=== PATIENT | female | born 1945 | race Caucasian/White ===

== ENCOUNTER 2017-11-22 20:18 | Emergency (ER) | payer BC, MEDICARE, SELFPAY ==
[2017-11-22 20:43] VITALS: BP 132/74; PULSE 76; RESP 20; TEMP 36.8; O2SAT 98; BMI 30.5
--- NOTE | 2017-11-22 21:11 | XR_ITS ---
XR knee RT 3V HISTORY: Pain following injury ITS.REASON: FELL AT HOME ORDERING PHYSICIAN: Ana Cristina Xavier PATIENT AGE: 72 years COMPARISON: 06/24/2014 FINDINGS: No fracture or dislocation. No lytic or blastic change. Normal mineralization. Mild tricompartmental osteoarthritic changes are present No other significant findings IMPRESSION: Mild osteoarthritis, no acute finding
--- NOTE | 2017-11-22 21:11 | XR_ITS ---
XR knee LT 3V HISTORY: Pain following injury ITS.REASON: FELL AT HOME ORDERING PHYSICIAN: Ana Cristina Xavier PATIENT AGE: 72 years COMPARISON: 03/25/2017 FINDINGS: No fracture or dislocation. No lytic or blastic change. Normal mineralization. Mild tricompartmental osteoarthritic change. Possible small suprapatellar effusion No other significant findings IMPRESSION: No acute fracture. Mild osteoarthritis with small knee joint effusion
--- NOTE | 2017-11-22 21:27 | HMH.EDUTC ---
[facility] [place] Disposition Clinical Impression: Bilateral knee pain Qualifiers: Chronicity: unspecified Qualified Code(s): M25.561 - Pain in right knee; M25.562 - Pain in left knee Disposition: Home, Self-Care Condition on Discharge: Good Instructions: How To Perform RICE (Rest, Ice, Compress, Elevate), DI for Knee Pain Additional Instructions: Follow up with family doctor Rest legs, keep elevated and if you began to notice worsening of swelling, discoloration of legs, feet cold to touch go straight to ER Over the counter Motrin or Tylenol as needed for pain Follow up with Orthopedics if needed The radiologist will read your xray, if they seen any different findings from what was told to you in the [facility] we will call you Return if needed Referrals: Ray Rose MD [Primary Care Provider] - 3 days (24-48 hours if no improvement or worsening of symptoms) Forms: Work/School Release Time of Disposition: 21:48 Medical Decision Making - Medical Records Medical records reviewed: Yes: I reviewed the patient's medical records. - Celso Inquiry Pt receiving controlled substance: No Celso was queried for this patient: No Vital Signs: 11/22/17 20:43 Temperature 98.2 F Temperature Source Temporal Artery Scan Pulse Rate [Right] 76 Respiratory Rate 20 Blood Pressure [Right Arm] 132/74 Blood Pressure Mean [Right Arm] 93 Blood Pressure Source [Right Arm] Automatic Cuff Blood Pressure Position [Right Arm] Sitting 02 Sat by Pulse Oximetry 98 Oxygen Delivery Method Room Air Orders (Tests/Meds): ORDERS Category Date Time Status Knee XR left 3 views [XR knee LT 3V] Stat Exams 11/22/17 21:11 Taken XR knee RT 3V Stat Exams 11/22/17 21:11 Taken - Radiology Data #1 Image(s): Other (Bilateral knee xrays) Image Reviewed: Yes I reviewed the patient's radiology image Preliminary Findings: No Fracture Seen (Will have radiologist do official reading and call patient if any different finding) [facility] [place] HPI - General Stated complaint: AO [id number] Fell on knees/Pain at location Time Seen by Provider: 11/22/17 20:45 Mode of Arrival: Ambulatory Source of Information: Patient Limitations: No Limitations Description of Symptoms (Recalled from Triage Doc. by RN): FELL YESTERDAY, PAIN TO BOTH KNEES HEENT Symptoms (Recalled from RN notes): No Resp Symptoms (Recalled from RN notes): No Skin Symptoms (Recalled from RN notes): No MS Symptoms (Recalled from RN notes): Yes Functional Status (Recalled from RN notes): N - History of Present Illness Provider Complaint: Patient state that she has had a history of problems with her knees State that yesterday she fell and landed on both her knees and now she is having pain and bruising and wanted to come in and get a MRI done - Related Data Allergies Allergy/AdvReac Type Severity Reaction Status Date / Time No Known Allergies Allergy Verified 11/22/17 20:49 - Worker's Comp Is this a Worker's Comp case?: No H History I have reviewed the patient's past medical history: Yes - Social History Alcohol Intake: never - Psychiatric History Expresses thoughts of harming self/others: None Suicide Plan Description: No Plan ROS Obtained: Yes All systems reviewed & no additional complaints - Allergic/Immunologic Comments: Bilateral knee pain and swelling after falling yesterday and landing on her knees Physical Exam - General General appearance: alert, in no apparent distress - Respiratory Respiratory exam: Present: normal lung sounds bilaterally. Absent: respiratory distress - Cardiovascular Cardiovascular exam: Present: regular rate, normal rhythm. Absent: JVD - Abdominal Exam Abdominal exam: Present: soft, normal bowel sounds. Absent: distention, tenderness, guarding - Expanded Lower Extremity Exam bilateral Knee exam: Present: tenderness, swelling, other - Neurological Exam Neurological exam: Present: alert, oriented X3 - Other Other exam informati
--- NOTE | 2017-11-22 21:30 | ED_ITS ---
[facility] [place] Clinical Impression: Bilateral knee pain Qualifiers: Chronicity: unspecified Qualified Code(s): M25.561 - Pain in right knee; M25.562 - Pain in left knee Disposition: Home, Self-Care Condition on Discharge: Good Instructions: How To Perform RICE (Rest, Ice, Compress, Elevate), DI for Knee Pain Additional Instructions: Follow up with family doctor Rest legs, keep elevated and if you began to notice worsening of swelling, discoloration of legs, feet cold to touch go straight to ER Over the counter Motrin or Tylenol as needed for pain Follow up with Orthopedics if needed The radiologist will read your xray, if they seen any different findings from what was told to you in the [facility] we will call you Return if needed Referrals: Ray Rose MD [Primary Care Provider] - 3 days (24-48 hours if no improvement or worsening of symptoms) Forms: Work/School Release Time of Disposition: 21:48 Medical Decision Making - Medical Records Medical records reviewed: Yes: I reviewed the patient's medical records. - Celso Inquiry Pt receiving controlled substance: No Celso was queried for this patient: No Vital Signs: 11/22/17 20:43 Temperature 98.2 F Temperature Source Temporal Artery Scan Pulse Rate [Right] 76 Respiratory Rate 20 Blood Pressure [Right Arm] 132/74 Blood Pressure Mean [Right Arm] 93 Blood Pressure Source [Right Arm] Automatic Cuff Blood Pressure Position [Right Arm] Sitting 02 Sat by Pulse Oximetry 98 Oxygen Delivery Method Room Air Orders (Tests/Meds): ORDERS Category Date Time Status Knee XR left 3 views [XR knee LT 3V] Stat Exams 11/22/17 21:11 Taken XR knee RT 3V Stat Exams 11/22/17 21:11 Taken - Radiology Data #1 Image(s): Other (Bilateral knee xrays) Image Reviewed: Yes I reviewed the patient's radiology image Preliminary Findings: No Fracture Seen (Will have radiologist do official reading and call patient if any different finding) [facility] [place] HPI - General Stated complaint: AO [id number] Fell on knees/Pain at location Time Seen by Provider: 11/22/17 20:45 Mode of Arrival: Ambulatory Source of Information: Patient Limitations: No Limitations Description of Symptoms (Recalled from Triage Doc. by RN): FELL YESTERDAY, PAIN TO BOTH KNEES HEENT Symptoms (Recalled from RN notes): No Resp Symptoms (Recalled from RN notes): No Skin Symptoms (Recalled from RN notes): No MS Symptoms (Recalled from RN notes): Yes Functional Status (Recalled from RN notes): N - History of Present Illness Provider Complaint: Patient state that she has had a history of problems with her knees State that yesterday she fell and landed on both her knees and now she is having pain and bruising and wanted to come in and get a MRI done - Related Data Allergies Allergy/AdvReac Type Severity Reaction Status Date / Time No Known Allergies Allergy Verified 11/22/17 20:49 - Worker's Comp Is this a Worker's Comp case?: No H History I have reviewed the patient's past medical history: Yes - Social History Alcohol Intake: never - Psychiatric History Expresses thoughts of harming self/others: None Suicide Plan Description: No Plan ROS Obtained: Yes All systems reviewed & no additional complaints - Allergic/Immunologic Comments: Bilateral knee pain and swelling after falling yesterday and landing
[2017-11-22 21:41] VITALS: BP 132/74; PULSE 76; RESP 20; TEMP 36.8
== END 2017-11-22 21:51 | disposition home or self-care (01) ==
PROVIDERS: Emergency Provider Nurse Practitioner; Family Provider Family Medicine; PCP Family Medicine
DX: M25.562 Pain in left knee (principal); M25.561 Pain in right knee; W01.0XXA Fall on same level from slipping, tripping and stumbling without subsequent striking against object, initial encounter; Y92.019 Unspecified place in single-family (private) house as the place of occurrence of the external cause
CPT/HCPCS: 73562; 99201

== ENCOUNTER → 2019-07-01 15:04 | Outpatient (CLI) | payer MEDICARE, SELFPAY ==
--- NOTE | 2019-07-01 15:20 | MM_ITS ---
PROCEDURE: MM DIG SCREENING MAMM BI W/CAD Patient Age:74Y CLINICAL INDICATION: SCREENING routine screening mammogram with no hormones. No new complaints. Noncontributory family history COMPARISON: DMDXUAVR DIG MAMM-DX UNIL ADD VIEWS-RT from 11/27/2010 DMSB DIGITAL MAMM-SCREEN BILATERAL from 11/29/2011 DMSB DIGITAL MAMM-SCREEN BILATERAL from 11/28/2012 DIGMAMMS MAMMOGRAM SCREEN-NAIL SETTER N/C from 12/10/2013 DMSB DIG MAMM-SCREEN SHERMAN from 12/20/2014 DMSB DIG MAMM-SCREEN SHERMAN from 05/03/2016 DMSB DIG MAMM-SCREEN SHERMAN W/CAD from 05/28/2017 TECHNIQUE: Standard CC and MLO images were obtained. R2 CAD reviewed. Additional left MLO view included nipple profile FINDINGS: Low-density breast with generalized fatty replacement. No dominant or suspicious mass. No significant new findings, no suspicious calcifications. Bilateral follow-up 1 year recommended Right breast. No new areas of significant concern Scattered areas minimal density on MLO and cc view or have been present since 2013 and 2012. A no significant new findings Left breast., unremarkable IMPRESSION: Stable bilateral mammogram.. Follow-up 1 year recommended BI-RAD Category: 1 Negative FOLLOW-UP: 1YR 1 Year Follow-up (A letter has been sent to the patient regarding results of the study.) Dictated by: Gideon Baca MD 07/02/2019 13:36 Electronically signed by Gideon Baca MD in [place] 07/02/2019 13:36
== END ==
PROVIDERS: PCP Family Medicine; Visit Provider Obstetrics & Gynecology
DX: Z12.31 Encounter for screening mammogram for malignant neoplasm of breast (principal)
CPT/HCPCS: 77067

== ENCOUNTER → 2019-10-16 09:32 | Outpatient (CLI) | payer OTHER, SELFPAY ==
--- NOTE | 2019-10-16 09:49 | XR_ITS ---
PROCEDURE: XR RIBS RT MIN 3V W CXR1V CLINICAL INDICATION: RIB FX Right mid to lower rib pain following injury COMPARISON: CXR CHEST(2 VIEWS-NOT PORTABLE) from 10/02/2013 FINDINGS: A frontal view of the chest shows no acute finding. There is a subtle lucency through the anterior aspect of the right 4th rib suggesting a nondisplaced fracture. No other significant anomalies. Postsurgical changes right shoulder. IMPRESSION: Possible nondisplaced fracture right 4th rib Dictated by: Carlos Navarro MD 10/16/2019 12:53 Electronically signed by Carlos Navarro MD in [place] 10/16/2019 12:53
== END ==
PROVIDERS: PCP Family Medicine; Visit Provider Anesthesiology Pain Medicine
DX: S22.39XA Fracture of one rib, unspecified side, initial encounter for closed fracture (principal)
CPT/HCPCS: 71101

== ENCOUNTER → 2020-04-15 12:30 | Outpatient (CLI) | payer MEDICARE, SELFPAY ==
--- NOTE | 2020-04-15 12:44 | XR_ITS ---
PROCEDURE: XR HIP LT 2-3V W/PELVIS CLINICAL INDICATION: LT HIP OA Left hip pain COMPARISON: No exams were available for comparison FINDINGS: There are moderate osteoarthritic changes of the left hip with loss of joint space osteosclerosis and osteophyte formation. No fracture or dislocation. No lytic or blastic change. There are incidental mild osteoarthritic changes of the right hip. 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
== END ==
PROVIDERS: PCP Family Medicine; Visit Provider Anesthesiology Pain Medicine
DX: M76.11 Psoas tendinitis, right hip (principal)
CPT/HCPCS: 73502

== ENCOUNTER → 2020-06-09 12:53 | Outpatient (CLI) | payer MEDICARE, SELFPAY ==
--- NOTE | 2020-06-09 12:59 | MM_ITS ---
PROCEDURE: MM DIG SCREENING MAMM BI W/CAD Referring Doctor: Leo Dennis Patient Age:75Y CLINICAL INDICATION: SCREENING 75-year-old. 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 R2 CAD reviewed. Bilateral digital breast tomosynthesis included. Additional nipple profile left MLO view included FINDINGS: Low-density breast generalized fatty replacement. No significant new areas of concern, either breast. No no new suspicious mass. No suspicious calcifications. Right breast: No significant new areas of concern Minimal area nodularity superior breast have been seen on studies dating back to 2011 on MLO view and most consistent stable on CC view; no significant new features right breast but would encourage follow-up 1 year Left breast. . Small 6 mm oil cyst at the inferior left breast which is slightly more apparent today's study but a has benign appearance with fat density centrally and minimal thin rim calcification. Benign appearance on today's images and tomosynthesis, but would suggest ongoing follow-up 1 year for continued evaluation No significant new areas of concern Bilateral follow-up 1 year recommended should be encouraged/emphasized.. IMPRESSION: No significant new areas of concern Bilateral follow-up 1 year recommended should be encouraged/emphasized Left breast: Small 6 mm oil cyst inferior left breast has become apparent but has benign features and follow-up 1 year adequate Right breast. Stable appearing minor nodularity superior right breast. BI-RAD Category: 2 Benign Finding(s) FOLLOW-UP: 1YR 1 Year Follow-up (A letter has been sent to the patient regarding results of the study.) Is Dictated by: Gideon Baca MD 06/12/2020 21:54 Gideon Baca MD in [place] 06/12/2020 21:54
== END ==
PROVIDERS: PCP Family Medicine; Visit Provider Family Medicine
DX: Z12.31 Encounter for screening mammogram for malignant neoplasm of breast (principal)
CPT/HCPCS: 77063; 77067

== ENCOUNTER 2020-07-16 20:38 | Emergency (ER) | payer MEDICARE, SELFPAY ==
[2020-07-16] VITALS (7 sets, daily range): BP systolic 139–161; BP diastolic 65–94; PULSE 64–85; RESP 14–18; TEMP 36.8; O2SAT 94–99; BMI 29.7
[2020-07-16 21:23] LABS: Basophils % 0.4 % (0.1-2.0); Eosinophils # 0.1 K/mm3 (0.0-0.4); Eosinophils % 0.7 % (0.1-12.0); Hematocrit 46.6 % (37.0-47.0); Hemoglobin 15.5 g/dL (12.2-16.2); Lymphocytes # 1.5 K/mm3 (0.7-4.5); Lymphocytes % 21.3 % (10-50); Mean Corpuscular HGB Conc 33.2 g/dL (31.8-35.4); Mean Corpuscular Hemoglobin 29.7 pg (27.0-31.2); Mean Corpuscular Volume 89.7 fl (81-99); Mean Platelet Volume 8.1 fl (7.4-10.4); Monocytes # 0.3 K/mm3 (0.1-1.0); Monocytes % 4.5 % (1.7-9.3); Neutrophils # 5.2 K/mm3 (1.8-7.8); Neutrophils % 73.1 % (37.0-80.0); Platelet Count 391 K/mm3 (142-424); Red Cell Distribution Width 14.4 % (11.5-17.5); White Blood Count 7.1 K/mm3 (4.8-10.8)
[2020-07-16 21:27] LABS: Alanine Aminotransferase 19 U/L (12-78); Albumin Level 4.6 g/dl (3.5-5.0); Albumin/Globulin Ratio 1.5 (1.1-1.8); Alkaline Phosphatase 78 U/L (38-126); Anion Gap 14.9 mEq/L (5-15); Aspartate Amino Transferase 27 U/L (14-36); Bilirubin,Total 0.6 mg/dl (0.2-1.3); Blood Urea Nitrogen 15 mg/dl (7-17); Calcium 10.3 mg/dl (8.4-10.2); Carbon Dioxide 26 mmol/L (22.0-30.0); Chloride 100 mmol/L (98-107); Creatinine Clearance Estimated 62 mL/min (50-200); Estimated Glomerular Filt Rate 70 ml/min (>60); GFR (African American) 85 ML/MIN (>60); Globulin 3.1 g/dL (1.3-3.2); Glucose 125 mg/dl (74-100); Potassium 3.9 mmoL/L (3.5-5.1); Sodium 137 mmol/L (136-145); Total Protein,Serum 7.7 g/dl (6.3-8.2)
--- NOTE | 2020-07-16 22:43 | HMH.EDNVD ---
ED Disposition Clinical Impression: Gastroenteritis Disposition: Home, Self-Care Condition on Discharge: Good Instructions: DI for Diarrhea and Traveler's Diarrhea -- Adult, DI for Diarrhea and Traveler's Diarrhea -- Child, DI for Nausea -- Adult, DI for Nausea -- Child Prescriptions: Ondansetron [Zofran 4mg ODT] 4 mg PO TID PRN 4 Days #15 tab.rapdis PRN Reason: Nausea Transmission Status: Received by [facility] #[id number] Referrals: Leo Dennis MD [Primary Care Provider] - - Critical Care Critical Care Time: No Attestation: On 07/16/20, the high probability of a clinically significant, sudden or life threatening deterioration of the following system(s) required my full and direct attention, intervention and personal management. The time I documented below is in addition to time spent performing reported procedures but includes the following listed in this critical care notation. Medical Decision Making - Medical Records Medical records reviewed: Yes: I reviewed the patient's medical records. - Celso Inquiry Pt receiving controlled substance: No Vital Signs: 07/16/20 20:39 07/16/20 21:39 07/16/20 22:00 Temperature 98.2 F Temperature Source Oral Pulse Rate [Left Radial] 85 70 68 Respiratory Rate 18 16 17 Blood Pressure [Left Arm] 155/94 H 139/74 140/84 Blood Pressure Mean [Left Arm] 114 95 102 Blood Pressure Source [Left Arm] Automatic Cuff Automatic Cuff Automatic Cuff Blood Pressure Position [Left Arm] Sitting Supine Supine 02 Sat by Pulse Oximetry 98 98 99 Oxygen Delivery Method Room Air Room Air Room Air 07/16/20 22:30 07/16/20 23:00 07/16/20 23:30 Temperature Temperature Source Pulse Rate [Left Radial] 66 70 67 Respiratory Rate 17 17 17 Blood Pressure [Left Arm] 154/76 H 153/75 H 154/71 H Blood Pressure Mean [Left Arm] 102 101 98 Blood Pressure Source [Left Arm] Automatic Cuff Automatic Cuff Automatic Cuff Blood Pressure Position [Left Arm] Supine Supine Supine 02 Sat by Pulse Oximetry 98 97 96 Oxygen Delivery Method Room Air Room Air Room Air - Lab Data Lab results reviewed: Yes: I reviewed the patient's lab results. Lab Results 07/16/20 21:10: WBC 7.1, RBC 5.20, Hgb 15.5, Hct 46.6, MCV 89.7, MCH 29.7, MCHC 33.2, RDW 14.4, Plt Count 391, MPV 8.1, Neut % (Auto) 73.1, Lymph % (Auto) 21.3, Cassia % (Auto) 4.5, Eos % (Auto) 0.7, Baso % (Auto) 0.4, Neut # (Auto) 5.2, Lymph # (Auto) 1.5, Cassia # (Auto) 0.3, Eos # (Auto) 0.1, Baso # (Auto) 0.0 07/16/20 21:10: Sodium 137, Potassium 3.9, Chloride 100, Carbon Dioxide 26, Anion Gap 14.9, BUN 15, Creatinine 0.80, Estimated Creat Clear 62, Estimated GFR 70, Est GFR ( Amer) 85, Glucose 125 H, Calcium 10.3 H, Total Bilirubin 0.6, AST 27, ALT 19, Alkaline Phosphatase 78, Total Protein 7.7, Albumin 4.6, Globulin 3.1, Albumin/Globulin Ratio 1.5 Result diagrams: 07/16/20 21:10 07/16/20 21:10 Orders (Tests/Meds): ED MEDICATIONS Generic Name Dose Route Start Last Admin Trade Name Freq PRN Reason Stop Dose Admin Sodium Chloride 1,000 mls @ 999 mls/hr 07/16/20 21:00 07/16/20 21:18 Sod Chlor 0.9% 1000ml Bag IV 07/16/20 22:00 999 mls/hr .Q1H1M JEREMIAS Administration Sodium Chloride 1,000 mls @ 999 mls/hr 07/16/20 22:45 07/16/20 22:44 Sod Chlor 0.9% 1000ml Bag IV 07/16/20 23:45 999 mls/hr .Q1H1M JEREMIAS Administration Discontinued Medications Generic Name Dose Route Start Last Admin Trade Name Freq PRN Reason Stop Dose Admin Dihydroergotamine Mesylate 1 mg 07/16/20 22:42 07/16/20 22:44 Dihydroergotamine 1mg/Ml Amp IVP 07/16/20 22:43 1 mg ONCE ONE Administration Diphenhydramine HCl 25 mg 07/16/20 21:58 07/16/20 22:01 Diphenhydramine 50mg/Ml Vial IV 07/16/20 21:59 25 mg ONCE ONE Administration Ketorolac Tromethamine 30 mg 07/16/20 21:07 07/16/20 21:18 Ketorolac 30mg/Ml Vial IV 07/16/20 21:08 30 mg ONCE ONE Administration Methylprednisolone Sodium Succinate 125 mg 11
== END 2020-07-17 00:14 | disposition home or self-care (01) ==
PROVIDERS: Emergency Provider Family Medicine; PCP Family Medicine
DX: K52.9 Noninfective gastroenteritis and colitis, unspecified (principal); E78.5 Hyperlipidemia, unspecified; R01.1 Cardiac murmur, unspecified; Z79.899 Other long term (current) drug therapy; Z90.49 Acquired absence of other specified parts of digestive tract; Z90.710 Acquired absence of both cervix and uterus
CPT/HCPCS: 80053; 85025; 96365; 96366; 96375; 99283; J1110; J2405

== ENCOUNTER → 2021-06-13 15:52 | Outpatient (CLI) | payer MEDICARE, SELFPAY ==
[2021-06-13 16:29] LABS: Basophils # 0.1 K/mm3 (0-0.2); Basophils % 0.8 % (0.1-2.0); Eosinophils # 0.1 K/mm3 (0.0-0.4); Eosinophils % 1.8 % (0.1-12.0); Hemoglobin 12.5 g/dL (12.2-16.2); Lymphocytes # 1.8 K/mm3 (0.7-4.5); Lymphocytes % 25.1 % (10-50); Mean Corpuscular HGB Conc 32.9 g/dL (31.8-35.4); Mean Corpuscular Volume 88.1 fl (81-99); Mean Platelet Volume 8.3 fl (7.4-10.4); Monocytes # 0.4 K/mm3 (0.1-1.0); Monocytes % 5.4 % (1.7-9.3); Neutrophils # 4.8 K/mm3 (1.8-7.8); Platelet Count 347 K/mm3 (142-424); Red Blood Count 4.31 M/mm3 (4.20-5.40); Red Cell Distribution Width 14.6 % (11.5-17.5); White Blood Count 7.1 K/mm3 (4.8-10.8)
[2021-06-13 16:51] LABS: Strep Scrn Group A (Rapid) Positive (Negative)
== END ==
PROVIDERS: PCP Family Medicine; Visit Provider Nurse Practitioner
DX: Z20.822 Contact with and (suspected) exposure to COVID-19 (principal); J02.0 Streptococcal pharyngitis
CPT/HCPCS: 36415; 85025; 87275; 87276; 87430; C9803; U0003; U0005

== ENCOUNTER → 2021-07-24 13:06 | Outpatient (CLI) | payer MEDICARE, SELFPAY ==
--- NOTE | 2021-07-24 13:10 | MM_ITS ---
PROCEDURE INFORMATION: Exam: MG Bilateral Screening 3D Mammography Exam date and time: 07/24/2021 1:10 PM Age: 76 years old Clinical indication: Encounter for screening mammogram for malignant neoplasm of breast TECHNIQUE: Imaging protocol: Bilateral screening tomosynthesis and 2D mammography including computer-aided detection (CAD) when performed. COMPARISON: 1. MG MM DIG SCREENING MAMM BI W/CAD 06/09/2020 1:02 PM 2. MG MM DIG SCREENING MAMM BI W/CAD 07/01/2019 3:35 PM 3. MG DMSB DIG MAMM-SCREEN SHERMAN W/CAD 05/28/2017 5:28 PM FINDINGS: MAMMOGRAPHY: Breast composition: There are scattered areas of fibroglandular density. Mass: No suspicious masses. Architectural distortion: Questionable focus of architectural distortion noted in the retroareolar left breast, only well seen on MLO projection. Finding may represent overlapping breast parenchyma. Calcifications: No suspicious calcifications. Asymmetric density: None. Skin thickening: None. Axillary adenopathy: None. IMPRESSION: 1. Recommend left breast spot compression CC/MLO view and ultrasound for further evaluation of a questionable area of architectural distortion in the retroareolar left breast. 2. No definite mammographic evidence of malignancy in the right breast. ASSESSMENT: BI-RADS Category 0: Incomplete- Need Additional Imaging Evaluation and/or Prior Mammograms for Comparison
== END ==
PROVIDERS: PCP Family Medicine; Visit Provider Family Medicine
DX: Z12.31 Encounter for screening mammogram for malignant neoplasm of breast (principal)
CPT/HCPCS: 77063; 77067

== ENCOUNTER → 2021-08-17 13:58 | Outpatient (CLI) | payer MEDICARE, SELFPAY ==
--- NOTE | 2021-08-17 14:02 | MM_ITS ---
PROCEDURE INFORMATION: Exam: US Left Breast, Complete MG Left Diagnostic Breast Tomosynthesis Exam date and time: 08/17/2021 2:02 PM Age: 76 years old Clinical indication: Patient recalled for further evaluation of questionable distortion in the left retroareolar region seen on mammogram dated 07/24/2021 TECHNIQUE: Imaging protocol: Complete ultrasound of all four quadrants of the Left breast and the retroareolar regions, including ultrasound of the axilla when performed. Left Diagnostic tomosynthesis and 2D mammography including computer-aided detection (CAD) when performed. Unilateral or bilateral exam. COMPARISON: 1. MG MM DIG SCREENING MAMM BI W/CAD 07/24/2021 1:20 PM 2. MG MM DIG SCREENING MAMM BI W/CAD 06/09/2020 1:02 PM FINDINGS: MAMMOGRAPHY: Digital diagnostic spot compression views of the left breast and 90 degree lateral view of the left breast demonstrate normal overlapping fibroglandular structures without persistent mass or distortion identified. ULTRASOUND: Sonographic images of the left breast including the retroareolar region, all 4 quadrants and the axilla do not demonstrate any solid masses. Incidental 0.5 cm cyst in the 6 o'clock infra-areolar region. No architectural distortion or acoustical shadowing. No skin thickening or axillary adenopathy. IMPRESSION: No mammographic or sonographic evidence of malignancy. Annual bilateral mammographic screening is recommended unless otherwise clinically indicated. ASSESSMENT: BI-RADS Category 2: Benign
== END ==
PROVIDERS: PCP Family Medicine; Visit Provider Family Medicine
DX: R92.8 Other abnormal and inconclusive findings on diagnostic imaging of breast (principal)
CPT/HCPCS: 76641; 77061; 77065; G0279

== ENCOUNTER → 2021-11-02 11:53 | Outpatient (CLI) | payer MEDICARE, SELFPAY ==
--- NOTE | 2021-11-02 12:02 | XR_ITS ---
FINAL REPORT CLINICAL HISTORY: COVID TESTING, cough COMPARISON: October 16, 2019 FINDINGS: SINGLE VIEW CHEST The heart size is normal in size. The mediastinum is within normal limits. No acute pulmonary abnormality is identified. There is no evidence of pneumothorax. The bony thorax is intact. There are postoperative changes of the right humeral head. IMPRESSION: No acute cardiopulmonary process. Reviewed, Interpreted and Dictated by Jarrell Bardales III, MD Transcribed by JAMAICA Puga Authenticated by Jarrell Bardales III, MD on 11/02/2021 01:07:[address] [facility]
[2021-11-02 12:53] LABS: Basophils # 0.1 K/mm3 (0-0.2); Basophils % 2.1 % (0.1-2.0); Eosinophils # 0.1 K/mm3 (0.0-0.4); Eosinophils % 2.1 % (0.1-12.0); Hematocrit 43.3 % (37.0-47.0); Hemoglobin 13.7 g/dL (12.2-16.2); Lymphocytes # 1.8 K/mm3 (0.7-4.5); Lymphocytes % 28.3 % (10-50); Mean Corpuscular HGB Conc 31.6 g/dL (31.8-35.4); Mean Corpuscular Hemoglobin 28.6 pg (27.0-31.2); Mean Corpuscular Volume 90.5 fl (81-99); Mean Platelet Volume 8.4 fl (7.4-10.4); Monocytes # 0.4 K/mm3 (0.1-1.0); Monocytes % 6.6 % (1.7-9.3); Platelet Count 428 K/mm3 (142-424); Red Blood Count 4.78 M/mm3 (4.20-5.40); Red Cell Distribution Width 14.8 % (11.5-17.5); White Blood Count 6.5 K/mm3 (4.8-10.8)
== END ==
PROVIDERS: PCP Family Medicine; Visit Provider Physician Assistant
DX: Z20.822 Contact with and (suspected) exposure to COVID-19 (principal)
CPT/HCPCS: 36415; 71045; 85025; C9803; U0003; U0005

== ENCOUNTER → 2021-11-22 12:43 | Outpatient (CLI) | payer MEDICARE, SELFPAY ==
[2021-11-22 12:53] LABS: Adenovirus F 40/41, stool Not Detected (NotDetected); Astrovirus Not Detected (NotDetected); Campylobacter Not Detected (NotDetected); Clostridium Difficile A/B, PCR Not Detected (NotDetected); Cryptosporidium Not Detected (NotDetected); Cyclospora Cayetanesis Not Detected (NotDetected); Entamoeba histolytica Not Detected (NotDetected); Enteroaggregative E coli Not Detected (NotDetected); Enteropathogenic E coli Not Detected (NotDetected); Enterotoxigenic E coli Not Detected (NotDetected); Giardia lamblia Not Detected (NotDetected); Plesimonas Shigalloides, PCR Not Detected (NotDetected); Rotavirus A Not Detected (NotDetected); Salmonella, PCR Not Detected (NotDetected); Sapovirus Not Detected (NotDetected); Shiga-like toxin E coli Not Detected (NotDetected); Shigella Enterovasive E coli Not Detected (NotDetected); Vibrio Cholerae Not Detected (NotDetected); Vibrio, PCR Not Detected (NotDetected); Yersinia Entercolitica, PCR Not Detected (NotDetected)
[2021-11-22 13:21] LABS: Basophils # 0.1 K/mm3 (0-0.2); Basophils % 1.5 % (0.1-2.0); Eosinophils # 0.2 K/mm3 (0.0-0.4); Eosinophils % 4.2 % (0.1-12.0); Hematocrit 39.7 % (37.0-47.0); Hemoglobin 12.8 g/dL (12.2-16.2); Lymphocytes # 1.3 K/mm3 (0.7-4.5); Lymphocytes % 36.6 % (10-50); Mean Corpuscular HGB Conc 32.1 g/dL (31.8-35.4); Mean Corpuscular Volume 90.2 fl (81-99); Mean Platelet Volume 8.3 fl (7.4-10.4); Monocytes # 0.2 K/mm3 (0.1-1.0); Monocytes % 6.3 % (1.7-9.3); Neutrophils # 1.9 K/mm3 (1.8-7.8); Neutrophils % 51.4 % (37.0-80.0); Platelet Count 340 K/mm3 (142-424); Red Blood Count 4.41 M/mm3 (4.20-5.40); Red Cell Distribution Width 14.9 % (11.5-17.5); White Blood Count 3.6 K/mm3 (4.8-10.8)
[2021-11-22 20:49] LABS: Norovirus Detected (NotDetected)
== END ==
PROVIDERS: Visit Provider Family Medicine
DX: R10.84 Generalized abdominal pain (principal); R50.9 Fever, unspecified; R19.7 Diarrhea, unspecified; A08.11 Acute gastroenteropathy due to Norwalk agent
CPT/HCPCS: 36415; 85025; 87506

== ENCOUNTER → 2022-06-07 18:00 | Outpatient (CLI) | payer MEDICARE, SELFPAY ==
--- NOTE | 2022-06-07 18:12 | XR_ITS ---
PROCEDURE INFORMATION: Exam: XR Bilateral Sacroiliac Joints Exam date and time: 06/07/2022 6:14 PM Age: 77 years old Clinical indication: Pain; Other: Si joints; Additional info: Right and left si joint pain. TECHNIQUE: Imaging protocol: XR Bilateral XR of the sacroiliac joints. Views: 3 or more views. COMPARISON: CR XR HIP LT 2-3V W/PELVIS 04/15/2020 12:56 PM FINDINGS: Bones/joints: Status post total left hip arthroplasty. The hardware appears intact. No acute fracture or dislocation. Soft tissues: Normal. IMPRESSION: No acute fracture or dislocation.
== END ==
PROVIDERS: PCP Family Medicine; Visit Provider Anesthesiology Pain Medicine
DX: M53.3 Sacrococcygeal disorders, not elsewhere classified (principal)
CPT/HCPCS: 72202

== ENCOUNTER → 2022-08-22 13:38 | Outpatient (CLI) | payer MEDICARE, SELFPAY ==
--- NOTE | 2022-08-22 | ECG_ITS ---
APPROVED REPORT Exam: Resting ECG HR:61 bpm ECG Measurements Heart Rate 61 AXES DC 217 P 48 QRSd 93 QRS -2 QT 394 T 4 QTc 397 Conclusion SINUS RHYTHM WITH FIRST DEGREE AV BLOCK LOW QRS VOLTAGE IN PRECORDIAL LEADS [QRS DEFLECTION < 1.0 mV IN CHEST LEADS] Isolated Q in III - previously noted ABNORMAL ECG UNCONFIRMED REPORT Electronically signed by : Ray Bernard MD 08/23/2022 20:20:34
[2022-08-22 15:45] LABS: Blood Urea Nitrogen 27 mg/dl (7-17); Estimated Glomerular Filt Rate 54 ml/min (>60); GFR (African American) 65 ML/MIN (>60)
== END ==
PROVIDERS: PCP Nurse Practitioner Family; Visit Provider Nurse Practitioner Family
DX: R55 Syncope and collapse (principal)
CPT/HCPCS: 36415; 82565; 84520; 93005; 93270

== ENCOUNTER → 2022-08-29 12:45 | Outpatient (CLI) | payer MEDICARE, SELFPAY ==
--- NOTE | 2022-08-29 12:46 | CA_ITS ---
FINAL REPORT TECHNIQUE: Color Doppler, duplex Doppler and gore scale sonography of the bilateral neck arterial vasculature was performed. Velocities were measured in the carotid arteries. Stenosis evaluation based on the validated velocity criteria. CLINICAL HISTORY: DIZZINESS,NEAR SYNCOPE,COLLIER FINDINGS: The peak systolic velocity of the right common carotid artery is 82 cm/s. The peak systolic velocity of the right internal carotid artery is 83 cm/s and end diastolic velocity 25 cm/s. The ICA/CCA ratio is 1.0. A mild amount of plaque is present. The right external carotid artery is patent. The right vertebral artery is patent with antegrade flow. The peak systolic velocity of the left common carotid artery is 74 cm/s. The peak systolic velocity of the left internal carotid artery is 94 cm/s and end diastolic velocity 35 cm/s. The ICA/CCA ratio is 1.3. A mild amount of plaque is present. The left external carotid artery is patent.The left vertebral artery is patent with antegrade flow. IMPRESSION: Less than 50% bilateral carotid stenoses. Bilateral patent vertebral arteries with antegrade flow. If indicated, CTA or MRA could further evaluate. Reviewed, Interpreted and Dictated by Jarrell Bardales III, MD Transcribed by Tory Bernal Authenticated and [facility]
--- NOTE | 2022-08-29 13:16 | CT_ITS ---
FINAL REPORT CLINICAL HISTORY: NEAR SYNCOPE FINDINGS: Axial images of the head were obtained without and with contrast. Coronal reformatted images were also obtained. This study was performed with techniques to keep radiation doses as low as reasonably achievable (ALARA). Individualized dose reduction techniques using automated exposure control or adjustment of mA and/or kV according to the patient's size were employed. There is no evidence of intracranial hemorrhage or mass. There is no evidence of acute infarct. There is no evidence of shift of the midline structures. No skull abnormality is seen on the bone window images. No abnormal contrast enhancement is seen. There are abnormal calcifications in the anterior face bilaterally that appear chronic. IMPRESSION: No acute intracranial abnormality identified. Reviewed, Interpreted and Dictated by Jarrell Bardales III, MD Transcribed by Ruslan Melara Authenticated and . [facility]
== END ==
PROVIDERS: PCP Nurse Practitioner Family; Visit Provider Nurse Practitioner Family
DX: R55 Syncope and collapse (principal)
CPT/HCPCS: 70470; 93880; Q9967

== ENCOUNTER → 2022-09-27 16:02 | Outpatient (CLI) | payer MEDICARE, SELFPAY ==
--- NOTE | 2022-09-27 16:06 | MM_ITS ---
PROCEDURE INFORMATION: Exam: MG Bilateral Screening 3D Mammography Exam date and time: 09/27/2022 4:04 PM Age: 77 years old Clinical indication: Screening examination. Her grandmother had breast cancer. TECHNIQUE: Imaging protocol: Bilateral Screening tomosynthesis and 2D mammography including computer-aided detection (CAD) when performed. COMPARISON: 1. MG MM DIG MAMM DX UNILAT LT CAD 08/17/2021 2:00 PM 2. MG MM DIG SCREENING MAMM BI W/CAD 07/24/2021 1:20 PM 3. MG MM DIG SCREENING MAMM BI W/CAD 06/09/2020 1:02 PM 4. MG MM DIG SCREENING MAMM BI W/CAD 07/01/2019 3:35 PM FINDINGS: MAMMOGRAPHY: Breast composition: There are scattered areas of fibroglandular density. Mass: No suspicious mass. Architectural distortion: None. Calcifications: No suspicious calcifications. Asymmetric density: None. Skin thickening: None. Axillary adenopathy: None. IMPRESSION: No mammographic evidence of malignancy. Annual screening is recommended unless otherwise clinically indicated. ASSESSMENT: BI-RADS Category 1: Negative
== END ==
PROVIDERS: PCP Nurse Practitioner Family; Visit Provider Family Medicine
DX: Z12.31 Encounter for screening mammogram for malignant neoplasm of breast (principal)
CPT/HCPCS: 77063; 77067

== ENCOUNTER → 2023-02-01 12:05 | Outpatient (CLI) | payer MEDICARE, SELFPAY ==
--- NOTE | 2023-02-01 12:14 | XR_ITS ---
FINAL REPORT TECHNIQUE: 5 views CLINICAL HISTORY: LOW BACK PAIN COMPARISON: None FINDINGS: There is no fracture present. There is no malalignment. There is moderate degenerative narrowing of the L5-S1 disc space. There is mild facet sclerosis in the lower lumbar spine. A left hip prosthesis is present and the gallbladder is surgically absent. IMPRESSION: Moderate degenerative narrowing of the L5-S1 disc space Mild facet sclerosis of the lower lumbar spine. Reviewed, Interpreted and Dictated by Mendoza Workman MD Transcribed by Bhumi Solo Authenticated and . [facility]
== END ==
PROVIDERS: PCP Family Medicine; Visit Provider Physician Assistant
DX: M54.50 Low back pain, unspecified (principal)
CPT/HCPCS: 72110

== ENCOUNTER → 2023-03-08 09:08 | Outpatient (CLI) | payer MEDICARE, SELFPAY ==
--- NOTE | 2023-03-08 09:19 | XR_ITS ---
FINAL REPORT TECHNIQUE: Bone mineral density was calculated of the lumbar spine and hip. CLINICAL HISTORY: . post menopausal screening FINDINGS: Using L1-4, the bone mineral density of the spine is 0.962 g/cm2, corresponding to T-score of -0.8 but this may be falsely elevated secondary to hypertrophic changes. Using the right hip, the bone mineral density of the femoral neck is 0.713 g/cm2, corresponding to a T-score of -1.2. Using the 1/3 radius, the bone mineral density of the radius is 0.573 g/cm2, corresponding to a T-score of -2.0. NOTE: T-score: Standard deviation compared with peak bone mass of young adult mean. *Following the recommendations of the International Society of Bone densitometry, classification of hip BMD is based on the lower of two T-scores; total hip or femoral neck. IMPRESSION: Diminished bone mineral density consistent with low bone density. FRAX data reports 16% major osteoporotic fracture and 2.6% hip fracture. Reviewed, Interpreted and Dictated by Jarrell Bardales III, MD Transcribed by Domi Gurrola Authenticated and [facility]
== END ==
PROVIDERS: PCP Family Medicine; Visit Provider Family Medicine
DX: Z78.0 Asymptomatic menopausal state (principal)
CPT/HCPCS: 77080

== ENCOUNTER → 2023-06-01 14:32 | Outpatient (CLI) | payer MEDICARE, SELFPAY | PROVIDERS: PCP Nurse Practitioner Family; Visit Provider Internal Medicine Gastroenterology | DX: A04.5 Campylobacter enteritis (principal) | CPT/HCPCS: 87045 ==

== ENCOUNTER → 2023-07-02 13:19 | Outpatient (CLI) | payer MEDICARE, SELFPAY ==
[2023-07-02 13:28] LABS: Adenovirus F 40/41, stool Not Detected (NotDetected); Astrovirus Not Detected (NotDetected); Campylobacter Not Detected (NotDetected); Clostridium Difficile A/B, PCR Not Detected (NotDetected); Cryptosporidium Not Detected (NotDetected); Cyclospora Cayetanesis Not Detected (NotDetected); Entamoeba histolytica Not Detected (NotDetected); Enteroaggregative E coli Not Detected (NotDetected); Enterotoxigenic E coli Not Detected (NotDetected); Giardia lamblia Not Detected (NotDetected); Norovirus Not Detected (NotDetected); Plesimonas Shigalloides, PCR Not Detected (NotDetected); Rotavirus A Not Detected (NotDetected); Salmonella, PCR Not Detected (NotDetected); Sapovirus Not Detected (NotDetected); Shiga-like toxin E coli Not Detected (NotDetected); Shigella Enterovasive E coli Not Detected (NotDetected); Vibrio Cholerae Not Detected (NotDetected); Vibrio, PCR Not Detected (NotDetected); Yersinia Entercolitica, PCR Not Detected (NotDetected)
[2023-07-04 09:02] LABS: Enteropathogenic E coli Detected (NotDetected)
== END ==
PROVIDERS: PCP Family Medicine; Visit Provider Nurse Practitioner Family
DX: R19.7 Diarrhea, unspecified (principal); A04.0 Enteropathogenic Escherichia coli infection
CPT/HCPCS: 87506

== ENCOUNTER 2023-10-16 12:53 | Outpatient (CLI) | payer MEDICARE, SELFPAY ==
--- NOTE | 2023-10-16 13:02 | MM_ITS ---
PROCEDURE INFORMATION: Exam: MG Bilateral Screening 3D Mammography Exam date and time: 10/16/2023 12:51 PM Age: 78 years old Clinical indication: Screening mammogram TECHNIQUE: Imaging protocol: Bilateral Screening tomosynthesis and 2D mammography including computer-aided detection (CAD) when performed. COMPARISON: 1. MG MM DIG SCREENING MAMM BI W/CAD 09/27/2022 4:04 PM 2. MG MM DIG MAMM DX UNILAT LT CAD 08/17/2021 2:00 PM 3. MG MM DIG SCREENING MAMM BI W/CAD 07/24/2021 1:20 PM 4. MG MM DIG SCREENING MAMM BI W/CAD 06/09/2020 1:02 PM FINDINGS: MAMMOGRAPHY: Breast composition: The breasts are almost entirely fatty. Mass: None. Architectural distortion: No new or suspicious architectural distortion. Calcifications: No new or suspicious calcifications are present Asymmetric density: No new or suspicious asymmetric density is present Skin thickening: None. Axillary adenopathy: None. IMPRESSION: No mammographic evidence of malignancy. Recommend annual screening mammography unless otherwise clinically indicated. ASSESSMENT: BI-RADS category 1: Negative
== END 2023-10-16 23:59 ==
LOC: RAD 12:54
PROVIDERS: PCP Family Medicine; Visit Provider Family Medicine
DX: Z12.31 Encounter for screening mammogram for malignant neoplasm of breast (principal)
CPT/HCPCS: 77063; 77067

== ENCOUNTER 2024-06-23 18:33 | Emergency (ER) | payer MEDICARE, SELFPAY ==
[2024-06-23] VITALS (7 sets, daily range): BP systolic 156–184; BP diastolic 85–98; PULSE 63–77; RESP 16–18; TEMP 36.8–36.9; O2SAT 95–98; BMI 30.9
--- NOTE | 2024-06-23 19:28 | HMH.EDGENADL ---
Discharge Plan Disposition Patient Disposition: Home, Self-Care Condition: Good Prescriptions Prescriptions: No Action celecoxib 200 MG capsule 200 mg PO DAILY cyclobenzaprine 10 MG tablet 10 mg PO TIDP PRN (Reason: Anxiety) buspirone 5 MG tablet 5 mg PO BID meloxicam 15 MG tablet 15 mg PO DAILY valacyclovir 500 MG tablet 500 mg PO BID Patient Comments: TK 1 T PO BID misoprostol 200 MCG tablet 200 mcg PO HS morphine 15 MG tablet extended release 15 mg PO Q12H PRN (Reason: pain) ezetimibe 10 MG tablet 10 mg PO DAILY ondansetron 4 MG tablet,disintegrating 4 mg PO TID PRN (Reason: Nausea) 4 Days Qty: 15 0RF Referrals Follow up/Referrals: Leo Dennis MD [Primary Care Provider] - See instructions Activity Restrictions/Add. Instructions Additional Instructions/Restrictions: We did not find any acute fractures today however they did not rule out any soft tissue injuries. Please follow-up with your orthopedic surgeon as scheduled for further management for no improvement or worsening signs or symptoms. Return to ER for any worsening signs or symptoms as needed. Clinical Impressions Clinical Impression: Hematoma of right knee region Fall Qualifiers: Encounter type: initial encounter Qualified Code(s): W19.XXXA - Unspecified fall, initial encounter Print Language Print Language: Kyrgyz Discharge ED Provider: Vidal Hernandez General Adult HPI <JAMAICA Batista - Last Filed: 06/23/24 22:42> General Chief complaint: Fall Stated complaint: AO 06-23 fell and hurt right knee and shoulder Time Seen by Provider: 06/23/24 19:27 History of Present Illness HPI narrative: Patient presents for evaluation after a fall. Patient slipped on a rug at her home landing on her right side. She reports right upper humerus pain, right knee pain. She was unable to bear weight on her knee after her injury but she was able to move her arm however it is began to become more stiff since her fall. She did not strike her head did not lose consciousness but is complaining of right-sided neck muscular pain and no midline cervical tenderness. She is not on a blood thinner. She denies any fever shortness of breath numbness or tingling. Related Data Home Medications ?Medication ?Instructions ?Recorded ?Confirmed buspirone 5 mg tablet 5 mg PO BID Anxiety 07/16/20 07/16/20 celecoxib 200 mg capsule 200 mg PO DAILY Pain 07/16/20 07/16/20 cyclobenzaprine 10 mg tablet 10 mg PO TIDP PRN Anxiety 07/16/20 07/16/20 ezetimibe 10 mg tablet 10 mg PO DAILY Cholesterol 07/16/20 07/16/20 meloxicam 15 mg tablet 15 mg PO DAILY bowel 07/16/20 07/16/20 misoprostol 200 mcg tablet 200 mcg PO HS Supplement 07/16/20 07/16/20 morphine 15 mg tablet,extended 15 mg PO Q12H PRN pain 07/16/20 07/16/20 release valacyclovir 500 mg tablet 500 mg PO BID . 07/16/20 07/16/20 Previous Rx's ?Medication ?Instructions ?Recorded ondansetron 4 mg disintegrating 4 mg PO TID PRN Nausea 4 days ##15 07/16/20 tablet Allergies Allergy/AdvReac Type Severity Reaction Status Date / Time aspirin AdvReac Unknown Verified 06/23/24 19:42 allergy reaction Sgwqara-CIN-NkD Reductase AdvReac Unknown Verified 06/23/24 19:42 Inhibitor allergy reaction PFSH <JAMAICA Batista - Last Filed: 06/23/24 22:42> [facility] Disclaimer: The information contained in this section may have been updated after the patient was seen, as this information can be updated by other users. Social History Smoking Status: Never smoker alcohol intake: never current occupational status: retired Travel in the last 8 weeks: Inside the [place] Other Medical History Have you received the Flu Vaccine for this season: Yes Have you received the Pneumonia Vaccine: Yes <JAMAICA Batista - Last Filed: 06/23/24 22:42> ROS Obtained: Yes Systems reviewed as appropriate & no additional complaints except as documented Physical Exam <JAMAICA Batista - Last Filed: 06/23/24 22:42> General General appearance: alert and in no apparent distress Respiratory Respiratory exam: Present normal lung sounds bilaterally Cardiovascular Cardiovascular exam: Present regular rate Neurological Exam Neurological exam: Present alert, oriented X3 and CN II-XII intact Medical Decision Making <JAMAICA Batista - Last Filed: 06/23/24 22:42> Medical Records Screening: Per USPSTF and CDC recommendations, given the prevalence of disease in our region, it is our hospital?s policy to screen for HIV and viral Hepatitis for all patients aged 18 and over and those with ongoing risk factors. [place] Inquiry Pt receiving controlled substance: No Vital Signs: 06/23/24 18:34 06/23/24 20:00 06/23/24 20:30 Temperature 98.5 F Temperature Source Oral Pulse Rate 71 63 Pulse Rate [Right] 77 Respiratory Rate 18 Blood Pressure 160/97 H 175/97 H Blood Pressure [Right Arm] 184/85 H Blood Pressure Mean 108 111 Blood Pressure Mean [Right Arm] 118 02 Sat by Pulse Oximetry 95 98 97 Oxygen Delivery Method Room Air 06/23/24 21:30 06/23/24 22:01 06/23/24 22:30 Temperature Temperature Source Pulse Rate 69 71 67 Pulse Rate [Right] Respiratory Rate Blood Pressure 180/94 H 181/98 H 156/92 H Blood Pressure [Right Arm] Blood Pressure Mean Blood Pressure Mean [Right Arm] 02 Sat by Pulse Oximetry 96 98 98 Oxygen Delivery Method 06/23/24 22:50 Temperature 98.2 F Temperature Source Oral Pulse Rate 72 Pulse Rate [Right] Respiratory Rate 16 Blood Pressure 156/92 H Blood Pressure [Right Arm] Blood Pressure Mean Blood Pressure Mean [Right Arm] 02 Sat by Pulse Oximetry Oxygen Delivery Method Room Air Orders (Tests/Meds): ED MEDICATIONS Discontinued Medications Generic Name Dose Route Start Last Admin Trade Name Freq PRN Reason Stop Dose Admin Acetaminophen 1,000 mg 06/23/24 19:41 06/23/24 19:47 Acetaminophen 500mg Tab PO 06/23/24 19:42 1,000 mg ONCE ONE Administration Oxycodone HCl 5 mg 06/23/24 19:41 06/23/24 19:47 Oxycodone 5mg Immediate Release Tablet PO 06/23/24 19:42 5 mg ONCE ONE Administration ORDERS Category Date Time Status CT cervical spine wo con Stat Cat Scan 06/23/24 19:[address] head/brain wo con Stat Cat Scan 06/23/24 19:39 Completed Humerus XR right [XR humerus RT] Stat Exams 06/23/24 19:39 Completed Knee XR right 3 views [XR knee RT 3V] Stat Exams 06/23/24 19:39 Completed Shoulder XR right miminum 2 views [XR shoulder RT min Exams 06/23/24 19:39 Completed 2V] Stat Medical Decision Narrative: In summary patient is a 79-year-old female who presents to the emergency department for evaluation of fall. Patient is patient is initially hypertensive at 184/85 but normal heart rate normal respiratory rate O2 sat of 95% upon arrival, afebrile. Physical exam is remarkable for swelling to the right side of her head without laceration and it does not involve her eye. No palpable bony deformity. Patient is tender to palpation at the proximal humerus without palpable bony deformity. Patient is neurovascular intact distally. Patient has full range of motion but it is tender especially with abduction and elevation. Patient has painful palpation about the entire knee with ecchymosis noted to the lateral aspect not involving the patella. Neurovascular intact distally.. Differential diagnosis includes contusion versus head injury versus C-spine injury versus humerus fracture versus fracture of the knee versus soft tissue injury of the knee etc. Initial workup will be conducted with CT scan of the head and C-spine, plain film x-rays of the humerus and knee. Initial interventions include Tylenol Toradol. Initial workup reviewed by me and my informal trepidation of her plain film and CT scan imaging shows no acute processes.. Upon repeat evaluation reports some improvement after initial intervention. Given this patient is appropriate for discharge with follow-up with orthopedic surgeon. <Vidal Hernandez MD - Last Filed: 06/24/24 15:43> Vital Signs: 06/23/24 18:34 06/23/24 20:00 06/23/24 20:30 Temperature 98.5 F Temperature Source Oral Pulse Rate 71 63 Pulse Rate [Right] 77 Respiratory Rate 18 Blood Pressure 160/97 H 175/97 H Blood Pressure [Right Arm] 184/85 H Blood Pressure Mean 108 111 Blood Pressure Mean [Right Arm] 118 02 Sat by Pulse Oximetry 95 98 97 Oxygen Delivery Method Room Air 06/23/24 21:30 06/23/24 22:01 06/23/24 22:30 Temperature Temperature Source Pulse Rate 69 71 67 Pulse Rate [Right] Respiratory Rate Blood Pressure 180/94 H 181/98 H 156/92 H Blood Pressure [Right Arm] Blood Pressure Mean Blood Pressure Mean [Right Arm] 02 Sat by Pulse Oximetry 96 98 98 Oxygen Delivery Method 06/23/24 22:50 Temperature 98.2 F Temperature Source Oral Pulse Rate 72 Pulse Rate [Right] Respiratory Rate 16 Blood Pressure 156/92 H Blood Pressure [Right Arm] Blood Pressure Mean Blood Pressure Mean [Right Arm] 02 Sat by Pulse Oximetry Oxygen Delivery Method Room Air Orders (Tests/Meds): ED MEDICATIONS Discontinued Medications Generic Name Dose Route Start Last Admin Trade Name Shanti PRN Reason Stop Dose Admin Acetaminophen 1,000 mg 06/23/24 19:41 06/23/24 19:47 Acetaminophen 500mg Tab PO 06/23/24 19:42 1,000 mg ONCE ONE Administration Oxycodone HCl 5 mg 06/23/24 19:41 06/23/24 19:47 Oxycodone 5mg Immediate Release Tablet PO 06/23/24 19:42 5 mg ONCE ONE Administration ORDERS Category Date Time Status CT cervical spine wo con Stat Cat Scan 06/23/24 19:[address] head/brain wo con Stat Cat Scan 06/23/24 19:39 Completed Humerus XR right [XR humerus RT] Stat Exams 06/23/24 19:39 Completed Knee XR right 3 views [XR knee RT 3V] Stat Exams 06/23/24 19:39 Completed Shoulder XR right miminum 2 views [XR shoulder RT min Exams 06/23/24 19:39 Completed 2V] Stat Medical Decision Narrative: In summary patient is a 79-year-old female who presents to the emergency department for evaluation of fall. Patient is patient is initially hypertensive at 184/85 but normal heart rate normal respiratory rate O2 sat of 95% upon arrival, afebrile. Physical exam is remarkable for swelling to the right side of her head without laceration and it does not involve her eye. No palpable bony deformity. Patient is tender to palpation at the proximal humerus without palpable bony deformity. Patient is neurovascular intact distally. Patient has full range of motion but it is tender especially with abduction and elevation. Patient has painful palpation about the entire knee with ecchymosis noted to the lateral aspect not involving the patella. Neurovascular intact distally.. Differential diagnosis includes contusion versus head injury versus C-spine injury versus humerus fracture versus fracture of the knee versus soft tissue injury of the knee etc. Initial workup will be conducted with CT scan of the head and C-spine, plain film x-rays of the humerus and knee. Initial interventions include Tylenol Toradol. Initial workup reviewed by me and my informal trepidation of her plain film and CT scan imaging shows no acute processes.. Upon repeat evaluation reports some improvement after initial intervention. Given this patient is appropriate for discharge with follow-up with orthopedic surgeon. I independently interviewed and examined patient. Independent interpretation of films demonstrate no acute bony fractures. CT scans of the head and cervical spine without acute intracranial abnormality or cervical spine injury. See radiology read for further evaluation. I was consulted by the RYAN, and we discussed the complexity of the problems being addressed. I approved the treatment and management plan for this patient's care in the Emergency Department, thus performing a substantive portion of the medical decision making. Vidal Hernandez MD Critical Care <JAMAICA Batista - Last Filed: 06/23/24 22:42> Critical Care Time Critical Care Time: No
--- NOTE | 2024-06-23 19:39 | XR_ITS ---
PROCEDURE INFORMATION: Exam: XR Right Shoulder Exam date and time: 06/23/2024 9:00 PM Age: 79 years old Clinical indication: Injury or trauma; Fall; Other: Pain; Additional info: Fall shoulder pain TECHNIQUE: Imaging protocol: Radiologic exam of the right shoulder. Views: 2 or more views. Total images: 3 COMPARISON: CR XR SHOULDER RT MIN 2V 06/23/2024 9:00 PM FINDINGS: Bones/joints: Osteopenia. No acute fracture, joint dislocation, or AC joint separation. Surgical anchors in the humeral head. Near complete loss of subacromial distance implying chronic rotator cuff tear. Mild degenerative arthropathy. No concerning bone lesions. Soft tissues: Unremarkable soft tissues. IMPRESSION: 1. No acute osseous abnormality. 2. Chronic findings.
--- NOTE | 2024-06-23 19:39 | CT_ITS ---
PROCEDURE INFORMATION: Exam: CT Head Without Contrast Exam date and time: 06/23/2024 9:03 PM Age: 79 years old Clinical indication: Injury or trauma; Fall; Other: Pain; Additional info: Fall facial trauma TECHNIQUE: Imaging protocol: Computed tomography of the head without contrast. Radiation optimization: All CT scans at this facility use at least one of these dose optimization techniques: automated exposure control; mA and/or kV adjustment per patient size (includes targeted exams where dose is matched to clinical indication); or iterative reconstruction. COMPARISON: CT HEAD/BRAIN WO/W CON 08/29/2022 1:44 PM FINDINGS: Brain: Normal. No hemorrhage. Unremarkable white matter. No mass effect. Cerebral ventricles: No ventriculomegaly. Paranasal sinuses: Visualized sinuses are unremarkable. No fluid levels. Mastoid air cells: Visualized mastoid air cells are well aerated. Orbital cavities: Incidentally noted bilateral lens replacement. Bones: Unremarkable. No acute fracture. Soft tissues: Unremarkable. IMPRESSION: No visible acute intracranial.
--- NOTE | 2024-06-23 19:39 | CT_ITS ---
PROCEDURE INFORMATION: Exam: CT Cervical Spine Without Contrast Exam date and time: 06/23/2024 9:05 PM Age: 79 years old Clinical indication: Injury or trauma; Fall; Other: Pain; Additional info: Fall, neck pain TECHNIQUE: Imaging protocol: Computed tomography of the cervical spine without contrast. Radiation optimization: All CT scans at this facility use at least one of these dose optimization techniques: automated exposure control; mA and/or kV adjustment per patient size (includes targeted exams where dose is matched to clinical indication); or iterative reconstruction. COMPARISON: CT HEAD/BRAIN WO CON 06/23/2024 9:03 PM FINDINGS: Bones: Decreased disc space height at the C5-C7 levels. Moderate degenerative change of the dens articulation. Grade 1 anterolisthesis C3 on C4 caused by facet hypertrophy. Lungs: Lung apices are normal. Soft tissues: Unremarkable. IMPRESSION: No visible acute fracture/malalignment.
--- NOTE | 2024-06-23 19:39 | XR_ITS ---
PROCEDURE INFORMATION: Exam: XR Right Knee Exam date and time: 06/23/2024 9:00 PM Age: 79 years old Clinical indication: Injury or trauma; Fall; Other: Pain TECHNIQUE: Imaging protocol: Radiologic exam of the right knee. Views: 3 views. Total images: 3 COMPARISON: CR [id number] XR knee RT 3V 11/22/2017 9:15 PM FINDINGS: Bones/joints: No acute fracture, joint dislocation, or joint effusion. Osteopenia. 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 No concerning bone lesions. Soft tissues: Unremarkable soft tissues. IMPRESSION: 1. No acute osseous abnormality. 2. 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
--- NOTE | 2024-06-23 19:39 | XR_ITS ---
PROCEDURE INFORMATION: Exam: XR Right Humerus Exam date and time: 06/23/2024 9:00 PM Age: 79 years old Clinical indication: Injury or trauma; Fall; Other: Pain; Additional info: Fall right upper arm pain TECHNIQUE: Imaging protocol: Radiologic exam of the right humerus. Views: 2 or more views. Total images: 2 COMPARISON: CR XR HUMERUS RT 06/23/2024 9:00 PM FINDINGS: Bones/joints: Osteopenia. Shoulder findings described separately. No acute fracture or joint dislocation. No concerning bone lesions. Benign cortical thickening/tug lesion at the deltoid insertion on the humeral shaft. Soft tissues: Unremarkable soft tissues. IMPRESSION: Negative right humerus.
[2024-06-23] MEDS: ACETAMINOPHEN 500MG TAB 1000 MG PO (19:47)
[2024-06-23] MEDS: OXYCODONE 5MG IMMEDIATE RELEASE TABLET 5 MG PO (19:47)
== END 2024-06-23 22:58 | disposition home or self-care (01) ==
PROVIDERS: Emergency Provider Emergency Medicine; PCP Family Medicine
DX: S80.01XA Contusion of right knee, initial encounter (principal); M79.621 Pain in right upper arm; M25.561 Pain in right knee; M54.2 Cervicalgia; W01.0XXA Fall on same level from slipping, tripping and stumbling without subsequent striking against object, initial encounter; Y93.89 Activity, other specified; Y92.009 Unspecified place in unspecified non-institutional (private) residence as the place of occurrence of the external cause
CPT/HCPCS: 70450; 72125; 73030; 73060; 73562; 99284

== ENCOUNTER 2024-07-16 14:31 | Outpatient (CLI) | payer MEDICARE, SELFPAY ==
--- NOTE | 2024-07-16 14:38 | XR_ITS ---
FINAL REPORT CLINICAL HISTORY: dog bite x 3 days ago COMPARISON: None FINDINGS: LEFT HAND: 3 views of the left hand were obtained. There is no acute fracture or dislocation. There are severe degenerative changes of the first carpometacarpal joint. Mild degenerative changes are noted elsewhere. Soft tissues are unremarkable. No radiopaque foreign body is identified. IMPRESSION: No radiopaque foreign body identified. Degenerative changes without acute process. Reviewed, Interpreted and Dictated by Jarrell Bardales III, MD Transcribed by Tegan Soriano Authenticated and [facility]
== END 2024-07-16 23:59 | disposition home or self-care (01) ==
LOC: RAD 14:33
PROVIDERS: PCP Family Medicine; Visit Provider Family Medicine
DX: M79.642 Pain in left hand (principal); W54.0XXA Bitten by dog, initial encounter
CPT/HCPCS: 73130

== ENCOUNTER 2024-09-28 11:24 | Outpatient (CLI) | payer MEDICARE, SELFPAY ==
[2024-09-28 13:04] LABS: Chloride 101 mmol/L (98-107); Potassium 3.9 mmoL/L (3.5-5.1); Sodium 140 mmol/L (136-145)
[2024-09-28 13:07] LABS: Anion Gap 13.9 mEq/L (5-15); Blood Urea Nitrogen 18 mg/dl (7-17); Calcium 9.6 mg/dl (8.4-10.2); Carbon Dioxide 29 mmol/L (22.0-30.0); Estimated Glomerular Filt Rate 70 ml/min (>60); GFR (African American) 84 ML/MIN (>60); Glucose 94 mg/dl (74-100); Magnesium 1.7 mg/dl (1.6-2.3)
== END 2024-09-28 23:59 | disposition home or self-care (01) ==
LOC: LAB 11:26
PROVIDERS: PCP Family Medicine; Visit Provider Family Medicine
DX: G62.9 Polyneuropathy, unspecified (principal); I10 Essential (primary) hypertension
CPT/HCPCS: 36415; 80048; 83735; 84100

== ENCOUNTER 2024-10-23 20:36 | Emergency (ER) | payer MEDICARE, SELFPAY ==
[2024-10-23 20:43] VITALS: BP 170/106; PULSE 87; RESP 18; TEMP 36.6; O2SAT 100; BMI 30.2
[2024-10-23 20:54] VITALS: PULSE 89; O2SAT 97
--- NOTE | 2024-10-23 21:11 | CT_ITS ---
PROCEDURE INFORMATION: Exam: CT Head Without Contrast Exam date and time: 10/23/2024 9:38 PM Age: 79 years old Clinical indication: Other: Severe COLLIER and neck pain x 3 days TECHNIQUE: Imaging protocol: Computed tomography of the head without contrast. Radiation optimization: All CT scans at this facility use at least one of these dose optimization techniques: automated exposure control; mA and/or kV adjustment per patient size (includes targeted exams where dose is matched to clinical indication); or iterative reconstruction. COMPARISON: CT HEAD/BRAIN WO CON 06/23/2024 9:03 PM FINDINGS: Brain: Moderate brain volume loss and moderate chronic ischemic changes. No mass, hemorrhage or acute infarct. Cerebral ventricles: No ventriculomegaly. Paranasal sinuses: Visualized sinuses are unremarkable. No fluid levels. Mastoid air cells: Visualized mastoid air cells are well aerated. Bones: Unremarkable. No acute fracture. Soft tissues: Unremarkable. IMPRESSION: No acute intracranial findings.
--- NOTE | 2024-10-23 21:11 | CT_ITS ---
PROCEDURE INFORMATION: Exam: CTA Neck With Contrast Exam date and time: 10/23/2024 9:40 PM Age: 79 years old Clinical indication: Other: Severe COLLIER and neck pain x 3 days TECHNIQUE: Imaging protocol: Computed tomographic angiography of the neck with contrast. Exam focused on the cervical segments of the vasculature. 3D rendering (Not supervised by radiologist): MIP and/or 3D reconstructed images were created by the technologist. Radiation optimization: All CT scans at this facility use at least one of these dose optimization techniques: automated exposure control; mA and/or kV adjustment per patient size (includes targeted exams where dose is matched to clinical indication); or iterative reconstruction. Contrast material: ISO 370; Contrast volume: 80 ml; Contrast route: INTRAVENOUS (IV); COMPARISON: CT CERVICAL SPINE WO CON 06/23/2024 9:05 PM FINDINGS: Right common carotid artery: Mild atherosclerotic changes of the right carotid bulb. Right internal carotid artery: Partial retropharyngeal course of the right ICA. Right external carotid artery: No occlusion or stenosis of the origin. Left common carotid artery: No stenosis. No dissection or occlusion. Left internal carotid artery: No stenosis of the extracranial segment. No dissection or occlusion. Left external carotid artery: No occlusion or stenosis of the origin. Right vertebral artery: Subtle lobulations of the right vertebral artery proximal V2 segment. Left vertebral artery: Lobulated appearance of the proximal left vertebral artery, V1 segment, however without significant stenosis. Slightly lobulated appearance of portions of the V2 segment of the left vertebral artery. Aorta: Mild atherosclerosis of the aortic arch. Lymph nodes: Calcified mediastinal nodes. Soft tissues: Normal. No significant soft tissue swelling. Bones/joints: Degenerative changes of the spine. IMPRESSION: No acute findings. Atherosclerotic disease without significant stenosis. Vascular morphologic changes suggesting vasculitis/FMD. REFERENCES: NASCET CRITERIA. The degree of stenosis in the cervical segment of the internal carotid artery is based on NASCET criteria. Normal is no stenosis. Mild is less than 50% stenosis. Moderate is 50-69% stenosis. Severe is 70% to 99% stenosis. Total occlusion is no detectable patent lumen.
--- NOTE | 2024-10-23 21:11 | CT_ITS ---
PROCEDURE INFORMATION: Exam: CTA Head With Contrast, Arteriography Exam date and time: 10/23/2024 9:40 PM Age: 79 years old Clinical indication: Headache; Additional info: Severe COLLIER and neck pain x 3 days TECHNIQUE: Imaging protocol: Computed tomographic angiography of the head with contrast. Exam focused on the arteries. 3D rendering (Not supervised by radiologist): MIP and/or 3D reconstructed images were created by the technologist. Radiation optimization: All CT scans at this facility use at least one of these dose optimization techniques: automated exposure control; mA and/or kV adjustment per patient size (includes targeted exams where dose is matched to clinical indication); or iterative reconstruction. Contrast material: ISOVUE; Contrast volume: 80 ml; Contrast route: INTRAVENOUS (IV); COMPARISON: CT HEAD/BRAIN WO CON 10/23/2024 9:38 PM FINDINGS: ANTERIOR CIRCULATION: Right internal carotid artery: Mild atherosclerotic changes of the right cavernous carotid artery. Right middle cerebral artery: No occlusion or significant stenosis. No aneurysm. Right anterior cerebral artery: No occlusion or significant stenosis. No aneurysm. Left internal carotid artery: Mild atherosclerotic changes of the left cavernous carotid artery. Left middle cerebral artery: No occlusion or significant stenosis. No aneurysm. Left anterior cerebral artery: No occlusion or significant stenosis. No aneurysm. POSTERIOR CIRCULATION: Right vertebral artery: No occlusion or significant stenosis. No aneurysm. Left vertebral artery: No occlusion or significant stenosis. No aneurysm. Basilar artery: No occlusion or significant stenosis. No aneurysm. Right posterior cerebral artery: No occlusion or significant stenosis. No aneurysm. Left posterior cerebral artery: No occlusion or significant stenosis. No aneurysm. Veins: Dural venous sinuses are intact. Brain: No definite mass, mass effect, or midline shift. Cerebral ventricles: No ventriculomegaly. Bones/joints: Unremarkable. No acute fracture. Soft tissues: Unremarkable. IMPRESSION: No acute findings.
--- NOTE | 2024-10-23 21:14 | ED_ITS ---
Discharge Plan Disposition Chief Complaint: Headache Prescriptions Prescriptions: No Action celecoxib 200 MG capsule 200 mg PO DAILY cyclobenzaprine 10 MG tablet 10 mg PO TIDP PRN (Reason: Anxiety) buspirone 5 MG tablet 5 mg PO BID meloxicam 15 MG tablet 15 mg PO DAILY valacyclovir 500 MG tablet 500 mg PO BID Patient Comments: TK 1 T PO BID misoprostol 200 MCG tablet 200 mcg PO HS ezetimibe 10 MG tablet 10 mg PO DAILY ondansetron 4 MG tablet,disintegrating 4 mg PO TID PRN (Reason: Nausea) 4 Days Qty: 15 0RF Referrals Follow up/Referrals: Leo Dennis MD [Primary Care Provider] - See instructions Activity Restrictions/Add. Instructions Additional Instructions/Restrictions: No emergent medical condition identified today. Of note there was questionable fibromuscular dysplasia on the CAT scan involving the blood vessels of your head and neck. No evidence of any endorgan damage such as a stroke bleeding or dissection. Please follow-up closely with your primary care doctor to discuss chronic management of your high blood pressure. Return to the significant worsening of your symptoms. Clinical Impressions Clinical Impression: Headache, Hypertension, Fibromuscular dysplasia Print Language Print Language: Yoruba Discharge ED Provider: Hai Partida General Adult HPI General Chief complaint: Headache Stated complaint: sent by michele- NANDO vomiting Time Seen by Provider: 10/23/24 21:02 Mode of Arrival: Wheelchair Source of Information: Patient Limitations: No Limitations Description of Symptoms (Recalled from ER Triage Doc. by RN): Pt presents with c/o headache that started 3 days ago. Pt was seen by cristobal today, and was given toradol and phenergan. Pt had last thrown up at 3:30pm. Pt had a covid/flu swab done at the office and it was negative History of Present Illness HPI narrative: Patient is a 79-year-old female presenting today with severe head and neck pain for the last 3 days. Slowly worsening no sudden onset to this no fevers or chills or meningismus does have photophobia but this is normal for her headaches in the past. She does have a history of migraines but is out of proportion to what she has had in the past. No neurologic complaints from historical standpoint. She went to Dr. Lyn's office earlier today was given Toradol and Phenergan with some mild improvement but symptoms only worsened since that time. Related Data Home Medications ?Medication ?Instructions ?Recorded ?Confirmed buspirone 5 mg tablet 5 mg PO BID Anxiety 07/16/20 10/23/24 celecoxib 200 mg capsule 200 mg PO DAILY Pain 07/16/20 10/23/24 cyclobenzaprine 10 mg tablet 10 mg PO TIDP PRN Anxiety 07/16/20 10/23/24 ezetimibe 10 mg tablet 10 mg PO DAILY Cholesterol 07/16/20 10/23/24 meloxicam 15 mg tablet 15 mg PO DAILY bowel 07/16/20 10/23/24 misoprostol 200 mcg tablet 200 mcg PO HS Supplement 07/16/20 10/23/24 valacyclovir 500 mg tablet 500 mg PO BID . 07/16/20 10/23/24 Previous Rx's ?Medication ?Instructions ?Recorded ondansetron 4 mg disintegrating 4 mg PO TID PRN Nausea 4 days ##15 07/16/20 tablet Allergies Allergy/AdvReac Type Severity Reaction Status Date / Time aspirin AdvReac Unknown Verified 06/23/24 19:42 allergy reaction [id number] Reductase AdvReac Unknown Verified 06/23/24 19:42 Inhibitor allergy reaction PFSH PFS Disclaimer: The information contained in this section may have been updated after the patient was seen, as this information can be updated by other users. Social History Smoking Status: Never smoker alcohol intake: never current occupational status: retired Travel in the last 8 weeks: Inside the [place] Have you lived/traveled outside [place] in past 30 days?: No Contact w/someone who lives/traveled outside [place] past 30 days?: No Exposure to someone with infectious disease in past 14 days?: No Do you have a fever (greater than 100.4 F or 38 C)?: No Have you tested positive for COVID-19: No Exposed to someone with COVID-19 in past 14 days?: No Do you have a sore throat?: No Do you have a cough?: No Do you have any weakness?: No Do you have any diarrhea?: No Are you experiencing any unusual bleeding?: No Do you have any muscle aches/pain?: No Do you have any abdominal pain?: No Are you experiencing loss of taste or smell?: No Other Medical History Have you received the Flu Vaccine for this season: Yes Have you received the Pneumonia Vaccine: Yes ROS Obtained: Yes All systems reviewed & no additional complaints except as documented Physical Exam General General appearance: alert, in no apparent distress and other (Cough over her eyes is the lights are bothering her went into the room) Neck Neck exam: Present full ROM; Absent meningismus Respiratory Respiratory exam: Present normal lung sounds bilaterally Cardiovascular Cardiovascular exam: Present regular rate and normal rhythm Neurological Exam Neurological exam: Present alert, oriented X3, CN II-XII intact and normal gait; Absent motor sensory deficit Medical Decision Making Medical Records Screening: Per USPSTF and CDC recommendations, given the prevalence of disease in our region, it is our hospital?s policy to screen for HIV and viral Hepatitis for all patients aged 18 and over and those with ongoing risk factors. [place] Inquiry Pt receiving controlled substance: No Vital Signs: 10/23/24 20:43 10/23/24 20:54 10/23/24 21:55 Temperature 97.9 F Temperature Source Oral Pulse Rate 89 77 Pulse Rate [Right] 87 Respiratory Rate 18 Blood Pressure 176/91 H Blood Pressure [Right Arm] 170/106 H Blood Pressure Mean [Right Arm] 127 Blood Pressure Source [Right Arm] Automatic Cuff Blood Pressure Position [Right Arm] Sitting 02 Sat by Pulse Oximetry 100 97 95 Oxygen Delivery Method Room Air 10/23/24 22:00 Temperature Temperature Source Pulse Rate 76 Pulse Rate [Right] Respiratory Rate Blood Pressure 158/96 H Blood Pressure [Right Arm] Blood Pressure Mean [Right Arm] Blood Pressure Source [Right Arm] Blood Pressure Position [Right Arm] 02 Sat by Pulse Oximetry 95 Oxygen Delivery Method Lab Data Lab results reviewed: Yes I reviewed the patient's lab results. Lab Results 10/23/24 21:00: WBC 8.1, RBC 5.07, Hgb 13.5, Hct 41.5, MCV 81.9, MCH 26.6 L, MCHC 32.5, RDW 17.7 H, Plt Count 305, MPV 9.8, Neut % (Auto) 74.9, Lymph % (Auto) 18.9, [place] % (Auto) 5.3, Eos % (Auto) 0.2, Baso % (Auto) 0.5, Neut # (Auto) 6.1, Lymph # (Auto) 1.5, [place] # (Auto) 0.4, Eos # (Auto) 0.0, Baso # (Auto) 0.0, ESR 1, Sodium 133 L, Potassium 3.3 L, Chloride 98, Carbon Dioxide 27, Anion Gap 11.3, BUN 14, Creatinine 0.80, Estimated Creat Clear 59, Estimated GFR 70, Est GFR ( Amer) 84, Glucose 102 H, Calcium 9.3, Total Bilirubin 0.7, AST 34, ALT 31, Alkaline Phosphatase 92, C-Reactive Protein 3.8, Total Protein 7.1, Albumin 4.2, Globulin 2.9, Albumin/Globulin Ratio 1.4 10/23/24 21:00 10/23/24 21:00 Orders (Tests/Meds): ED MEDICATIONS Discontinued Medications Generic Name Dose Route Start Last Admin Trade Name Freq PRN Reason Stop Dose Admin Acetaminophen 1,000 mg 10/23/24 21:11 10/23/24 21:20 Acetaminophen 1,000mg/100ml Vial IV 10/23/24 21:12 1,000 mg ONCE ONE Administration Diphenhydramine HCl 12.5 mg 10/23/24 21:11 10/23/24 21:20 Diphenhydramine 50mg/Ml Vial IV 10/23/24 21:12 12.5 mg ONCE ONE Administration Sodium Chloride 1,000 mls @ 999 mls/hr 10/23/24 21:15 10/23/24 21:19 Sod Chlor 0.9% 1000ml Bag IV 10/23/24 22:15 999 mls/hr .Q1H1M JEREMIAS Administration Iopamidol 80 ml 10/23/24 21:37 10/23/24 21:39 Iopamidol-370 (76%);100ml Bottle IV 10/23/24 21:38 80 ml ONCE ONE Administration Prochlorperazine Edisylate 5 mg 10/23/24 21:11 10/23/24 21:19 Prochlorperazine 10mg/2ml Vial IV 10/23/24 21:12 5 mg ONCE ONE Administration Sodium Chloride 50 ml 10/23/24 21:37 10/23/24 21:39 0.9 % Sodium Chloride 50 Ml Vial IV 10/23/24 21:38 50 ml ONCE ONE Administration Sodium Chloride 10 ml 10/23/24 21:37 10/23/24 21:39 Sodium Chloride 0.9% 10ml Syr (Rad Only) IV 10/23/24 21:38 10 ml ONCE ONE Administration ORDERS Category Date Time Status CT angio head Stat Cat Scan 10/23/24 21:[address] angio neck Stat Cat Scan 10/23/24 21:[address] head/brain wo con Stat Cat Scan 10/23/24 21:11 Taken CBC w/Auto Diff [Complete Blood Count Auto Diff] Stat Lab 10/23/24 21:00 Completed CMP [Comprehensive Metabolic Panel] Stat Lab 10/23/24 21:00 Completed CRP [C-Reactive Protein] Stat Lab 10/23/24 21:00 Completed ESR [Erythrocyte Sedimentation Rate] Stat Lab 10/23/24 21:00 Completed Medical Decision Narrative: 79-year-old with above history and physical given her age and severity of her symptoms with a CT angio of her head neck and noncontrasted CT scan of her head to rule out any significant hemorrhage or dissection. Unlikely to be a space- occupying lesion as she has a normal neurologic exam at the moment. Possible that this is just a severe migraine. She had a COVID and flu test that were negative earlier today Dr. Dennis's office for viral etiologies are certainly on the differential. Will give her Tylenol Compazine Benadryl IV fluids and reassess. Reassessment 1113 serial neurologic exams normal patient feeling significantly better after her therapeutic interventions. CT scan of the patient's head noncontrasted and CT angiography of her head and neck were performed which I personally interpreted which shows no evidence of any acute pathology per my interpretation. Radiology read was concerning for possible vasculitis versus fibromuscular dysplasia inflammatory markers were added on which were completely unremarkable suggesting vasculitis versus very unlikely. Patient has no endorgan damage regarding the fibromuscular dysplasia this will likely be supportive care and outpatient management. She is aware this will follow-up with primary care doctor regarding this have advised that she take a daily aspirin in the meantime. No further emergent interventions needed patient was discharged in improved and stable condition. Regarding her blood pressure she is near goal at 150/90 for her age she has been advised to follow monitor blood pressure guidelines as discussed and to follow-up with her primary care doctor regarding this. Critical Care Critical Care Time Critical Care Time: No
[2024-10-23 21:17] LABS: Basophils % 0.5 % (0.1-2.0); Eosinophils % 0.2 % (0.1-12.0); Hematocrit 41.5 % (37.0-47.0); Hemoglobin 13.5 g/dL (12.2-16.2); Lymphocytes # 1.5 K/mm3 (0.7-4.5); Lymphocytes % 18.9 % (10-50); Mean Corpuscular HGB Conc 32.5 g/dL (31.8-35.4); Mean Corpuscular Hemoglobin 26.6 pg (27.0-31.2); Mean Corpuscular Volume 81.9 fl (81-99); Mean Platelet Volume 9.8 fl (7.4-10.4); Monocytes # 0.4 K/mm3 (0.1-1.0); Monocytes % 5.3 % (1.7-9.3); Neutrophils # 6.1 K/mm3 (1.8-7.8); Neutrophils % 74.9 % (37.0-80.0); Platelet Count 305 K/mm3 (142-424); Red Blood Count 5.07 M/mm3 (4.20-5.40); Red Cell Distribution Width 17.7 % (11.5-17.5); White Blood Count 8.1 K/mm3 (4.8-10.8)
[2024-10-23 21:18] LABS: Chloride 98 mmol/L (98-107)
[2024-10-23 21:19] LABS: Albumin Level 4.2 g/dl (3.5-5.0); Potassium 3.3 mmoL/L (3.5-5.1); Sodium 133 mmol/L (136-145)
[2024-10-23] MEDS: 0.9 % SODIUM CHLORIDE 1000ML 1,000 ML 999 ML IV (21:19)
[2024-10-23] MEDS: PROCHLORPERAZINE 10MG/2ML VIAL 5 MG IV (21:19)
[2024-10-23] MEDS: ACETAMINOPHEN 1,000MG/100ML VIAL 1000 MG IV (21:20)
[2024-10-23] MEDS: diphenhydrAMINE 50MG/ML VIAL 12.5 MG IV (21:20)
[2024-10-23 21:21] LABS: Alanine Aminotransferase 31 U/L (12-78); Alkaline Phosphatase 92 U/L (38-126); Anion Gap 11.3 mEq/L (5-15); Aspartate Amino Transferase 34 U/L (14-36); Bilirubin,Total 0.7 mg/dl (0.2-1.3); Blood Urea Nitrogen 14 mg/dl (7-17); Carbon Dioxide 27 mmol/L (22.0-30.0); Creatinine Clearance Estimated 59 mL/min (50-200); Estimated Glomerular Filt Rate 70 ml/min (>60); GFR (African American) 84 ML/MIN (>60)
[2024-10-23 21:22] LABS: Albumin/Globulin Ratio 1.4 (1.1-1.8); Calcium 9.3 mg/dl (8.4-10.2); Globulin 2.9 g/dL (1.3-3.2); Glucose 102 mg/dl (74-100); Total Protein,Serum 7.1 g/dl (6.3-8.2)
--- NOTE | 2024-10-23 21:30 | PC.NURSE ---
patient going to CT
[2024-10-23] MEDS: 0.9 % SODIUM CHLORIDE 50 ML VIAL IV (21:39)
[2024-10-23] MEDS: IOPAMIDOL-370 (76%);100ML BOTTLE 80 ML IV (21:39)
[2024-10-23] MEDS: SODIUM CHLORIDE 0.9% 10ML SYR (RAD ONLY) 10 ML IV (21:39)
--- NOTE | 2024-10-23 21:45 | PC.NURSE ---
Pt back from CT scan
[2024-10-23 21:55] VITALS: BP 176/91; PULSE 77; O2SAT 95
[2024-10-23 22:00] VITALS: BP 158/96; PULSE 76; O2SAT 95
[2024-10-23 22:55] LABS: C-Reactive Protein 3.8 mg/L (0-4)
[2024-10-23 22:58] LABS: Erythrocyte Sedimentation Rate 1 mm/hr (0-30)
[2024-10-23 23:13] VITALS: BP 159/89; PULSE 83; RESP 20; TEMP 36.8; O2SAT 95
[2024-10-23 23:16] VITALS: BP 159/89; PULSE 88; RESP 16; TEMP 36.6; O2SAT 94
--- NOTE | 2024-10-23 23:18 | PC.NURSE ---
IV removed. Catheter tip intact. Bleeding controlled.
== END 2024-10-23 23:26 | disposition home or self-care (01) ==
LOC: ER 20:50
PROVIDERS: Emergency Provider Student in an Organized Health Care Education/Training Program; PCP Family Medicine
DX: I77.3 Arterial fibromuscular dysplasia (principal); I10 Essential (primary) hypertension; R51.9 Headache, unspecified; R11.10 Vomiting, unspecified; M54.2 Cervicalgia
CPT/HCPCS: 70450; 70496; 70498; 80053; 85025; 85651; 86140; 96361; 96374; 96375; 99285; J0131; J0780; J1200; J7030; Q9967

== ENCOUNTER 2024-11-10 13:04 | Outpatient (CLI) | payer MEDICARE, SELFPAY ==
--- NOTE | 2024-11-10 13:09 | XR_ITS ---
FINAL REPORT CLINICAL HISTORY: Pain and swelling in left hand. COMPARISON: 07/16/2024 FINDINGS: LEFT HAND Three views were obtained. There is no fracture or dislocation. 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 The bones are osteopenic. No soft tissue abnormality is identified. IMPRESSION: No acute bony abnormality. Reviewed, Interpreted and Dictated by Mendoza Workman MD Transcribed by Domi Gurrola Authenticated and [facility]
== END 2024-11-10 23:59 | disposition home or self-care (01) ==
LOC: RAD 13:06
PROVIDERS: PCP Nurse Practitioner Family; Visit Provider Nurse Practitioner Family
DX: M79.642 Pain in left hand (principal)
CPT/HCPCS: 73130

== ENCOUNTER 2024-12-08 13:40 | Outpatient (CLI) | payer MEDICARE, SELFPAY ==
--- NOTE | 2024-12-08 13:46 | MM_ITS ---
PROCEDURE INFORMATION: Exam: MG Bilateral Screening 3D Mammography Exam date and time: 12/08/2024 1:47 PM Age: 79 years old Clinical indication: Screening examination TECHNIQUE: Imaging protocol: Bilateral Screening tomosynthesis and 2D mammography including computer-aided detection (CAD) when performed. COMPARISON: 1. MG MM DIG SCREENING MAMM BI W/CAD 10/16/2023 12:51 PM 2. MG MM DIG SCREENING MAMM BI W/CAD 09/27/2022 4:04 PM FINDINGS: MAMMOGRAPHY: Breast composition: There are scattered areas of fibroglandular density. Mass: No suspicious masses. Architectural distortion: None. Calcifications: No suspicious calcifications. Asymmetric density: None. Skin thickening: None. Axillary adenopathy: None. IMPRESSION: No mammographic evidence of malignancy. Annual screening is recommended unless otherwise clinically indicated. ASSESSMENT: BI-RADS Category 1: Negative.
== END 2024-12-08 23:59 | disposition home or self-care (01) ==
LOC: RAD 13:41
PROVIDERS: PCP Nurse Practitioner Family; Visit Provider Family Medicine
DX: Z12.31 Encounter for screening mammogram for malignant neoplasm of breast (principal)
CPT/HCPCS: 77063; 77067

== ENCOUNTER 2025-04-12 13:02 | Outpatient (CLI) | payer MEDICARE, SELFPAY ==
--- OUTSIDE RECORDS SUMMARY | 2025-04-05 12:16 | XMS_ITS | Encounter Summary ---
Author Organization [employer] ([place], [place], [place], [place]) Address [address] [place] [address] Care Team Providers Care Restoration Technician Name Role Phone Leo Dennis MD Primary Care Provider [phone] Reason for Referral * Ultrasound (Routine) - Closed Specialty Diagnoses / Procedures Referred By Meghan rowley Referred To Contact Cardiology Diagnoses Varicose veins of bilateral lower extremities with pain Procedures US VENOUS REFLUX STUDY BILATERAL Daniele Phipps MD [address] [place] [address] Phone: tel: fax: [facility] [address] [place] [address] Phone: tel: Referral ID Status Reason Start Date Expiration Date Visits Re quested Visits Authorized [id number] Closed 03/04/2025 03/04/2026 1 1 Reason for Visit * Ultrasound (Routine) - Closed Specialty Diagnoses / Procedures Referred By Meghan rowley Referred To Contact Cardiology Diagnoses Varicose veins of bilateral lower extremities with pain Procedures US VENOUS REFLUX STUDY BILATERAL Daniele Phipps MD [address] [place] [address] Phone: tel: fax: [facility] [address] [place] [address] Phone: tel: Referral ID Status Reason Start Date Expiration Date Visits Re quested Visits Authorized [id number] Closed 03/04/2025 03/04/2026 1 1 Encounter Details Date Type Department Care Team (Latest Contact Info) Description 04/05/2025 12:16 PM EDT - 04/05/2025 11:59 PM EDT Hospital Encounter [facility] ([place], [place]) Non-Invasive Cardiology [address] [place] [address] Daniele Phipps MD [address] [place], [place] [id number] Varicose veins of bilateral lower extremities with pain Discharge Disposition: Home or Self Care Social History Tobacco Use Types Packs/Day Years Used Date Smoking Tobacco: Former Cigarettes Q uit: 1972 Passive Smoke Exposure: Past Smokeless Tobacco: Never Alcohol Use Standard Drinks/Week Comments Not Asked 0 (1 standard drink = 0.6 oz pur e alcohol) occasional glass of wine Utilities Answer Date Recorded In the past 12 months, has t he electric, gas, oil, or water company threatened to shut off services in your home? No 01/20/2024 Food Insecurity Answer Date Recorded Within the past 12 months, y ou worried that your food would run out before you got money to buy more. Never true 01/20/2024 Within the past 12 months, t he food you bought just didn't last and you didn't have money to get more. Never true 01/20/2024 Transportation Needs Answer Date Record ed In the past 12 months, has l ack of reliable transportation kept you from medical appointments, meetings, work or from getting things needed for daily living? No 01/20/2024 Financial Resource Strain Answer Date R ecorded How hard is it for you to pa y for the very basics like food, housing, medical care, and heating? Would you say it is: Not hard at all 01/20/2024 Employment Answer Date Recorded Do you want help finding or keeping work or a job? I do not need or want help 01/20/2024 Family and Community Support Answer Rusty e Recorded If for any reason you need h elp with day-to-day activities such as bathing, preparing meals, shopping, managing finances, etc., do you get the help you need? I don't need any help 01/20/2024 Feeling Lonely or Isolated 0 01/19 Educational Attainment Answer Date Neville rded Do you speak a language other than [place] at [facility]? No 01/20/2024 Do you want help with school or training? For example, starting or completing job training or getting a high school diploma, GED or equivalent. No 01/20/2024 Physical Activity Answer Date Recorded Number of minutes of exercise per week 0 01/20/2024 Substance Use Answer Date Recorded How many times in the past y ear have you used prescription drugs for non-medical reasons? Never 01/20/2024 Used illegal drugs past 12 months Not on file 01/20/2024 Comments No Sex and Gender Information Value Date Recorded Sex Assigned at Female 2022 8:47 PM CDT Legal Sex Female 8:47 PM CDT Gender Identity Female 2022 8:47 PM CDT Sexual Orientation Not on file documented as of this encounter Medications at Time of Discharge busPIRone (BUSPAR) 5 MG tablet Take 1 tablet (5 mg total) by mouth 2 (two) times daily as needed (for Anxiety). 10/15/2023 butalbital-acetami nophen-caffeine (FIORICET, ESGIC) 50-325-40 mg per tablet Take 1 tablet by mouth daily as needed for Headaches. 10/31/2022 DULoxetine (CYMBALTA) 60 MG capsule Take 1 capsule (60 mg total) by mouth daily. esomeprazole (NexIUM) 40 MG capsule Take 1 capsule (40 mg total) by mouth daily. fenofibrate (TRICOR) 145 MG tablet Take 1 tablet (145 mg total) by mouth daily. fluticasone propionate (FLONASE) 50 mcg/actuation nasal spray 2 sprays by Nasal route daily as needed for Rhinitis. 11/28/2023 hydroCHLOROthiazid e (HYDRODIURIL) 12.5 MG tablet Take 1 tablet (12.5 mg total) by mouth daily. 10/15/2023 Lactobacillus acidophilus Cap Take 1 capsule by mouth daily. lisinopriL (PRINIVIL,ZESTRIL) 10 MG tablet Take 1 tablet (10 mg total) by mouth daily. 12/02/2023 ondansetron (ZOFRAN) 4 MG tablet Take 1 tablet (4 mg total) by mouth 4 (four) times daily as needed for Nausea for up to 60 doses. 30 tablet 01/21/2024 documented as of this encounter Plan of Treatment Not on file documented as of this encounter Procedures Procedure Name Priority Date/Time Associated Diagnosis Comments US VENOUS REFLUX STUDY BILATERAL Routine 04/05/2025 2:16 PM EDT Varicose veins of bilateral lower extremities with pain documented in this encounter Results * US VENOUS REFLUX STUDY BILATERAL (04/05/2025 2:16 PM EDT) Anatomical Region Laterality Modality Lower Extremity Vascular Ultraso und 04/05/2025 1:06 PM EDT Narrative 04/06/2025 8:01 AM EDT Vascular Lower Extremities Venous Insufficiency Procedure Demographics Patient Name DIVINE Boone Age 80 Patient Number [id number] Gender Female Race Unknown Ethnicity Corporate ID [id number] Height 63 Date of 1945 Weight 178 Accession Number [id number] BSA 1.84 m^2 Room Number BMI 31.53 kg/m^2 Referring GADIEL TRAORE Interpreting JULIAN BECERRA MD Physician Physician [employer] Columba Leroy, MITA Procedure Type of Study: Veins: Venous Duplex, Venous Duplex Legs, Lower Extremities Venous Insufficiency, US VENOUS REFLUX STUDY BILATERAL. Impressions Summary ########################################## INDICATION: Localized edema (R60.0) Study was performed with patient in steep reverse Trendelenburg . RIGHT: No evidence of deep or superficial venous thrombosis. No evidence of reflux in the deep system. A small Melendrez's cyst is noted measuring 1.03cm x 1.03cm. No reflux noted in the saphenofemoral junction. Venous reflux 4.02 secs in duration noted in the proximal GSV (diameter 0.31 cm). This segment is < 5 cm in length . There are additional segments of reflux lasting 1.80 secs in the proximal GSV at knee ( 0.17 cm), and 2.02 secs in the mid GSV at knee ( 0.13 cm). No reflux is noted in the SSV. The saphenopopliteal junction was not clearly visualized. Views of the proximal SSV obtained, and no reflux was seen. No evidence of perforators. VCSS score: 4. CEAP: C3 , Ep , As , Pr LEFT: No evidence of deep or superficial venous thrombosis. No evidence of reflux in the deep system. A small Melendrez's cyst is noted measuring 1.73cm x 1.12cm. Reflux lasting 3.68 secs in duration is noted at the saphenofemoral junction (diameter 0.66 cm). Reflux lasting 2.65 secs in duration is noted in the proximal GSV ( 0.35 cm). No reflux noted in the SSV. The saphenopopliteal junction was not clearly visualized. Views of the proximal SSV obtained, and no reflux was seen. A non-refluxing AASV is noted. There is no evidence of perforators. VCSS score: 4. CEAP: C3 , Ep , As , Pr Patient Status:Outpatient. Study Location:Vascular Lab. Technical Quality:Technically difficult study due to patient's body habitus. Velocities are measured in cm/s ; Diameters are measured in cm Right Doppler Measurements + + +------+ + !Location !Signal !Reflux!Reflux (sec) ! + + +------+ + !GSV Thigh !Spontaneous Phasic ! ! ! + + +------+ + !Common Femoral !Spontaneous Phasic ! ! ! + + +------+ + !Popliteal !Spontaneous Phasic ! ! ! + + +------+ + Left Doppler Measurements + + +------+ + !Location !Signal !Reflux!Reflux (sec) ! + + +------+ + !GSV Thigh !Spontaneous Phasic ! ! ! + + +------+ + !Common Femoral !Spontaneous Phasic ! ! ! + + +------+ + !Popliteal !Spontaneous Phasic ! ! ! + + +------+ + Right Mapping + + + + !Location !AP Diam !Trans Diam ! + + + + !Prox GSV !0.72 ! ! + + + + !GSV 2 cm Distal to Junction !0.31 ! ! + + + + !GSV Above Knee !0.29 ! ! + + + + !GSV Calf !0.13 ! ! + + + + !SSV !0.13 ! ! + + + + Left Mapping + + + + !Location !AP Diam !Trans Diam ! + + + + !Prox GSV !0.66 ! ! + + + + !GSV 2 cm Distal to Junction !0.35 ! ! + + + + !GSV Above Knee !0.27 ! ! + + + + !GSV Calf !0.21 ! ! + + + + !SSV !0.11 ! ! + + + + Findings Right Findings No evidence of deep or superficial venous thrombosis. Left Findings No evidence of deep or superficial venous thrombosis. Signature Procedure Note Julian Becerra MD - 04/06/2025 Vascular Lower Extremities Venous Insufficiency Procedure Demographics Patient Name DIVINE Boone Age 80 Patient Number [id number] Gender Female Race Unknown Ethnicity Corporate ID [id number] Height 63 Date of 1945 Weight 178 Accession Number [id number] BSA 1.84 m^2 Room Number BMI 31.53 kg/m^2 Referring GADIEL TRAORE Interpreting JULIAN VILLANUEVA Physician Physician [employer] MITA Crsos Procedure Type of Study: Veins: Venous Duplex, Venous Duplex Legs, Lower Extremities Venous Insufficiency, US VENOUS REFLUX STUDY BILATERAL. Impressions Summary ########################################## INDICATION: Localized edema (R60.0) Study was performed with patient in steep reverse Trendelenburg . RIGHT: No evidence of deep or superficial venous thrombosis. No evidence of reflux in the deep system. A small Melendrez's cyst is noted measuring 1.03cm x 1.03cm. No reflux noted in the saphenofemoral junction. Venous reflux 4.02 secs in duration noted in the proximal GSV (diameter 0.31 cm). This segment is < 5 cm in length . There are additional segments of reflux lasting 1.80 secs in theproximal GSV at knee ( 0.17 cm), and 2.02 secs in the mid GSV at knee ( 0.13cm). No reflux is noted in the SSV. The saphenopopliteal junction was not clearly visualized. Views of the proximal SSV obtained, and no reflux was seen. No evidence of perforators. VCSS score: 4. CEAP: C3 , Ep , As , Pr LEFT: No evidence of deep or superficial venous thrombosis. No evidence of reflux in the deep system. A small Melendrez's cyst is noted measuring 1.73cm x 1.12cm. Reflux lasting 3.68 secs in duration is noted at the saphenofemoral junction (diameter 0.66 cm). Reflux lasting 2.65 secs in duration is noted in the proximal GSV (0.35 cm). No reflux noted in the SSV. The saphenopopliteal junction was not clearly visualized. Views of the proximal SSV obtained, and no reflux was seen. A non-refluxing AASV is noted. There is no evidence of perforators. VCSS score: 4. CEAP: C3 , Ep , As , Pr Patient Status:Outpatient. Study Location:Vascular Lab. Technical Quality:Technically difficult study due to patient's bodyhabitus. Velocities are measured in cm/s ; Diameters are measured in cm Right Doppler Measurements + + +------+ + !Location !Signal !Reflux!Reflux (sec)! + + +------+ + !GSV Thigh !Spontaneous Phasic ! !! + + +------+ + !Common Femoral !Spontaneous Phasic ! !! + + +------+ + !Popliteal !Spontaneous Phasic ! !! + + +------+ + Left Doppler Measurements + + +------+ + !Location !Signal !Reflux!Reflux (sec)! + + +------+ + !GSV Thigh !Spontaneous Phasic ! !! + + +------+ + !Common Femoral !Spontaneous Phasic ! !! + + +------+ + !Popliteal !Spontaneous Phasic ! !! + + +------+ + Right Mapping + + + + !Location !AP Diam !Trans Diam! + + + + !Prox GSV !0.72 !! + + + + !GSV 2 cm Distal to Junction !0.31 !! + + + + !GSV Above Knee !0.29 !! + + + + !GSV Calf !0.13 !! + + + + !SSV !0.13 !! + + + + Left Mapping + + + + !Location !AP Diam !Trans Diam! + + + + !Prox GSV !0.66 !! + + + + !GSV 2 cm Distal to Junction !0.35 !! + + + + !GSV Above Knee !0.27 !! + + + + !GSV Calf !0.21 !! + + + + !SSV !0.11 !! + + + + Findings Right Findings No evidence of deep or superficial venous thrombosis. Left Findings No evidence of deep or superficial venous thrombosis. Signature Daniele Phipps MD CV VASCULAR ORDERABLES Final Res ult documented in this encounter Visit Diagnoses Diagnosis Varicose veins of bilateral lower extremities with pain documented in this encounter Care Teams Restoration Technician Relationship Specialty Start Date End Date Leo Dennis MD [address] [place] [facility] [address] [place] [address] PCP - General Family Medicine 01/20/24 documented as of this encounter
--- NOTE | 2025-04-12 13:05 | XR_ITS ---
FINAL REPORT CLINICAL HISTORY: SCREENING COMPARISON: None FINDINGS: Using L1-4, the bone mineral density of the spine is 0.980 g/cm2, corresponding to T-score of -0.6, within normal limits but likely falsely elevated secondary to hypertrophic changes. Using the left forearm, the bone mineral density of 1/3 is 0.521 g/cm2, corresponding to a T-score of -2.9, compatible with osteoporosis. NOTE: T-score: Standard deviation compared with peak bone mass of young adult mean. *Following the recommendations of the International Society of Bone densitometry, classification of hip BMD is based on the lower of two T-scores; total hip or femoral neck. IMPRESSION: Normal bone mineral density of the lumbar spine, with diminished bone mineral density in the left forearm compatible with osteoporosis. Reviewed, Interpreted and Dictated by Jamar Corbin MD Transcribed by Jannet Moreno Authenticated and [facility]
--- OUTSIDE RECORDS SUMMARY | 2025-04-12 13:06 | XMS_ITS | Encounter Summary ---
Author Organization [employer] ([place], [place], [place], [place]) Address [address] [place] [address] Care Team Providers Care Inspection And Testing Supervisor Name Role Phone Leo Dennis MD Primary Care Provider [phone] Encounter Details Date Type Department Care Team (Late st Contact Info) Description 08/18/2020 Transcribed Document [facility] [address] [place] [address] Provider, lisa Blas MD Social History Tobacco Use Types Packs/Day Years Used Date Smoking Tobacco: Never Assessed Comments Unknown Sex and Gender Information Value Date Recorded Sex Assigned at Female 2022 8:47 PM CDT Legal Sex Female 8:47 PM CDT Gender Identity Female 2022 8:47 PM CDT Sexual Orientation Not on file documented as of this encounter Miscellaneous Notes * Cerner Conversion Note - [facility] Wan ProviderMD - 08/18/2020 4:39 PM EST Discharge Follow Up Phone Call Entered On: 08/18/2020 15:39 EST Performed On: 08/18/2020 15:39 EST by Emilia Dickson RN-Navigator Discharge Follow Up Phone Call Medical/Surgical Follow Up : Open Discharge Disposition : Discharge To Care Management: Home Health Services (Related/SOC within 3 days)-06 Post Visit Phone Call History : First call Contact Relationship to Patient : Spouse Provider Follow-Up Post Discharge : Discharge Follow Up CADEN JAMIL PA-ORT - 02:15 PM Previously Documented Senior Living Patient Stated Goal : No Patient Stated Goal Emilia Dickson RN-Navigator - 08/18/2020 15:39 EST Medical/Surgical Follow Up Adequate Pain Control After Visit : Yes Surgical Dressing Clean/Dry/Intact : Yes Surgical Site Free of Redness/Swelling/Drainage : Yes Symptoms of Fever : No Symptoms of Nausea or Vomiting : No Adequate Fluid Intake : Yes Food Intake, Post Visit : Good Bowel/Bladder Concerns : No Mobility Progressing or Maintained as Expected : Yes Emilia Dickson RN-Navigator - 08/18/2020 15:39 EST Electronically signed by Alexander [facility] Conversion Project Management Analyst Cerner at 01/23/2023 10:52 AM CDT documented in this encounter Plan of Treatment Not on file documented as of this encounter Visit Diagnoses Not on filedocumented in this encounter Care Teams Inspection And Testing Supervisor Relationship Specialty Start Date End Date Leo Dennis MD [address] [place] [facility] [address] [place] [address] PCP - General Family Medicine 01/20/24 documented as of this encounter
--- OUTSIDE RECORDS SUMMARY | 2025-04-12 13:06 | XMS_ITS | Encounter Summary ---
Author Organization [employer] ([place], [place], [place], [place]) Address [address] [place] [address] Care Team Providers Care Construction Framer Name Role Phone Leo Dennis MD Primary Care Provider + [phone] Encounter Details Date Type Department Care Team (Late st Contact Info) Description 08/17/2020 Transcribed Document [facility] Radiology [address] [place] [address] Provider, lisa Blas MD Social [...] Miscellaneous Notes * Cerner Conversion Note - [facility] Wan ProviderMD - 08/17/2020 1:06 PM EST Discharge Summary, PT Entered On: 08/17/2020 12:06 EST Performed On: 08/17/2020 12:06 EST by SEBAS LEACH PT Discharge Summary Reason for Discharge : Discharged from hospital Discharged to, Therapy : Home, with home health Discharge Summary Comment, PT : As of 08/17, pt with marked L hip pain, limited endurance and c/o nausea; pt able to tolerate ADLs wtih OTx at EOB and transfers with only Jeanette for safety and technique x2 reps from stretcher and from toilet for pericare assist ambulating ~30ft x2 with RWx Jeanette; gait distances limited due to nausea; no LOB noted; anticipated disch to home with HHPTx services and all questions answered/deferred appropriately with pt and family SEBAS LEACH PT - 08/17/2020 12:06 EST documented in this encounter Plan of Treatment Not on file documented as of this encounter Visit Diagnoses Not on filedocumented in this encounter Care Teams Construction Framer Relationship Specialty Start Date End Date Leo Dennis MD [facility] [address] [place] [address] PCP - General Family Medicine 01/20/24 documented as of this encounter
--- OUTSIDE RECORDS SUMMARY | 2025-04-12 13:06 | XMS_ITS | Encounter Summary ---
Author Organization [employer] ([place], [place], [place], [place]) Address [address] [place] [address] Care Team Providers Care Actuarial Analyst Name Role Phone Leo Dennis MD Primary Care Provider + [phone] Encounter Details Date Type Department Care Team (Late st Contact Info) Description 08/17/2020 Transcribed Document [facility] Radiology [address] [place] [address] Provider, [facility] MD Wan Social History Tobacco Use Types Packs/Day Years Used Date Smoking Tobacco: Never Assessed Comments Unknown Sex and Gender Information Value Date Recorded Sex Assigned at Female 2022 8:47 PM CDT Legal Sex Female 8:47 PM CDT Gender Identity Female 2022 8:47 PM CDT Sexual Orientation Not on file documented as of this encounter Miscellaneous Notes * Cerner Conversion Note - [facility] Wan ProviderMD - 08/17/2020 9:01 AM EST [facility] Main OR Preop Summary Primary Physician: TRACIE MUNOZ MD-ORT Finalized Date/Time: 08/17/20 11:58:00 Pt. Name: HEMALATHA HASKINS/Sex: 1945 Female Med Rec #: [id number] Physician: TRACIE MUNOZ MD-ORT Financial #: [id number] Pt. Type: O Room/Bed: Admit/Disch: 08/17/20 05:46:00 - Institution: [facility] PreOp Case Times Entry 1 In Preop 08/17/20 05:56:00 Ready for Holding n/a Room Patient Ready for 08/17/20 06:54:00 Surgery Patient Out of Preop 08/17/20 07:30:00 Patient Out of n/a Holding Room Last Modified By: MARTA Tolbert RN 08/17/20 11:57:59 [facility] PreOp Case Times Audit 08/17/20 11:57:59 Fisher Seal: AGUSTIN Modifier: WILSONDL <+> 1 Patient Out of Preop 08/17/20 06:54:35 Fisher Seal: AGUSTIN Modifier: WILSONDL <+> 1 Patient Ready for Surgery Finalized By: MARTA Tolbert, RN Document Signatures Signed By: MARTA Tolbert RN 08/17/20 11:58 Electronically signed by Alexander [facility] Conversion Dog [employer] Horse Racing Official Cerner at 01/23/2023 10:52 AM CDT documented in this encounter Plan of Treatment Not on file documented as of this encounter Visit Diagnoses Not on filedocumented in this encounter Care Teams Actuarial Analyst Relationship Specialty Start Date End Date Leo Dennis MD [address] [facility] [address] [place] [id number] PCP - General Family Medicine 01/20/24 documented as of this encounter
--- OUTSIDE RECORDS SUMMARY | 2025-04-12 13:06 | XMS_ITS | Encounter Summary ---
Author Organization [employer] ([place], [place], [place], [place]) Address [address] [place] [address] Care Team Providers Care Precision Crop Manager Name Role Phone Leo Dennis MD Primary Care Provider [phone] Encounter Details Date Type Department Care Team (Late st Contact Info) Description 08/17/2020 Transcribed Document [facility] [address] [place] [address] Provider, [facility] Wan Social History Tobacco Use Types Packs/Day Years Used Date Smoking Tobacco: Never Assessed Comments Unknown Sex and Gender Information Value Date Recorded Sex Assigned at Female 2022 8:47 PM CDT Legal Sex Female 8:47 PM CDT Gender Identity Female 2022 8:47 PM CDT Sexual Orientation Not on file documented as of this encounter Miscellaneous Notes * Cerner Conversion Note - [facility] Wan Ashraf MD - 08/17/2020 12:23 PM EST [facility] [place] [address] HEMALATHA HASKINS :1945 Visit Time:08/17/2020 What to do next Your Diagnosis Unilateral primary osteoarthritis, left hip, Unilateral primary osteoarthritis, left hip Instructions From Your Care Team Diet after Discharge: Resume usual diet as tolerated, Do not drink any alcoholic beverages, Drink at least 8-10 glasses of water per day Activity after Discharge: As tolerated, home health physical therapy, weight bearing as tolerated with walker Driving after Discharge: Do not drive for 24 hours Showering/Bathing: May shower, keep dressing clean and dry Notify Provider of: fever,chills, excessive swelling or bleeding, foul odor/or drainage at surgical site Wound/Incision Care after Discharge: Keep operative site/wound site clean and dry, walk 3-5 times a day take pain medication with food; take stool softener 2-3 times a day with pain medication [facility] [phone] [facility] will call you to let you know a date/time for your physical therapy visit. Medical Equipment--[employer]--[phone] Follow-Up Appointments Follow Up with CADEN JAMIL PA-ORMick When 09/07/2020 02:15 PM EST Where: [address] [address]- Medications What How Much When Instructions Next Dose acetaminophen-oxyCODONE (Percocet 5/ 325 oral tablet) 1 Tablet(s) Oral Every 4 Hours as needed for as needed for pain not to exceed 5 tablets/ day Printed Prescription aspirin (aspirin 81 mg oral delayed release tablet) 1 Tablet(s) Oral Two Times A Day Printed Prescription docusate (Colace 100 mg oral capsule) 1 Capsule(s) Oral Two Times A Day as needed for for constipation Printed Prescription ondansetron (Zofran 4 mg oral tablet) 1 Tablet(s) Oral Every 8 Hours as needed for Nausea Printed Prescription atropine-diphenoxylate (atropine-diphenoxylate 0.025 mg-2.5 mg oral tablet) 1 Tablet(s) Oral Four Times A Day as needed for for loose stool bacillus coagulans-inulin (Probiotic Formula (Bacillus Coagulans)) Oral Every Day biotin (biotin 5000 mcg oral capsule) 2 Every Day busPIRone (busPIRone 5 mg oral tablet) Oral Two Times A Day cholecalciferol (Vitamin D3 1000 intl units (25 mcg) oral tablet) 1 Tablet(s) Oral Every Day cyclobenzaprine (cyclobenzaprine 10 mg oral tablet) 1 Tablet(s) Oral Three Times A Day as needed for as needed for spasm fenofibrate (fenofibrate 145 mg oral tablet) 1 Tablet(s) Oral Every Day omega-3 polyunsaturated fatty acids (Fish Oil 1000 mg oral capsule) Oral Every Day potassium chloride (Malcolm Potassium 99 oral tablet) 1 Tablet(s) Oral Every Day Take your medications faithfully. Do NOT skip medication. Do NOT stop taking medications without the direction of a physician. Carry a list of your medications with you at all times, and take this medication list with you to your first follow up visit. Report any side effects. Avoid herbal remedies unless discussed with your physician. As part of your treatment plan, your physician may have prescribed a limited course of a controlled substance. This medication may be given to help people with moderate or severe pain or for other medical conditions, but there are risks involved with treatment. Common side effects may include nausea, constipation, drowsiness, sweating, itching, dry mouth, and rash. More serious side effects may include cognitive and motor impairment, like problems with thinking, concentrating, alertness, and movement (e.g. slowed reflexes), and driving and operating heavy machinery can be dangerous. It is important for you to talk to your physician if you have these side effects or questions. These controlled substances can produce physical dependence and be habit-forming if taken for an extended period of time, which means that the body has gotten used to them and may experience withdrawal symptoms if they are abruptly stopped. Withdrawal symptoms can include runny nose, sweating, goose bumps, diarrhea, abdominal cramping, rapid heartbeat, difficulty sleeping, and nervousness. Please dispose of unused and medications per pharmacy guidance. Education Materials Discharge Instructions for Anterior Total Hip Replacement Your Hip Incision: No swimming, soaking or bathing in a tub until cleared by the surgeon. If you have an Aquacel (light brown) dressing: Keep your dressing in place for 7-10 days. This type of dressing is water resistant. Please check the edges of the dressing, if they are intact, you may shower until the dressing is removed. Either the home health Physical Therapist or Nurse will remove the dressing after 7- 10 days, or your surgeon will remove it at your follow-up appointment. Then your incision may be open to air. Ideally, sponge bathe from the time the dressing is removed until your follow-up appointment. If you have a dry, white dressing: Change daily as needed. Wash your hands before and after changing the dressing. Activity: ??? You may put weight on your leg when you walk, unless your surgeon tells you not differently. Use your walker until the therapist or surgeon say you do not need it anymore. Continue your exercises from physical therapy. ??? Stay active, getting up every 1-2 hours, walk short distances, and increase how far you walk a little each week. No driving until cleared by your surgeon. ??? If your surgeon has ordered support hose, continue to wear them for 6 weeks in order to prevent blood clots. Remove them 1-2 times per day for about 30 minutes-1 hour. Check your skin for red or open areas under stockings. Thigh-high support hose can be bought online and at many pharmacies, be sure that compression is 15-20mmHg. ??? For swelling, prop up your leg above your heart. Apply cold therapy, 30 minutes on 30 minutes off with cloth or clothing between cold wrap and skin. General Instructions: ??? Increase fiber and protein intake. Drink 8-10 glasses of water a day and take stool softeners while you are on pain medication, since they cause constipation. If you do not have a bowel movement in 3-4 days after your surgery, try an over the counter laxative, such as milk of magnesia, miralax, dulcolax tablet or suppository, or fleets enema. If you do not have success after this, contact your home health nurse or surgeon office. ??? Continue using your incentive spirometer to keep fever and lung infection away. Aim for 10 breaths every hour while you are awake. ??? Take pain medicine as needed, especially before therapy. ??? Let your doctors and dentist know you have a prosthetic hip. They may need to give you an antibiotic before a procedure. Call Your Surgeon: Infection: Your hip has increased swelling that does not get better with time, propping up your leg and with rest. Your incision has a foul smell or your incision begins to open. Your incision gets red, is warm or has increased drainage after 2 days. You have a fever over 101 degrees for more than 24 hours. A Blood Clot: You have increased swelling, redness, warmth or pain in your calf. A Fall: ??? You fall down, but don???t have an obvious injury. Call 911: Sudden shortness of breath and/or chest pain You fall down and cannot get up Stroke signs and symptoms: Facial droop, uneven smile, arm numbness, arm weakness, slurred speech, difficulty speaking or understanding Last Revised October 2016 CALL FIRST! Unless you are experiencing life-threatening issues, call your surgeon???s office or nurse navigator first, before going to the Emergency Department. Call your surgeon or nurse navigator if: ??? Your incision has increased swelling that does not get better with time, rest, and propping up your leg ??? Your incision has a foul smell or begins to open ??? You have a large amount of bleeding from incision ??? Your incision gets red, warm or increased drainage after 2 days ??? You have a fever over 101 degrees for more than 24 hours ??? You have increased swelling, redness, warmth or pain in your calf ??? You fall, but don???t have an obvious injury ??? You have questions or cause for concern regarding your total joint replacement Call 911 if: ??? You have sudden chest pain or shortness of breath ??? You fall and cannot get up ??? Life-threatening signs or symptoms ??? Stroke signs and symptoms: Facial droop, uneven smile, arm numbness, arm weakness, slurred speech, difficulty speaking or understanding If you are a patient of Dr. Regalado or Dr. Wilkerson, call [phone] If you are a patient of Dr. Pedroza, call [phone] Nurse Navigator: Kiara Dickson Office: [phone]; ; available during regular business hours Emergency Awareness and Preventative Care STROKE is an EMERGENCY Every Minute Counts Act FAST and Check for these signs: FACE Does the face look uneven? ARM Does one arm drift down? SPEECH Does their speech sound strange? TIME Call at any sign of stroke Stroke Risk Factors Atrial Fibrillation (irregular heartbeat) Diabetes Family history of stroke Heart Disease Heavy alcohol use High Blood Pressure High Cholesterol Physical inactivity and obesity Smoking Cigarette Smoking The facts are clear, cigarette smoking will shorten your life. Smoking can cause many illnesses along the way. As a healthcare provider, we recommend that you stop smoking. Assistance with quitting is available by contacting 9-102-DIRQ-NOW. This is a free resource providing counseling, support, and referral. Or you may contact your personal physician. National Suicide Prevention Lifeline: The National Suicide Prevention Lifeline is a national network of local crisis centers that provides free and confidential emotional support to people in suicidal crisis or emotional distress 24 hours a day, 7 days a week. Don't Wait! Stop a Heart Attack Before it Starts What is a heart attack? A heart attack is damage or to a part of the heart from severely decreased or lack of blood flow to the heart. Over time, arteries can become narrow from the buildup of fat and cholesterol, which is called plaque. The plaque can rupture causing a blood clot to form. When the blood clot forms, the artery can become severely narrowed or completely blocked, causing a heart attack. Heart attack is the leading cause of in the [place]. 85% of muscle damage occurs within the first 2 hours. Delay in the recognition of heart attack symptoms increases the chances of . Know the early symptoms of a heart attack: Nausea Feeling of fullness in chest Jaw Pain Pain that travels down one or both arms Fatigue/being tired Anxiety Back Pain Chest pressure, squeezing, or discomfort Shortness of breath Sweating, or a cold sweat Feeling of impending doom There are unusual signs of a heart attack, too! Women, the elderly, and diabetics may present with atypical symptoms: Fainting/dizziness Weakness Confusion Risk Factors for a Heart Attack Some heart disease risk factors, such as age and family history, cannot be changed. Others, like smoking and lack of exercise, can be changed. Smoking High Cholesterol High Blood Pressure Family History Obesity Age Gender (Males are at higher risk) Lack of Exercise Diabetes Diet Stress Excessive Alcohol Intake If you or someone you know is experiencing the signs and symptoms of a heart attack, DON???T DELAY. Call immediately and seek help. If someone collapses, perform CPR! Do not attempt to drive if you are having symptoms of heart attack. Hands-Only CPR Why Hands-Only CPR? Hands-Only CPR has been shown to be as effective as conventional CPR for cardiac arrests that occur outside of a hospital. Survival depends on immediately receiving CPR from someone nearby. How do you perform Hands-Only CPR? There are two easy steps: Call if you see a teen or adult collapse Push hard and fast in the center of the chest at a beat of 100 beats per minute. Save a life! 4 WAYS TO GET AHEAD OF SEPSIS SEPSIS is a MEDICAL EMERGENCY. Time matters! Infections put you and your family at risk for a life-threatening condition called sepsis. Sepsis is the body's extreme response to an infection. It is life-threatening, and without timely treatment, sepsis can rapidly lead to tissue damage, organ failure, and . Sepsis happens when an infection you already have-in your skin, lungs, urinary tract or somewhere else-triggers a chain reaction throughout your body. 1 PREVENT INFECTIONS Take good care of chronic conditions. Talk to your doctor about getting the recommended vaccines. 2 PRACTICE GOOD HYGIENE Wash your hands frequently. Keep cuts or open sores clean and covered until they are healed. 3 KNOW THE SYMPTOMS Confusion or disorientation Shortness of breath High heart rate Fever, shivering, or feeling very cold Extreme pain or discomfort Clammy or sweaty skin 4 ACT FAST Get medical care IMMEDIATELY if you suspect sepsis or if you have an infection that is not getting better or is getting worse. To learn more about sepsis and how to prevent infections, visit www.cdc.gov/sepsis. Test Results Laboratory or Other Results This Visit (last charted value for your 08/17/2020 visit) Hematology 08/17/2020 10:31 AM Hgb: 11.4 g/dL -- Normal range between ( 11.2 and 15.7 ) 08/02/2020 1:48 PM WBC: 5.8 K/uL -- Normal range between ( 4.5 and 10.5 ) RBC: 4.18 Million/uL -- Normal range between ( 3.93 and 5.22 ) Hct: 38.6 % -- Normal range between ( 34.1 and 44.9 ) Platelet Count: 354 K/uL -- Normal range between ( 163 and 369 ) MCH: 29.9 pg -- Normal range between ( 25.6 and 32.2 ) MCHC: 32.4 Gram/dL -- Normal range between ( 32.2 and 36.5 ) MCV: 92.3 fL -- Normal range between ( 79.0 and 94.8 ) Slide Review: No Eos %: 1.6 % -- Normal range between ( 0.0 and 7.0 ) Bleckley #: 0.34 K/uL -- Normal range between ( 0.16 and 1.00 ) Eos #: 0.09 x10(3)/uL -- Normal range between ( 0.00 and 0.80 ) Bleckley %: 5.9 % -- Normal range between ( 3.0 and 9.0 ) Baso %: 0.9 % -- Normal range between ( 0.0 and 1.5 ) Baso #: 0.05 x10(3)/uL -- Normal range between ( 0.00 and 0.20 ) RDW: 14.7 % -- Normal range between ( 11.7 and 14.9 ) Neut %: 57.8 % -- Normal range between ( 34.0 and 71.0 ) Neut #: 3.33 K/uL -- Normal range between ( 1.56 and 6.13 ) Lymph %: 33.3 % -- Normal range between ( 19.3 and 53.1 ) Lymph #: 1.92 x10(3)/uL -- Normal range between ( 1.00 and 3.90 ) MPV: 10.1 fL -- Normal range between ( 9.4 and 12.4 ) IG#: 0.03 x10(3)/uL -- Normal range between ( 0.00 and 0.05 ) IG%: 0.50 % -- Normal range between ( 0.00 and 0.60 ) Microbiology 08/15/2020 3:03 PM Novel Coronavirus 2019: Negative 08/02/2020 1:48 PM MRSA Surveillance: See Result General Chemistry 08/02/2020 1:48 PM Creatinine Level: 0.90 mg/dL -- Normal range between ( 0.55 and 1.02 ) Sodium Level: 142 mmol/L -- Normal range between ( 136 and 146 ) Potassium Level: 3.9 mmol/L -- Normal range between ( 3.5 and 5.1 ) Chloride Level: 108 mmol/L -- Normal range between ( 102 and 112 ) Carbon Dioxide Level: 28 mmol/L -- Normal range between ( 21 and 32 ) Anion Gap: 10 -- Normal range between ( 9 and 20 ) Hgb A1C: 5.7 % eAVG Glucose: 117 mg/dL Bun/Creatinine: 21.1 -- Normal range between ( 8.0 and 20.0 ) Calcium Level: 9.4 mg/dL -- Normal range between ( 8.4 and 10.1 ) eGFR : >60 mL/min/1.73m2 eGFR NonAfrican: >60 mL/min/1.73m2 Glucose Level: 84 mg/dL -- Normal range between ( 74 and 106 ) Blood Urea Nitrogen: 19 mg/dL -- Normal range between ( 7 and 22 ) Coagulation 08/02/2020 1:48 PM INR: 1.0 -- Normal range between ( 0.9 and 1.2 ) PTT: 25.4 Second(s) -- Normal range between ( 22.0 and 33.0 ) PT: 10.3 Second(s) -- Normal range between ( 9.2 and 12.0 ) Patient Name:HEMALATHA HASKINS I have received this information and was given the opportunity to ask questions. Patient/Cottrell Blower Name: Patient/Cottrell Blower Signature: Relationship to Patient: Clinician/Hospital Cottrell Blower Signature: Date: documented in this encounter Plan of Treatment Not on file documented as of this encounter Visit Diagnoses Not on filedocumented in this encounter Care Teams Precision Crop Manager Relationship Specialty Start Date End Date Leo Dennis MD [address] [facility] [address] [place] [id number] PCP - General Family Medicine 01/20/24 documented as of this encounter
--- OUTSIDE RECORDS SUMMARY | 2025-04-12 13:06 | XMS_ITS | Encounter Summary ---
Author Organization [employer] ([place], [place], [place], [place]) Address [address] [place] [address] Care Team Providers Care Physician General Practice Name Role Phone Leo Dennis MD Primary Care Provider [phone] Encounter Details Date Type Department Care Team (Late st Contact Info) Description 08/18/2020 Transcribed Document [facility] [address] [place] [address] Provider, lisa Blas MD Social [...] Notes * Cerner Conversion Note - [facility] Wan ProviderMD - 08/18/2020 4:18 PM EST Discharge Follow Up Phone Call Entered On: 08/18/2020 15:19 EST Performed On: 08/18/2020 15:18 EST by Emilia Dickson RN-Navigator Discharge Follow Up Phone Call Discharge Disposition : Discharge To Care Management: Home Health Services (Related/SOC within 3 days)-06 Post Visit Phone Call History : First call, No answer Provider Follow-Up Post Discharge : Discharge Follow Up CADEN JAMIL PA-ORT - 02:15 PM Previously Documented Clinical Research Manager Patient Stated Goal : No Patient Stated Goal Emilia Dickson RN-Navigator - 08/18/2020 15:18 EST documented in this encounter Plan of Treatment Not on file documented as of this encounter Visit Diagnoses Not on filedocumented in this encounter Care Teams Physician General Practice Relationship Specialty Start Date End Date Leo Dennis MD [address] [place] [facility] [address] [place] [address] PCP - General Family Medicine 01/20/24 documented as of this encounter
--- OUTSIDE RECORDS SUMMARY | 2025-04-12 13:06 | XMS_ITS | Referral Summary ---
Author Organization [employer] ([place], [place], [place], [place]) Address [address] [place] [address] Care Team Providers Care Cotton Stomper Name Role Phone Leo Dennis MD Primary Care Provider [phone] Encounters Date Type Department Care Team Description 04/05/2025 Travel 04/05/2025 12:16 PM EDT - 04/05/2025 11:59 PM EDT Hospital Encounter [facility] Non-Invasive Cardiology [address] [place] [address] Daniele Phipps MD Varicose veins of bilateral lower extremities with pain Discharge Disposition: Home or Self Care from Last 3 Months Allergies Active Allergy Reactions Criticality Noted Date Comments Fwybhgd-Eeh-Gkp Reductase Inhibitors Anaphylaxis High 01/13/2024 Joints hurt Medications esomeprazole (NexIUM) 40 MG capsule Take 1 capsule (40 mg total) by mouth daily. Active DULoxetine (CYMBALTA) 60 MG capsule Take 1 capsule (60 mg total) by mouth daily. Active lisinopriL (PRINIVIL,ZESTRI L) 10 MG tablet Take 1 tablet (10 mg total) by mouth daily. 12/02/2023 Active hydroCHLOROthiaz megha (HYDRODIURIL) 12.5 MG tablet Take 1 tablet (12.5 mg total) by mouth daily. 10/15/2023 Active fluticasone propionate (FLONASE) 50 mcg/actuation nasal spray 2 sprays by Nasal route daily as needed for Rhinitis. 11/28/2023 Active butalbital-aceta minophen-caffein e (FIORICET, ESGIC) 50-325-40 mg per tablet Take 1 tablet by mouth daily as needed for Headaches. 10/31/2022 Active busPIRone (BUSPAR) 5 MG tablet Take 1 tablet (5 mg total) by mouth 2 (two) times daily as needed (for Anxiety). 10/15/2023 Active fenofibrate (TRICOR) 145 MG tablet Take 1 tablet (145 mg total) by mouth daily. Active Lactobacillus acidophilus Cap Take 1 capsule by mouth daily. Active ondansetron (ZOFRAN) 4 MG tablet Take 1 tablet (4 mg total) by mouth 4 (four) times daily as needed for Nausea for up to 60 doses. 30 tablet 01/21/2024 Active Active Problems No known active problems Social History Tobacco Use Types Packs/Day Years Used Date Smoking Tobacco: Former Cigarettes Q uit: 1972 Passive Smoke Exposure: Past Smokeless Tobacco: Never Tobacco Cessation:Counseling Given: Not Answered Alcohol Use Standard Drinks/Week Comments Not Asked 0 (1 standard drink = 0.6 oz pur e alcohol) occasional glass of wine [employer] Answer Date Recorded In the past 12 months, has t he [employer], [employer], oil, or water [employer] threatened to shut off services in your [...] Do you speak a language other than Turkish at [place]? No 01/20/2024 Do you want help with [...] PM CDT Sexual Orientation Not on file Last Filed Vital Signs Vital Sign Reading Time Taken Comments Blood Pressure 133/100 01/21/2024 9:25 AM EDT Pulse 72 01/21/2024 9:25 AM EDT Temperature 36.7 C (98.1 F) 01/21/2024 9:25 AM EDT Respiratory Rate 16 01/20/2024 8:38 PM EDT Oxygen Saturation 97% 01/21/2024 9:25 AM EDT Inhaled Oxygen Concentration - - Weight 80.7 kg (178 lb) 01/20/2024 6:21 AM EDT Height 160 cm (5' 3 ) 01/14/2024 11:45 AM EDT Body Mass Index 31.53 01/14/2024 11:45 AM EDT Plan of Treatment Not on file Medical Devices Implanted Type Area Moving Van Driver Device Identifier Shelf Expiration Date Model / Serial / Lot Scr Low Profile 6.5x25mm [id number] - [id number] Implanted:Qt y: 1 on 01/20/2024 by Denisse Regalado MD at [facility] IMPLANTS Right: Hip [employer] [id number] 10/28/2028 [id number] / / [id number] Scr Low Profile 6.5x25mm [id number] - [id number] Implanted:Qt y: 1 on 01/20/2024 by Denisse Regalado MD at [facility] IMPLANTS Right: Hip [employer] [id number] 11/06/2028 [id number] / / [id number] Trident Acel Cluster 48mm D 702-04-48d - [id number] Implanted:Qt y: 1 on 01/20/2024 by Denisse Regalado MD at [facility] TOTAL JOINT CONSTRUCT Right: Hip [employer] [id number] 11/20/2028 702-04-48 D / / [id number] Insrt Trident Poly X3 36mm D 723-00-36d - [id number] Implanted:Qt y: 1 on 01/20/2024 by Denisse Regalado MD at [facility] TOTAL JOINT CONSTRUCT Right: Hip [employer] [id number] 10/09/2028 723-00-36 D / / [id number] Stem Hip Std Off Insignia Sz 4 [id number] - [id number] Implanted:Qt y: 1 on 01/20/2024 by Denisse Regalado MD at [facility] TOTAL JOINT CONSTRUCT Right: Hip [employer] [id number] 10/19/2028 5338-9269 / / [id number] Head Ceramic V40 36mm 6570-0-536 - [id number] Implanted:Qt y: 1 on 01/20/2024 by Denisse Regalado MD at [facility] TOTAL JOINT CONSTRUCT Right: Hip [employer] [id number] 07/22/2028 6570-0-53 6 / / [id number] Procedures Procedure Name Priority Date/Time Associated Diagnosis Comments US VENOUS REFLUX STUDY BILATERAL Routine 04/05/2025 2:16 PM EDT Varicose veins of bilateral lower extremities with pain from Last 3 Months Results * US VENOUS REFLUX STUDY BILATERAL (04/05/2025 2:16 PM EDT) Anatomical Region Laterality Modality Lower Extremity Vascular Ultraso und 04/05/2025 1:06 PM EDT Narrative 04/06/2025 8:01 AM EDT Vascular Lower Extremities Venous Insufficiency Procedure Demographics Patient Name BRO Boone Age 80 Patient Number [id number] Gender Female Race Unknown Ethnicity Corporate ID [id number] Height 63 Date of 1945 Weight 178 Accession Number [id number] BSA 1.84 m^2 Room Number BMI 31.53 kg/m^2 Referring GADIEL TRAORE Interpreting JULIAN BECERRA MD Physician Physician Knife Finisher MITA Cross Procedure Type of Study: Veins: Venous Duplex, [...] Extremities Venous Insufficiency Procedure Demographics Patient Name BRO Boone Age 80 Patient Number [id number] Gender Female Race Unknown Ethnicity Corporate ID [id number] Height 63 Date of 1945 Weight 178 Accession Number [id number] BSA 1.84 m^2 Room Number BMI 31.53 kg/m^2 Referring GADIEL TRAORE Interpreting JULIAN VILLANUEVA Physician Physician Knife Finisher MITA Cross Procedure Type of Study: Veins: Venous Duplex, [...] MD CV VASCULAR ORDERABLES Final Res ult from Last 3 Months Insurance [facility] MEDIC[facility] ADVANTAGE Advance Directives For more information, please contact: [phone] * Full Code (Latest Code Status on File) Date Activated Date Inactivated Comments 01/20/2024 9:21 AM 01/21/2024 12:54 PM * Full Code Date Activated Date Inactivated Comments 01/20/2024 5:20 AM 01/20/2024 9:21 AM Care Teams Cotton Stomper Relationship Specialty Start Date End Date Leo Dennis MD [address] [facility] [address] [place] [address] PCP - General Family Medicine 01/20/24
--- OUTSIDE RECORDS SUMMARY | 2025-04-12 13:06 | XMS_ITS | Clinical Summary ---
Author Organization [facility] Address [address] [place] [id number] Care Team Providers Care Structural Design Engineer Name Role Phone Leo Dennis MD Primary Care Provider [phone] Allergies Active Allergy Reactions Criticality Noted Date Comments Indomethacin Unknown (See Comments) Low Patient unsure Medications omeprazole (priLOSEC) 40 MG capsule Take 40 mg by mouth Daily As Needed ( when my ulcers are acting up ). 0 12/06/19 17 Active Biotin (BIOTIN MAXIMUM STRENGTH) 10 MG tablet Take 1 tablet by mouth Daily. Active Multiple Vitamins-Minerals (MULTIVITAMIN ADULTS 50+) tablet Take 1 tablet by mouth Daily. Active Reacivrrmc-TWME-Iq ffeine 50-325-40 MG/15ML solution Take by mouth. Active nystatin (MYCOSTATIN) 583631 UNIT/GM cream Apply topically to the appropriate area as directed 2 (Two) Times a Day. Active ondansetron ODT (ZOFRAN ODT) 8 MG disintegrating tablet Dissolve 1 tablet by mouth Every 8 (Eight) Hours As Needed for Nausea or Vomiting. 10 tablet 3 08/15/2019 12:49 PM EST 08/14/20 19 Active acetaminophen (TYLENOL 8 HOUR) 650 MG 8 hr tablet Take 1 tablet by mouth Every 8 (Eight) Hours As Needed for Mild Pain. 30 tablet 1 09/10/19 20 Active Active Problems Problem Noted Date Diagnosed Date Ovarian mass 08/14/2019 Left tubo-ovarian mass 07/23/2019 H/O LEEP 07/23/2019 LLQ pain 07/23/2019 LGSIL on Pap smear of cervix 07/23/2019 Family History Medical History Relation Name Comments Alcohol abuse Father Lung cancer Father Breast cancer Maternal Grandmother Bone cancer Mother Colon cancer Neg Hx Diabetes Neg Hx Ovarian cancer Neg Hx Relation Name Status Comments Father Maternal Grandmother Mother Social History Tobacco Use Types Packs/Day Years Used Date Smoking Tobacco: Former Cigarettes 0.3 10 1 10/14/1989 - 08/13/2000 Smokeless Tobacco: Never Alcohol Use Standard Drinks/Week Comments Yes 0 (1 standard drink = 0.6 oz pur e alcohol) occasion Abuse Screen Answer Date Recorded Unsafe at Home or Work/School Not on file Feels Threatened by Someone? Not on file 05/2023 Does Anyone Keep You from Co ntacting Others or Doint Things Outside the Home? Not on file 06/10/2023 Physical Sign of Abuse Present Not on file 1 Housing Stability Answer Date Recorded Current Living Arrangements Not on file 05/2023 Potentially Unsafe Housing Conditions Not on michael e 06/10/2023 Family and Community Support Answer Rusty e Recorded Help with Day-to-Day Activities Not on file 06/10/2023 Lonely or Isolated Not on file 06/10/2023 Employment Answer Date Recorded Do you want help finding or keeping work or a therese b? Not on file 06/10/2023 Disabilities Answer Date Recorded Concentrating, Remembering, or Making Decisions Difficulty Not on file 06/10/2023 Doing Errands Independently Difficulty Not on fi le 06/10/2023 Education Answer Date Recorded Help with school or training? Not on file Preferred Language Not on file 06/10/2023 Comments No Sex and Gender Information Value Date Recorded Sex Assigned at Not on file Legal Sex Female 11:13 AM EDT Gender Identity Not on file Sexual Orientation Not on file Last Filed Vital Signs Vital Sign Reading Time Taken Comments Blood Pressure 154/70 09/10/2019 1:05 PM EST Pulse 71 09/10/2019 1:05 PM EST Temperature 36.6 C (97.8 F) 09/10/2019 1:05 PM EST Respiratory Rate 16 09/10/2019 1:05 PM EST Oxygen Saturation 96% 09/10/2019 1:05 PM EST Inhaled Oxygen Concentration - - Weight 77.6 kg (171 lb) 09/10/2019 1:05 PM EST Height 160 cm (5' 3 ) 09/10/2019 1:05 PM EST Body Mass Index 30.29 09/10/2019 1:05 PM EST Plan of Treatment Health Maintenance Due Date Last Done Comments DXA SCAN 1945 TDAP/TD VACCINES (1 - Tdap) 1966 COLOGUARD 02/28/1992 COLON CANCER SCREENING 5 YEA R SIGMOIDOSCOPY 02/28/1992 COLONOSCOPY 02/28/1992 COLORECTAL CANCER SCREENING 02/28/1992 CT COLONOGRAPHY 02/28/1992 FECAL OCCULT BLOOD TEST 02/28/1992 FIT Testing (1 year) 02/28/1992 ZOSTER VACCINE (1 of 2) 1997 ANNUAL PHYSICAL 12/19/2016 HEPATITIS C SCREENING 12/19/2016 Pneumococcal Vaccine 50+ (2 of 2 - PCV) 01/19/2022 01/19/2021, 12/15/2020, 12/06/2020, Additional history exists RSV Vaccine - Adults (1 - 1- dose 75+ series) 2022 COVID-19 Vaccine (1 - 2023-2 5 season) 2024 INFLUENZA VACCINE 06/02/2025 07/06/2021, , 12/15/2020, Additional history exists MAMMOGRAM Discontinued 07/01/2019 Procedures Procedure Name Priority Date/Time Associated Diagnosis Comments SCANNED - MAMMO 07/01/2019 from Last 3 Months or Most Recently Relevant to Health Maintenance Results * SCANNED - MAMMO (07/01/2019) Anatomical Region Laterality Modality Other us Thomas Johansen MD CHART REVIEW TABS Final Re sult from Last 3 Months or Most Recently Relevant to Health Maintenance Insurance [employer] MED[employer] REPL[employer] Member Subscriber Plan / Payer (Ef fective 2019-Present) Name:Hemalatha Haskins Relation to Subscriber:Self Name:Hemalatha Haskins Payer ID:[id number] (NAIC) Type:Medicare Replacement Address: [place] [phone] Advance Directives * CPR (Attempt to Resuscitate) (Latest Code Status on File) Date Activated Date Inactivated Comments 08/14/2019 5:58 PM 08/15/2019 3:06 PM Question Answer Comments Code Status (Patient has no pulse and is not breathing): CPR (Attempt to Resuscitate) Medical Interventions (Patie nt has pulse or is breathing): Full Level Of Support Discussed With: Patient Care Teams Structural Design Engineer Relationship Specialty Start Date End Date Leo Dennis MD [facility] [address] [facility] [address] [place] [address] PCP - General Family Medicine 06/30/19
--- OUTSIDE RECORDS SUMMARY | 2025-04-12 13:06 | XMS_ITS | Clinical Summary ---
Author Organization [employer] Address [facility] [place] [address] Phone Care Team Providers Care Plate Keeper Name Role Phone Unavailable Primary Care Provider Unavailabl e Allergies No known active allergies Medications fenofibrate (TRICOR) 145 mg Oral Tablet Take by mouth daily. Active esomeprazole (NEXIUM) 40 mg Oral Capsule, Delayed Release(E.C.) Take by mouth daily. Active DULoxetine (CYMBALTA) 60 mg Oral Capsule, Delayed Release(E.C.) Take by mouth 2 times daily. Active rosuvastatin (CRESTOR) 5 mg Oral Tablet Take 5 mg by mouth 2 times daily. Active hydroCHLOROthiaz megha (MICROZIDE) 12.5 mg Oral Capsule Take 12.5 mg by mouth daily. Active cyclobenzaprine (FLEXERIL) 10 mg Oral Tablet Take by mouth 3 times daily as needed for Muscle spasms. Every 8 hours PRN Active sucralfate (CARAFATE) 1 gram Oral Tablet Take by mouth 3 times daily as needed. Active Lactobacillus acidophilus (PROBIOTIC ORAL) Take by mouth daily. Active psyllium seed, with sugar, (FIBER ORAL) Take 4 Tablets by mouth daily. Active butalb/acetamino phen/caffeine (BUTALBITAL-ACET AMINOPHEN-CAFF ORAL) Take by mouth every 4 hours as needed (Headache). Active buprenorphine 10 mcg/hour TD Patch Weekly Place onto the skin. Active Surgical History Surgery Date Site/Laterality Comments SHOULDER SURGERY HIP SURGERY CHOLECYSTECTOMY HYSTERECTOMY UPPER GASTROINTESTINAL ENDOSCOPY COLONOSCOPY FOOT SURGERY right bunion EYE SURGERY CERVIX BIOPSY Medical History Medical History Date Comments Hyperlipidemia Heartburn Irritable bowel syndrome Arthritis Headache Depression Motion sickness Lumbar stenosis Family History Medical History Relation Name Comments Anesth Problems Neg Hx Social History Tobacco Use Types Packs/Day Years Used Date Smoking Tobacco: Former Cigarettes Q uit: 2002 Smokeless Tobacco: Never Alcohol Use Standard Drinks/Week Comments Yes 0 (1 standard drink = 0.6 oz pur e alcohol) rare Comments No Sex and Gender Information Value Date Recorded Sex Assigned at Not on file Legal Sex Female 2:26 PM EST Gender Identity Not on file Sexual Orientation Not on file Obstetrics History Last Filed Vital Signs Vital Sign Reading Time Taken Comments Blood Pressure 119/80 12/29/2022 4:30 PM EDT Pulse 74 12/29/2022 4:30 PM EDT Temperature 37 C (98.6 F) 12/29/2022 4:30 PM EDT Respiratory Rate 16 12/29/2022 4:30 PM EDT Oxygen Saturation 97% 12/29/2022 4:30 PM EDT Inhaled Oxygen Concentration - - Weight 78.5 kg (173 lb) 12/29/2022 10:37 AM EDT Height 160 cm (5' 3 ) 12/29/2022 10:37 AM EDT Body Mass Index 30.65 12/29/2022 10:37 AM EDT Plan of Treatment Health Maintenance Due Date Last Done Comments Wellness Exam Medicare 1948 Hepatitis C Screening 1965 DTaP/TDaP/Td (1 - Tdap) 1966 Zoster (1 of 2) 1997 Bone Density Screening 02/28/2012 Pneumococcal Vaccine 50+ (2 of 2 - PCV) 01/19/2022 01/19/2021, 12/15/2020, 12/06/2020 RSV or 60+ (1 - 1-dose 75+ series) 2022 COVID-19 Vaccine ( season) 2024 06/29/2022, 01/15/2022, 05/31/2021, Additional history exists Influenza Vaccine (#1) 2025 2, 07/06/2021, 05/10/2021, Additional history exists Hepatitis B Vaccine Aged Out No longe r eligible based on patient's age to complete this topic Meningococcal B Vaccine Aged Out No l onger eligible based on patient's age to complete this topic Medical Devices Implanted Type Area Business Solutions Consultant Device Identifier Shelf Expiration Date Model / Serial / Lot Shoulder Hardware Iol Implanted - Out of Service Type Area Business Solutions Consultant Device Identifier Shelf Expiration Date Model / Serial / Lot Hip Replacement Insurance [employer] MEDICARE PPO MR * Guarantor: Hemalatha Haskins Account Type Relation to Patient Date of Phone Billing Address [place] Personal Family Self
--- OUTSIDE RECORDS SUMMARY | 2025-04-12 13:07 | XMS_ITS | Encounter Summary ---
Author Organization [employer] ([place], [place], [place], [place]) Address [address] [place] [address] Care Team Providers Care Washing Machine Loader And Puller Name Role Phone Leo Dennis MD Primary Care Provider [phone] Encounter Details Date Type Department Care Team (Late st Contact Info) Description 08/17/[address] [facility] Radiology [address] [place] [address] Provider, [facility] MD Wan Social History Tobacco Use Types Packs/Day Years Used Date Smoking Tobacco: Never Assessed Comments Unknown Sex and Gender Information Value Date Recorded Sex Assigned at Female 2022 8:47 PM CDT Legal Sex Female 8:47 PM CDT Gender Identity Female 2022 8:47 PM CDT Sexual Orientation Not on file documented as of this encounter Miscellaneous Notes * Cerner Conversion Note - [facility] Wan ProviderMD - 08/17/2020 2:07 PM EST Evaluation, Occupational Therapy Entered On: 08/17/2020 13:10 EST Performed On: 08/17/2020 11:46 EST by MARIAA RUDD OTR/Mely General Information, OT Co-treated by, OT : Physical Therapist General Information Comment, OT : Diagnosis: L anterior MARIAA CASTANEDA OTR/Mely - 08/17/2020 13:53 EST Visit Type, OT : Initial evaluation Patient Orders : Order Date Order Ordering 08/17/2020 07:00 OT Evaluation and Treatment Ordered By: TRACIE MUNOZ MD-ORT Active Diagnoses : No Qualifying Diagnoses Admission Date : 08/17/2020 05:46 Personal Devices : Personal Devices No Devices Recorded Assistive Devices : Assistive Devices No Devices Recorded Precautions in Place : Fall prevention measures, Hip precautions, anterior MARIAA RUDD OTR/Mely - 08/17/2020 13:10 EST General Status Patient Received Status : Supine in bed Treatment Start Time : 08/17/2020 11:13 EST Patient Left Status : Sitting edge of bed, RN/PCT informed, Family/Visitors at bedside, All needs met and within reach Treatment End Time : 08/17/2020 11:46 EST Treatment Time : 33 Minute(s) MARIAA RUDD OTR/Mely - 08/17/2020 13:53 EST History and Environment, OT Living Situation, Therapy : Home Patient Lives With : Alone Persons Providing Information : Patient Home Equipment, Therapy : Cane Cane : Cane, single point Home Setup : One story Stairs : No MARIAA RUDD OTR/Mely - 08/17/2020 13:53 EST Prior LOF Bathing, OT : Independent Prior LOF Bed Mobility : Independent Prior LOF Upper Body Dressing, OT : Independent Prior LOF Lower Body Dressing, OT : Independent Prior LOF Toileting : Independent Prior LOF Transfer : Independent Prior LOF Grooming, OT : Independent Prior LOF for IADLs, OT : Independent MARIAA RUDD OTR/Mely - 08/17/2020 13:53 EST Upper Extremity Right UE Active ROM : WFL Right UE Strength : WFL Left UE Active ROM : WFL Left UE Strength : WFL MARIAA RUDD OTR/Mely - 08/17/2020 13:53 EST Self Care/Home Management, OT Self Feeding Assist Level, OT : Supervision or set-up Grooming Assist Level, OT : Supervision or set-up Bathing Assist Level, OT : Assist, minimal Upper Body Dressing Assist Level, OT : Supervision or set-up Lower Body Dressing Assist Level, OT : Assist, minimal Toileting Assist Level : Assist, MARIAA Henry OTR/Mely - 08/17/2020 13:53 EST Functional Mobility Mobility Grid Supine to Sit : Rehab Minimal assistance Sit to Stand : Rehab Minimal assistance Bed to Chair : Rehab Minimal assistance Chair to Bed : Rehab Minimal assistance Stand to Sit : Rehab Minimal assistance MARIAA RUDD OTR/Mely - 08/17/2020 13:53 EST Cognition Assessment, OT Orientation : Oriented x 4 MARIAA RUDD OTR/L - 08/17/2020 13:53 EST Plan of Care, OT OT Tx Plan/Goals Established w Patient : No OT Treatments Planned : Activities of daily living, Functional mobility training, Therapeutic activities MARIAA RUDD OTR/L - 08/17/2020 13:53 EST Treatment Note Subjective Comment : Pt lethargic Patient's Response to Treatment : Pt tolerated evaluation well Additional Objective Information : Pt supine upon arrival. Pt min A supine to sit. Pt min A to complete dressing, reviewed AE, pt lethargic but verbalized understanding. Pt ambulated to bathroom and back with min A, min A for toileting. Pt left EOB with needs met, nsg present for dc instructions. Assessment : Pt to dc home today Plan for Treatment : Eval only BLAIRE, GABI LEROY/Mely - 08/17/2020 13:53 EST Pain Assessment Pain Score Pre-Intervention : 10 MARIAA RUDD OTR/Mely - 08/17/2020 13:53 EST Image 1 - Images currently included in the form version of this document have not been included in the text rendition version of the form. [place] OT Charges OT Selfcare/Hm Mgmt Ea 15 Min : 1 OT Eval Low Complexity : 1 MARIAA RUDD OTR/Mely - 08/17/2020 13:53 EST Electronically signed by Aelxander [facility] Conversion Veterinary Laboratory Technician Cerner at 01/23/2023 10:52 AM CDT documented in this encounter Plan of Treatment Not on file documented as of this encounter Visit Diagnoses Not on filedocumented in this encounter Care Teams Washing Machine Loader And Puller Relationship Specialty Start Date End Date Leo Dennis MD [address] [facility] [address] [place] [id number] PCP - General Family Medicine 01/20/24 documented as of this encounter
--- OUTSIDE RECORDS SUMMARY | 2025-04-12 13:07 | XMS_ITS | Encounter Summary ---
Author Organization [employer] ([place], [place], [place], [place]) Address [address] [place] [address] Care Team Providers Care Senior Principal Name Role Phone Leo Dennis MD Primary Care Provider [phone] Encounter Details Date Type Department Care Team (Late st Contact Info) Description 08/17/2020 Transcribed Document [facility] [address] [place] [address] Provider, lisa Blas MD Social [...] Miscellaneous Notes * Cerner Conversion Note - [facility] Wan ProviderMD - 08/17/2020 3:44 PM EST On Going Discharge Planning Entered On: 08/17/2020 14:44 EST Performed On: 08/17/2020 14:44 EST by LISA ONTIVEROS RN-Assistive Technology TrainerNurse Clinician Progress Note Discharge Arrangements : Patient Post-Acute Information Patient Name: HEMALATHA HASKINS Gender: Female : [birth year] Age: 75 Years No Post-Acute Placement(s) Listed No Post-Acute Service(s) Listed No [place] Referral(s) Listed Discharge Options Discussed with Patient : DME, Home Health Barriers to Discharge Unresolved : All resolved Designation of Choice Signed : Yes Patient Offered Choice/Affiliations Explained : Yes List/Info Provided Pt/Fam/Support Person : Durable medical equipment, Home health Were Referrals Sent to Post Acute Providers : Yes Does the Patient have a Floor to SNF Benefit? : No Physician Agreeable to Move Forward with D/C Plan? : Yes Did you Attend Multidisciplinary Rounds? : Yes LISA ONTIVEROS RN-Assistive Technology Trainer - 08/17/2020 14:44 EST documented in this encounter Plan of Treatment Not on file documented as of this encounter Visit Diagnoses Not on filedocumented in this encounter Care Teams Senior Principal Relationship Specialty Start Date End Date Leo Dennis MD [address] [facility] [address] [place] [phone] PCP - General Family Medicine 01/20/24 documented as of this encounter
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
--- OUTSIDE RECORDS SUMMARY | 2025-04-12 13:07 | XMS_ITS | Encounter Summary ---
Author Organization [employer] ([place], [place], [place], [place]) Address [address] [place] [address] Care Team Providers Care Skein Bleacher Name Role Phone Leo Dennis MD Primary Care Provider + [phone] Encounter Details Date Type Department Care Team (Late st Contact Info) Description 08/17/2020 Transcribed Document [facility] [address] [place] [address] Provider, [facility] Social History Tobacco Use Types Packs/Day Years Used Date Smoking Tobacco: Never Assessed Comments Unknown Sex and Gender Information Value Date Recorded Sex Assigned at Female 2022 8:47 PM CDT Legal Sex Female 8:47 PM CDT Gender Identity Female 2022 8:47 PM CDT Sexual Orientation Not on file documented as of this encounter Miscellaneous Notes * Cerner Conversion Note - [facility] ProviderMD - 08/17/2020 9:01 AM EST [facility] Main OR IntraOp Summary Primary Physician: TRACIE MUNOZ MD-ORT Finalized Date/Time: 08/19/20 10:13:39 Pt. Name: HEMALATHA CRABTREE/Sex: 1945 Female Med Rec #: [id number] Physician: TRACIE MUNOZ MD-ORT Financial #: [id number] Pt. Type: O Room/Bed: Admit/Disch: 08/17/20 05:46:00 - 08/17/20 12:00:00 Institution: [facility] IntraOp Case Attendance Entry 1 Entry 2 Entry 3 Case Attendee TRACIE MUNOZ OWENS, LARRY B, ASSOCIATE STORE DIRECTOR MICHAEL WALL, AMY ALVARADO-ORT Role Performed Surgeon/Proceduralist, ASSOCIATE STORE DIRECTOR/Nurse Farm Planner Agricultural Research Director, First First Time In 08/17/20 07:32:00 08/17/20 07:32:00 08/17/20 07:32:00 Time Out 08/17/20 09:09:00 08/17/20 09:09:00 08/17/20 09:09:00 Procedure Hip Total Anterior Hip Total Anterior Hip Total Anterior Approach(Left) Approach(Left) Approach(Left) Other Attendee Superficial Wound Closed By: Last Modified By: MAIK COCHRAN RN TAYLOR, MELISSA A, MAIK KENNEDY RN 08/17/20 09:17:54 08/17/20 09:17:54 08/17/20 09:17:54 Entry 4 Entry 5 Entry 6 Case Attendee MAIK COCHRAN, Armen Webber, Surgical OTHER, ATTENDEE Research Laboratory Technician Role Performed Desk Attendant, First Scrub, First Vendor Time In 08/17/20 07:32:00 08/17/20 07:32:00 08/17/20 07:32:00 Time Out 08/17/20 09:09:00 08/17/20 09:09:00 08/17/20 09:09:00 Procedure Hip Total Anterior Hip Total Anterior Hip Total Anterior Approach(Left) Approach(Left) Approach(Left) Other Attendee MICHAEL SAMAYOA Superficial Wound Closed By: Last Modified By: MAIK COCHRAN RN TAYLOR, MELISSA A, MAIK KENNEDY RN 08/17/20 09:17:54 08/17/20 09:17:54 08/17/20 09:17:54 Entry 7 Case Attendee MERCEDES BRITO MD-ANS Role Performed Anesthesiologist of Record Time In 08/17/20 07:32:00 Time Out 08/17/20 09:09:00 Procedure Hip Total Anterior Approach(Left) Other Attendee Superficial Wound Closed By: Last Modified By: MAIK COCHRAN RN 08/17/20 09:17:54 [facility] IntraOp Case Attendance Audit 08/17/20 09:17:54 Converting Technician: MAGNOLIA Modifier: SAMMIEME 1 <+> Time Out 1 <*> Procedure Hip Total Anterior Approach(Left) 2 <+> Time Out 2 <*> Procedure Hip Total Anterior Approach(Left) 3 <+> Time Out 3 <*> Procedure Hip Total Anterior Approach(Left) 4 <+> Time Out 4 <*> Procedure Hip Total Anterior Approach(Left) 5 <+> Time Out 5 <*> Procedure Hip Total Anterior Approach(Left) 6 <+> Time Out 6 <*> Procedure Hip Total Anterior Approach(Left) 7 <+> Time In 7 <+> Time Out 7 <*> Procedure Hip Total Anterior Approach(Left) 08/17/20 08:26:00 Converting Technician: MAGNOLIA Modifier: SAMMIEME 1 <+> Time In 1 <*> Procedure Hip Total Anterior Approach(Left) 2 <+> Time In 2 <*> Procedure Hip Total Anterior Approach(Left) 3 <+> Time In 3 <*> Procedure Hip Total Anterior Approach(Left) 4 <+> Time In 4 <*> Procedure Hip Total Anterior Approach(Left) 5 <+> Time In 5 <*> Procedure Hip Total Anterior Approach(Left) 6 <+> Time In 6 <*> Procedure Hip Total Anterior Approach(Left) <+> 7 Case Attendee <+> 7 Role Performed <+> 7 Procedure 08/17/20 07:05:02 Converting Technician: MAGNOLIA Modifier: SAMMIEME <+> 1 Procedure 2 <*> Procedure Hip Total Anterior Approach(Left) 3 <*> Procedure Hip Total Anterior Approach(Left) 4 <*> Procedure Hip Total Anterior Approach(Left) 5 <*> Procedure Hip Total Anterior Approach(Left) 6 <*> Procedure Hip Total Anterior Approach(Left) [facility] IntraOp Case Times Entry 1 Patient In Room Time 08/17/20 07:32:00 Out Room Time 08/17/20 09:09:00 Anesthesia Start Time 08/17/20 07:32:00 Stop Time 08/17/20 09:09:00 Surgery / Procedure Times Start Time 08/17/20 08:01:00 Stop Time 08/17/20 09:08:00 Last Modified By: MAIK COCHRAN RN 08/17/20 09:09:53 [facility] IntraOp Case Times Audit 08/17/20 09:09:53 Converting Technician: MAGNOLIA Modifier: SAMMIEME <+> 1 Out Room Time <+> 1 Stop Time <+> 1 Stop Time 08/17/20 08:02:42 Converting Technician: MAGNOLIA Modifier: SAMMIEME <+> 1 Start Time [facility] IntraOp Cautery Entry 1 ESU Identification Cautery Type Monopolar ESU ID Number [id number] ID Type Hospital Number Cautery Settings Cut Setting 50 Coag Setting 50 ESU Grounding Pad Ground Pad Type Adult Grounding Pad Site Right Lower Abdomen Grounding Pad MAIK COCHRAN RN Applied By Grounding Pad Site Intact, Warm, Dry Skin Condition Before Cautery Grounding Pad Site Unchanged Skin Condition After Cautery Last Modified By: MAIK COCHRAN RN 08/17/20 07:03:30 [facility] IntraOp Communication Entry 1 Entry 2 Communication To Family/Significant other Family/Significant other Comment START CLOSE Communication By MAIK COCHRAN RN TAYLOR, MELISSA A, RN Date and Time 08/17/20 08:06:00 08/17/20 09:01:00 Last Modified By: MAIK COCHRAN RN TAYLOR, MELISSA A, RN 08/17/20 08:08:24 08/17/20 09:01:09 [facility] IntraOp Communication Audit 08/17/20 09:01:09 Converting Technician: MAGNOLIA Modifier: MAGNOLIA <+> 2 Communication By <+> 2 Date and Time <+> 2 Communication To <+> 2 Comment [facility] IntraOp Counts Verification Entry 1 Procedure Hip Total Anterior Approach(Left) Count Info Count Type Sponge, Sharps, Miscellaneous Counts Verification Baseline/pre-procedure Sequence Count Results Not Applicable Counts Performed By Count Performed By Armen Armstrong, Surgical (Scrub) Research Laboratory Technician Count Performed By MAIK COCHRAN RN (RN) Last Modified By: MAIK COCHRAN RN 08/17/20 08:08:52 [facility] IntraOp Counts Final Entry 1 Procedure Hip Total Anterior Approach(Left) Final Count Info Count Type Sponge, Sharps, Miscellaneous Counts Verification Skin Closure/end of Sequence procedure Count Results Correct, surgeon notified Counts Performed By Count Performed By Armen Armstrong, Surgical (Scrub) Research Laboratory Technician Count Performed By MAIK COCHRAN, RN (RN) Last Modified By: MAIK COCHRAN RN 08/17/20 08:47:20 [facility] IntraOp Counts Final Audit 08/17/20 08:47:20 Converting Technician: MAGNOLIA Modifier: MAGNOLIA 1 <*> Procedure Hip Total Anterior Approach(Left) 1 <+> Count Performed By (Scrub) 1 <+> Count Performed By (RN) [facility] IntraOp Cultures and Spec Summary Entry 1 Cultrures and Specimens Specimen Ordered: Yes Test(s) Routine/Path-Lab Requested/Final Disposition Last Modified By: MAIK COCHRAN RN 08/17/20 07:03:07 [facility] IntraOp Departure from OR Entry 1 Integumentary Assessment Integumentary WDL Assessment WDL Transfer/Handoff Transfer to PACU Phase I Handoff Method Phone call Post-op Transport Stretcher/Gurney Via Patient Transport SAPPHIRE KAPLAN CRNA, Accompanied by MAIK COCHRAN RN Last Modified By: MAIK COCHRAN RN 08/17/20 08:09:27 [facility] IntraOp Dressing and Packing Entry 1 Type Dressing Location OPERATIVE SITE - LEFT HIP Wound Dressing Item Occlusive dressing, Skin Closure Glue Applied By MICHAEL WALL CSA Other Comments [employer], SKIN CLOSURE GLUE, COLD WRAP Last Modified By: MAIK COCHRAN RN 08/17/20 08:10:10 [facility] IntraOp Fire Risk Assessment Entry 1 Fire Info Surgical Site or 0- No Incision Above the Xyphoid Open O2 Source 0- No (Mask or Cannula) Available Ignition 1- Yes (ESU, Laser, Light Source) Fire Risk 1 Assessment Score Fire Score Fire Risk Yes Assessment Complete Fire Risk MAIK COCHRAN RN Assessment Verified By Fire Risk 08/17/20 08:10:00 Assessment Verified Date/Time Fire Risk Standard Fire Yes Safety Precautions Followed Last Modified By: MAIK COCHRAN RN 08/17/20 08:10:15 [facility] IntraOp Fire Risk Assessment Audit 08/17/20 08:10:15 Converting Technician: MAGNOLIA Modifier: MAGNOLIA <+> 1 Fire Risk Assessment Verified Date/Time [facility] IntraOp General Case Hockey Scout 1 Case Information OR OR 04 [facility] Case Level 1 Room Verified Yes Wound Class I - Clean Specialty SN Orthopedic Anesthesia Type General ASA Class 2 Diagnosis Preop Diagnosis LEFT HIP OSTEORARTHRITIS Postop Same As Preop No Postop Diagnosis SEE MD POST OP NOTES Last Modified By: MAIK COCHRAN RN 08/17/20 08:10:22 [facility] IntraOp General Case Data Audit 08/17/20 08:10:22 Converting Technician: MAGNOLIA Modifier: MAGNOLIA <+> 1 ASA Class [facility] IntraOp Implant Log Entry 1 Entry 2 Entry 3 Type Implant (Synthetic) Implant (Synthetic) Implant (Synthetic) Implant Log Implant Type Hardware Hardware Hardware Tissue Implant Type Implant BIT DRILL 3.3X25MM TRIDENT ACEL CLUSTER SCR LOW PROFILE Identification [id number] Description Implant Quantity 1 1 1 Implant Site LEFT HIP LEFT HIP LEFT HIP Implant Identification Model Number Implant Identification Serial Number Implant [id number] Identification Lot Number Implant Memo:Memo Memo Ortho Cap Memo:[place] Identification Orthopaedics Orthopaedics Tricot Knitting Machine Operator Name: Implant [id number] Identification Catalog Number Implant Size Implant Has an Yes Yes Yes Expiration Date Implant Expiration 02/10/24 05/16/25 05/12/25 Date Wasted Radioactive Material Time Implanted Tissue Implant Continue for Tissue Implant Documentation Tissue Identification Number Graft Prep Per Tricot Knitting Machine Operator Instructions: Tissue Preparation Method: Reconstitution Solution: Reconstitution Solution Lot Number Reconstitution Solution Expiration Date: Thawing Solution Thawing Solution Lot Number Thawing Solution Expiration Date Preparation Materials, Other Preparation Materials, Other Lot Number Preparation Materials, Other Expiration Date Tissue Prepared/Processed By Tricot Knitting Machine Operator Paperwork Completed Implant Type Comment Last Modified By: MAIK COCHRAN RN TAYLOR, MELISSA A, RN TAYLOR, MELISSA A, RN 08/17/20 08:27:41 08/17/20 08:27:41 08/17/20 08:29:48 Entry 4 Entry 5 Entry 6 Type Implant (Synthetic) Implant (Synthetic) Implant (Synthetic) Implant Log Implant Type Hardware Hardware Hardware Tissue Implant Type Implant SCR LOW PROFILE HIP STEM ACCOLADE II HEAD FEM 36MM BIOLOX Identification [id number] Description Implant Quantity 1 1 1 Implant Site LEFT HIP LEFT HIP LEFT HIP Implant Identification Model Number Implant Identification Serial Number Implant [id number] Identification Lot Number Implant Memo:Memo Memo:Memo Memo:Memo Identification Orthopaedics Orthopaedics Orthopaedics Tricot Knitting Machine Operator Name: Implant [id number] Identification Catalog Number Implant Size Implant Has an Yes Yes Yes Expiration Date Implant Expiration 11/03/24 06/20/25 06/02/25 Date Wasted Radioactive Material Time Implanted Tissue Implant Continue for Tissue Implant Documentation Tissue Identification Number Graft Prep Per Tricot Knitting Machine Operator Instructions: Tissue Preparation Method: Reconstitution Solution: Reconstitution Solution Lot Number Reconstitution Solution Expiration Date: Thawing Solution Thawing Solution Lot Number Thawing Solution Expiration Date Preparation Materials, Other Preparation Materials, Other Lot Number Preparation Materials, Other Expiration Date Tissue Prepared/Processed By Tricot Knitting Machine Operator Paperwork Completed Implant Type Comment Last Modified By: MAIK COCHRAN RN TAYLOR, MELISSA A, RN TAYLOR, MELISSA A, RN 08/17/20 08:29:48 08/17/20 08:45:04 08/17/20 08:45:04 [facility] IntraOp Implant Log Audit 08/17/20 08:45:04 Converting Technician: MAGNOLIA Modifier: MAGNOLIA <+> 5 Implant Identification Description <+> 5 Implant Identification Lot Number <+> 5 Implant Identification Tricot Knitting Machine Operator Name: <+> 5 Implant Expiration Date <+> 5 Implant Identification Catalog Number <+> 6 Implant Identification Description <+> 6 Implant Identification Lot Number <+> 6 Implant Identification Tricot Knitting Machine Operator Name: <+> 6 Implant Expiration Date <+> 6 Implant Site <+> 6 Implant Quantity <+> 6 Implant Identification Catalog Number <+> 6 Implant Type <+> 6 Implant Has an Expiration Date <+> 6 Type 08/17/20 08:29:48 Converting Technician: MAGNOLIA Modifier: MAGNOLIA <+> 3 Implant Identification Description <+> 3 Implant Identification Lot Number <+> 3 Implant Identification Tricot Knitting Machine Operator Name: <+> 3 Implant Expiration Date <+> 3 Implant Identification Catalog Number <+> 4 Implant Identification Description <+> 4 Implant Identification Lot Number <+> 4 Implant Identification Tricot Knitting Machine Operator Name: <+> 4 Implant Expiration Date <+> 4 Implant Identification Catalog Number 08/17/20 08:27:41 Converting Technician: MAGNOLIA Modifier: MAGNOLIA <+> 1 Implant Identification Description <+> 1 Implant Identification Lot Number <+> 1 Implant Identification Tricot Knitting Machine Operator Name: <+> 1 Implant Expiration Date <+> 1 Implant Identification Catalog Number <+> 2 Implant Identification Description <+> 2 Implant Identification Lot Number <+> 2 Implant Identification Tricot Knitting Machine Operator Name: <+> 2 Implant Expiration Date <+> 2 Implant Identification Catalog Number 08/17/20 08:19:40 Converting Technician: MAGNOLIA Modifier: SAMMIEME <+> 5 Implant Site <+> 5 Implant Quantity <+> 5 Implant Type <+> 5 Implant Has an Expiration Date <+> 5 Type [facility] IntraOp Intraoperative Assessment Entry 1 Handoff Method Bedside/Face to face, Online nursing summary Valid History / Yes Physical in Chart Preoperative Yes Checklist Reviewed/Evaluated Allergies Reviewed Yes Patient is Latex No Sensitive Isolation Not applicable Precautions Noted Level of WDL Consciousness (WDL = Alert, Oriented to Person, Place, and Time) Skin Assessment Yes Verified Present Upon IVs Arrival to OR Last Modified By: MAIK COCHRAN RN 08/17/20 08:10:40 [facility] IntraOp Intraoperative Assessment Audit 08/17/20 08:10:40 Converting Technician: SAMMIE Modifier: SAMMIEME <+> 1 Patient is Latex Sensitive <+> 1 Isolation Precautions Noted <+> 1 Present Upon Arrival to OR [facility] IntraOp Intraoperative Equipment Entry 1 Equipment Intraop Monitoring Electrocardiogram Three lead placement (ECG) Electrode Placement Blood Pressure Non-Invasive BP Device Source Blood Pressure Arm, right upper Location Pulse Oximeter Hand, left Probe Site Antiembolic Devices Scopes Photo/Video Documentation Last Modified By: MAIK COCHRAN RN 08/17/20 07:05:38 [facility] IntraOp Medication Admin Entry 1 Entry 2 Entry 3 Medication/Irrigant Bacitracin 50,000units SEALR AQUAMANTYS BIPLR vancomycin 1Gm vial - powder vial [id number] Combo Med List 1 - Combo Med Time Administered Route of ADDED TO IRRIGATION TOPICAL TO OPSITE Administration Dose Dose 21223 1 Unit of Measure units gram Volume IN 2000MLS OF NACL Administered By TRACIE MUNOZ, TRACIE MUNOZ KARTHIKEYAN, THARUN, MD-ORT -ORT -ORT Procedure Irrigation Irrigant Volume In Irrigant Volume Out Last Modified By: MAIK COCHRAN RN TAYLOR, MELISSA A, RN TAYLOR, MELISSA A, RN 08/17/20 08:13:48 08/17/20 08:13:48 08/17/20 08:13:48 Entry 4 Medication/Irrigant NS 0.9% 50ml injection - [id number] Combo Med List Time Administered Route of MIXED WITH BACITRACIN Administration Dose Dose 10 Unit of Measure ml Volume Administered By TRACIE MUNOZ MD-ORT Procedure Irrigation Irrigant Volume In Irrigant Volume Out Last Modified By: MAIK COCHRAN RN 08/17/20 08:13:48 General Comments: 20ML TRANEXAMIC ACID ON STERILE FIELD - SEE PHARMACY NOTES PAIN INJECTION ON STERILE FIELD - SEE PHARMACY NOTES 20MLS OF BETADINE SOLUTION IN 500MLS OF NACL FOR IRRIGATION FOR IRRIGATION [facility] IntraOp Patient Positioning Entry 1 Procedure Hip Total Anterior Approach(Left) Body Position Supine Left Arm Position Secured on padded arm board Right Arm Position Secured on padded arm board Left Leg Position Secured in Leg Rees Right Leg Position Secured in Leg Rees Feet Uncrossed Yes Pressure Points Yes Checked Positioning Devices Arm Board, Head Rest, Pad, Arm, Safety Strap, Arm(s), Stirrups/Leg Rees, Boot, Pad, Elbow Device Position hana table Positioned By MAIK COCHRAN, JIA, MICHAEL WALL, AMY, TRACIE MUNOZ MD-ORT, SAPPHIRE KAPLAN, JOMAR, Armen Armstrong, Rn Physician Office Position Verified Positioning Yes Verified by Anesthesia Positioning Yes Verified by Surgeon Last Modified By: MAIK COCHRAN RN 08/17/20 07:05:00 [facility] IntraOp Sign In Entry 1 Patient, Site, Yes Procedure Identified Surgical Consent Yes Confirmed Relevant Surgical Yes Documents Available Surgical Site Yes Marked by person performing procedure Anesthesia Machine Yes Check Completed Medication Checks Yes Completed Allergies Yes Airway Difficult Yes Airway/Aspiration Risk Difficult Yes Airway/Aspiration Intervention Equipment Available Blood Loss Risk Yes Blood Loss Yes Intervention Equipment Prepared and Ready Blood Identifiers Not applicable Verified Per Policy Hypothermia Risk Yes Warming Measures Yes Taken Last Modified By: MAIK COCHRAN RN 08/17/20 07:04:12 [facility] IntraOp Sign Out Entry 1 RN Confirmation Surgical Yes Procedure(s) Identified Instrument, Sponge Yes and Sharps Counts Correct/Documented Equipment Problems N/A Documented Specimen Labeled Yes Correctly Urinary Catheter N/A Documented in IView Azul Patient Yes Recovery Concerns Reviewed with Anesthesia Provider, Surgeon and RN Azul Patient Yes Management Concerns Reviewed with Anesthesia Provider, Surgeon and RN Safety Checklist Yes Elements Complete? RN Sign Out MAIK COCHRAN RN Signature RN Sign Out 08/17/20 09:09:00 Signature Date/Time Plan of Care Outcome - Fire Risk OUTCOME STATEMENT: Goal met Patient is free from injury related to surgical fire Plan of Care Outcome - Pt Positioning OUTCOME STATEMENT: Goal met Absence of signs and symptoms of positioning injury. Plan of Care Outcome - Skin Prep OUTCOME STATEMENT: Goal met Intraoperative care is consistent with measures to prevent infection Plan of Care Outcome - Xray/Images OUTCOME STATEMENT: Goal met Absence of observable signs or symptoms of radiation injury Plan of Care Outcome - Counts OUTCOME STATEMENT: Goal met Absence of signs and symptoms of injury related to extraneous objects Last Modified By: MAIK COCHRAN RN 08/17/20 09:17:48 [facility] IntraOp Sign Out Audit 08/17/20 09:17:48 Converting Technician: MAGNOLIA Modifier: MAGNOLIA <+> 1 RN Sign Out Signature Date/Time [facility] IntraOp Skin Prep Entry 1 Procedure Hip Total Anterior Approach(Left) Prescribed Yes Pre-Surgical Prep Completed Prep Area OPERATIVE HIP TO KNEE - LEFT HIP Intraop Prep Integumentary WDL Assessment WDL Prep Agents Alcohol, Chloraprep, DuraPrep, Chlorhexadine gluconate Prep by MAIK COCHRAN RN Hair Removal Methods No hair removal performed Last Modified By: MAIK COCHRAN RN 08/17/20 07:04:33 [facility] IntraOp Surgical Procedures Entry 1 Procedure Hip Total Anterior Approach Modifiers Left Additional (LT DIRECT ANTERIOR Procedure TOTAL HIP ARTHROPLASTY) Description Primary Procedure Yes Primary Surgeon TRACIE MUNOZ MD-ORT Start 08/17/20 08:01:00 Stop 08/17/20 09:08:00 Anesthesia Type General Specialty SN Orthopedic Wound Class I - Clean Last Modified By: MAIK COCHRAN RN 08/17/20 09:17:55 [facility] IntraOp Surgical Procedures Audit 08/17/20 09:17:55 Converting Technician: MAGNOLIA Modifier: MAGNOLIA <+> 1 Stop 08/17/20 08:10:10 Converting Technician: MAGNOLIA Modifier: MAGNOLIA <+> 1 Start [facility] IntraOp Temp Regulation Devices Entry 1 Temp Regulation Temperature Forced Air Warming Regulation Device device, Warm blankets Temperature Upper body Regulation Site Temperature Device 43 DEGREES CELCIUS Setting Temperature SAPPHIRE KAPLAN ASSOCIATE STORE DIRECTOR Regulation Device Applied by Last Modified By: MAIK COCHRAN RN 08/17/20 07:03:40 [facility] IntraOP Time Out Entry 1 Procedure to be Hip Total Anterior Performed Approach(Left) Time Out Time Out Pause Time 08/17/20 08:01:00 All activity Yes suspended (unless life threatening emergency) Team Verbally Correct patient Confirms Information identity, Correct side and site are marked, Consent form is present and accurate, Agreement on the procedure to be done, Correct patient position, Relevant images/results properly labeled/appropriately displayed, Confirm antibiotics have been administered, Confirm the skin prep has dried, Confirm prosthesis/implant/devic e is present, Performed in location of procedure after prepped/draped, Performed before each procedure if multiple procedures, Reconcile problems if responses among team members differ Antibiotic Yes Prophylaxis Administered Or In Progress Within the Last 60 Minutes Beta More N/A Administered Venous N/A Thromboembolism Prophylaxis Required Anticipated Critical Events Surgeon None expected Anesthesia Provider None expected Nursing Assures Sterility of instruments, Equipment concerns or issues Essential Imaging Yes Labeled and Displayed Last Modified By: MAIK COCHRAN RN 08/17/20 08:01:36 [facility] IntraOP Time Out Audit 08/17/20 08:01:36 Converting Technician: MAGNOLIA Modifier: MAGNOLIA 1 <+> Time Out Pause Time 1 <*> Procedure to be Performed Hip Total Anterior Approach(Left) [facility] IntraOp X-Ray and Images Entry 1 X-Ray/Imaging Type Fluoroscopy Fluoroscopy Type C-Arm Site OPERATIVE HIP Protective Devices No Used Last Modified By: MAIK COCHRAN RN 08/17/20 08:08:33 Case Comments <None> Finalized By: AUSTYN MOORE Document Signatures Signed By: MAIK COCHRAN RN 08/17/20 09:18 AUSTYN MOORE 08/19/20 10:13 Unfinalized History Date/Time Username Reason for Unfinalizing Freetext Reason for Unfinalizing 08/19/20 10:08 TAYLOR Correct Billing documented in this encounter Plan of Treatment Not on file documented as of this encounter Visit Diagnoses Not on filedocumented in this encounter Care Teams Skein Bleacher Relationship Specialty Start Date End Date Leo Dennis MD [address] [place] [facility] [address] [place] [id number] PCP - General Family Medicine 01/20/24 documented as of this encounter
--- OUTSIDE RECORDS SUMMARY | 2025-04-12 13:07 | XMS_ITS | Encounter Summary ---
Author Organization [employer] ([place], [place], [place], [place]) Address [address] [place] [address] Care Team Providers Care Chiropractor Assistant Name Role Phone Leo Dennis MD Primary Care Provider + [phone] Encounter Details Date Type Department Care Team (Late st Contact Info) Description 08/17/2020 Transcribed Document [facility] Radiology 1 [place] [address] Provider, lisa Blas MD Social [...] Cerner Conversion Note - [facility] Wan ProviderMD - 08/17/2020 9:59 AM EST Pain Assessment Entered On: 08/17/2020 9:43 EST Performed On: 08/17/2020 10:06 EST by JOCELYN WALLACE RN Intervention Information: fentaNYL Performed by JOCELYN WALLACE RN on 08/17/2020 09:36:00 EST fentaNYL,25mcg IV Push,Left Hand,Pain (Moderate 4-6) Pain Assessment Pain Assessment : Follow-up assessment Pain Scale Goal : 4 Pain Scale Used : 0-10 Scale Location : Hip, left Onset : Awoke with pain Quality : Burning Pain Radiation : No Pain Worsened by : Movement Pain Improved by : Repositioning Pain Intervention, Drug : Medicated, Oxygen Pain Improved by Intervention : Yes JOCELYN WALLACE RN - 08/17/2020 9:42 EST Pain Scale Intensity : 5 JOCELYN WALLACE RN - 08/17/2020 9:42 EST Image 4 - Images currently included in the form version of this document have not been included in the text rendition version of the form. Electronically signed by Alexander, [facility] Conversion Watch Crystal Edge Grinder Cerner at 01/23/2023 10:52 AM CDT documented in this encounter Plan of Treatment Not on file documented as of this encounter Visit Diagnoses Not on filedocumented in this encounter Care Teams Chiropractor Assistant Relationship Specialty Start Date End Date Leo Dennis MD [address] [place] [facility] [address] [place] [address] PCP - General Family Medicine 01/20/24 documented as of this encounter
--- OUTSIDE RECORDS SUMMARY | 2025-04-12 13:07 | XMS_ITS | Encounter Summary ---
Author Organization [employer] ([place], [place], [place], [place]) Address [address] [place] [address] Care Team Providers Care Chief Informatics Officer Name Role Phone Leo Dennis MD Primary Care Provider [phone] Encounter Details Date Type Department Care Team (Late st Contact Info) Description 08/02/2020 Transcribed Document [facility] 1 [place] [address] Provider, lisa Blas MD Social [...] Miscellaneous Notes * Cerner Conversion Note - [facility] Wan ProviderMD - 08/02/2020 2:34 PM EST PAT Adult Entered On: 08/02/2020 13:44 EST Performed On: 08/02/2020 13:34 EST by AMINA VENTURA RN Vital Measurements Temperature Source : Temporal artery scanning Temperature Mode : Fahrenheit Temperature, Fahrenheit : 97.4 Deg F Clinical Temperature, C : 36.3 Deg C Pulse Method : Palpation Pulse Source : Radial, Right Peripheral Pulse Rate : 64 bpm Pulse Rhythm : Regular Respiratory Rate : 18 Breaths/Min Blood Pressure Source : Non-Invasive BP Device Blood Pressure Position : Sitting Systolic Blood Pressure : 159 mmHg (HI) Diastolic Blood Pressure : 92 mmHg (HI) Oxygen Saturation : 99 % Oxygen Therapy Mode : Room air AMINA VENTURA RN - 08/02/2020 13:34 EST Height and Weight, Clinical Dosing Height Source : Measured Height Entry Format : Mascot Height, Feet : 5 ft(Converted to: 152 cm, 60 Inch) Height, Inches : 4 Inch(Converted to: 0 ft 4 Inch, 10.16 cm) Clinical Height : 162.56 cm Weight Source : Standing scale Weight Entry Format : Mascot Clinical Dosing Weight : 79.09 kg Weight, Pounds : 174 lb Body Surface Area (BSA) : 1.85 m2 Body Mass Index : 29.9 kg/m2 (HI) Mcgrew Body Weight : 54 kg AMINA VENTURA RN - 08/02/2020 13:34 EST Health Histories Smoking Status : Former smoker, quit more than 30 days ago Smokeless Tobacco Status : Never AMINA VENTURA RN - 08/02/2020 13:34 EST Social History (As Of: 08/02/2020 13:44:54 EST) Tobacco: Former smoker, quit more than 30 days ago Smoking Status. Never Smokeless Tobacco Status. (Last Updated: 08/02/2020 13:37:45 EST by AMINA VENTURA RN) Alcohol: Alcohol Use History Yes. Use in Last 12 Months: Yes. Alcohol Use Frequency Socially. (Last Updated: 08/02/2020 13:39:02 EST by AMINA VENTURA RN) Substance Abuse: Drug Use Hx: No. Use in Last 12 Months: No. (Last Updated: 08/02/2020 13:39:07 EST by AMINA VENTURA RN) Infectious Disease History Has the patient ever been tested for COVID-19? : Yes, Patient stated results Negative Date of COVID-19 test known? : Yes Date of COVID-19 Test : 08/15/2020 EST Does patient have symptoms of COVID-19? : No COVID19 Screening : No Experiencing Infectious Disease Symptoms : No symptoms Physical contact outside [place] in the last 30 days : No Infectious Disease History : Chicken pox/Shingles, Measles, Mumps Exposure to Contagious Illness : No Tuberculosis Symptoms : None MARTA Tolbert RN - 08/17/2020 6:29 EST COVID19 PreProcedure Screening Date PreProcedure COVID-19 test known? : Yes Date of PreProcedure COVID-19 : 08/15/2020 EST Has patient been isolated since the test : Yes Exposed to COVID19 symptoms since test? : No MARTA Tolbert RN - 08/17/2020 6:29 EST Is this an Emergent or Add on Procedure? : No AMINA VENTURA RN - 08/02/2020 13:34 EST Anesthesia/Transfusion History Family History of Anesthesia Reaction : No prior transfusion(s) Blood Transfusion Acceptable to Patient : Yes Transfusion History : Prior anesthesia without reaction Family History of Anesthesia Reaction : None AMINA VENTURA RN - 08/02/2020 13:34 EST Functional Assessment Functional ADL Evaluation Index EBN Bathing : Independent (2) Dressing : Independent (2) Toileting : Independent (2) Transferring Bed or Chair : Independent (2) Continence : Independent (2) Feeding : Independent (2) AMINA VENTURA RN - 08/02/2020 13:34 EST ADL Index Score : 12 AMINA VENTURA RN - 08/02/2020 13:34 EST Advance Directive Patient has Advance Directive *Q : Yes, Advance Directive on file Advance Directive Type : Living will Copy Advance Directive Verified/on Chart : Yes AMINA VENTURA RN - 08/02/2020 13:34 EST [place] Suicide Severity Rating Scale (C-SSRS) CSSRS Past Month Wish to be : No CSSRS Past Month Suicidal Thoughts : No CSSRS Lifetime Suicide Behavior : No Suicide Severity Rating Score : 0 Suicide Severity Rating : No Additional Care Required at this time AMINA VENTURA RN - 08/02/2020 13:34 EST Psychosocial History Do You Have a History of the Following? : Depression Currently in Unsafe Situation : No AMINA VENTURA RN - 08/02/2020 13:34 EST General Info Preferred Name : Hemalatha Arrived From : Home Mode of Arrival on Unit : Wheelchair Legal Guardian : Unaccompanied MARTA Tolbert RN - 08/17/2020 6:29 EST Want Family/Rep/Phys Notified of Admit : No Emergency Contact #1 : fam Emergency Contact #1 Emergency Contact #1 Relationship : daughter Emergency Contact #2 : , Emergency Contact #2 Phone Number : , Emergency Contact #2 Relationship : , Primary Language : Anguillan Communication Barrier : None Civil Structural Designer Needed : No AMINA VENTURA RN - 08/02/2020 13:34 EST Liborio Scale Liborio Sensory Perception : Slightly limited Liborio Moisture : Rarely moist Liborio Activity : Walks occasionally Liborio Mobility : Slightly limited Liborio Nutrition : Adequate Liborio Friction and Shear : Potential problem Liborio Score : 18 AMINA VENTURA RN - 08/02/2020 13:34 EST Sleep Apnea Risk Assmt Hx of Obstructive Sleep Apnea Diagnosis : No Snore Loudly : No Tired, Fatigued, or Sleepy During Day : No Observed Stopping Breathing During Sleep : No Have/Are Being Treated for Hypertension : No BMI Greater Than 35 kg/m2 : Yes Age over 50 Years Old : Yes Neck Circumference Greater Than 40 cm : No Gender Male : No STOP-BANG Sleep Apnea Risk Level Score : 2 AMINA VENTURA RN - 08/02/2020 13:34 EST Electronically signed by [facility], [facility] Conversion World Travel Counselor Cerner at 01/23/2023 10:52 AM CDT documented in this encounter Plan of Treatment Not on file documented as of this encounter Visit Diagnoses Not on filedocumented in this encounter Care Teams Chief Informatics Officer Relationship Specialty Start Date End Date Leo Dennis MD [address] [place] [facility] [address] [place] [address] PCP - General Family Medicine 01/20/24 documented as of this encounter
--- OUTSIDE RECORDS SUMMARY | 2025-04-12 13:07 | XMS_ITS | Clinical Summary ---
Author Organization Healthcare Address [address] [id number] Care Team Providers Care Accountant Auditor Name Role Phone Leo Dennis MD Primary Care Provider Encounters Date Type Department Care Team Description 02/05/2025 Telephone [facility] [address] [facility], [address] [place] [address] Neurology, Physician, from Last 3 Months Family History Medical History Relation Name Comments Other cancer Father Other cancer Mother Other cancer Other Relation Name Status Comments Father Mother Other Social History Tobacco Use Types Packs/Day Years Used Date Smoking Tobacco: Former Alcohol Use Standard Drinks/Week Comments Yes 0 (1 standard drink = 0.6 oz pure alcohol) Alcoholic Drinks/day: Social alcohol use Comments Unknown Sex and Gender Information Value Date Recorded Sex Assigned at Not on file Legal Sex Female 6:41 PM EDT Gender Identity Not on file Sexual Orientation Not on file Last Filed Vital Signs Vital Sign Reading Time Taken Comments Blood Pressure - - Pulse - - Temperature - - Respiratory Rate - - Oxygen Saturation - - Inhaled Oxygen Concentration - - Weight 77.1 kg (170 lb) 06/15/2015 9:10 AM EDT Height 161.3 cm (5' 3.5 ) 06/15/2015 9:10 AM EDT Body Mass Index 29.64 06/15/2015 9:10 AM EDT Plan of Treatment Upcoming Encounters Date Type Department Care Team (Late st Contact Info) Description 07/20/2025 2:30 PM EST Consult [facility] [address], [address] [place] [address] Daniele aT MD [address] [place] [address] Health Maintenance Due Date Last Done Comments [facility]-Bone Density Scan 1945 [facility]-Depression Screening 1945 [facility]-Infant/Child/Adol SDOH Screenings 1945 [facility]- SDOH Screenings 1965 [facility]-Adult SDOH Screenings 1965 [facility]-DTaP,Tdap,and Td Vaccines (1 - Tdap) 1966 [facility]-Pneumococcal Vaccine: 50+ Years (1 of 1 - PCV) 1997 [facility]-Zoster Vaccines (1 of 2) 1997 [id number]-GYRPM-77 Vaccine ( season) 2024 05/28/2024, 06/05/2023, 06/29/2022, Additional history exists [facility]-Influenza Vaccine (#1) 05/03/202505/10, 05/16/2022, 05/10/2021, Additional history exists [facility]-RSV Vaccine: 60+ Years or Completed 12/16/2023 HPV Vaccines Aged Out No longer eligi ble based on patient's age to complete this topic [facility]-HIB Vaccines Aged Out No longer e ligible based on patient's age to complete this topic [facility]-Hepatitis A Vaccines Aged Out No longer eligible based on patient's age to complete this topic [facility]-IPV Vaccines Aged Out No longer e ligible based on patient's age to complete this topic [facility]-Rotavirus Vaccines Aged Out No lo nger eligible based on patient's age to complete this topic Care Teams Accountant Auditor Relationship Specialty Start Date End Date Leo Dennis MD [address] [place] [address] PCP - General 01/13/21
--- OUTSIDE RECORDS SUMMARY | 2025-04-12 13:07 | XMS_ITS | Encounter Summary ---
Author Organization [employer] ([place], [place], [place], [place]) Address [address] [place] [address] Care Team Providers Care Truck Striker Name Role Phone Leo Dennis MD Primary Care Provider + [phone] Encounter Details Date Type Department Care Team (Late st Contact Info) Description 08/17/2020 Transcribed Document [facility] 1 [place] [address] Provider, Justino Blas MD Social History Tobacco Use Types Packs/Day Years Used Date Smoking Tobacco: Never Assessed Comments Unknown Sex and Gender Information Value Date Recorded Sex Assigned at Female 2022 8:47 PM CDT Legal Sex Female 8:47 PM CDT Gender Identity Female 2022 8:47 PM CDT Sexual Orientation Not on file documented as of this encounter Miscellaneous Notes * Cerner Conversion Note - [facility] Wan ProviderMD - 08/17/2020 10:25 AM EST Patient Education Materials Follows: Discharge Instructions for Anterior Total Hip Replacement [...] before and after changing the dressing. Activity: ?? You may put weight on your leg when you walk, unless your surgeon tells you not differently. Use your walker until the therapist or surgeon say you do not need it anymore. Continue your exercises from physical therapy. ?? Stay active, getting up every 1-2 hours, walk short distances, and increase how far you walk a little each week. No driving until cleared by your surgeon. ?? If your surgeon has ordered support hose, continue to wear them for 6 weeks in order to prevent blood clots. Remove them 1-2 times per day for about 30 minutes-1 hour. Check your skin for red or open areas under stockings. Thigh-high support hose can be bought online and at many pharmacies, be sure that compression is 15-20mmHg. ?? For swelling, prop up your leg above your heart. Apply cold therapy, 30 minutes on 30 minutes off with cloth or clothing between cold wrap and skin. General Instructions: ?? Increase fiber and protein intake. Drink 8-10 [...] your home health nurse or surgeon office. ?? Continue using your incentive spirometer to keep fever and lung infection away. Aim for 10 breaths every hour while you are awake. ?? Take pain medicine as needed, especially before therapy. ?? Let your doctors and dentist know you [...] or pain in your calf. A Fall: ?? You fall down, but don???t have an obvious injury. Call 911: Sudden shortness of breath and/or chest pain You fall down and cannot get up Stroke signs and symptoms: Facial droop, uneven smile, arm numbness, arm weakness, slurred speech, difficulty speaking or understanding Last Revised October 2016 CALL FIRST! Unless you are experiencing life-threatening issues, call your surgeon's office or nurse navigator first, before going to the Emergency Department. Call your surgeon or nurse navigator if: ?? Your incision has increased swelling that does not get better with time, rest, and propping up your leg ?? Your incision has a foul smell or begins to open ?? You have a large amount of bleeding from incision ?? Your incision gets red, warm or increased drainage after 2 days ?? You have a fever over 101 degrees for more than 24 hours ?? You have increased swelling, redness, warmth or pain in your calf ?? You fall, but don't have an obvious injury ?? You have questions or cause for concern regarding your total joint replacement Call 911 if: ?? You have sudden chest pain or shortness of breath ?? You fall and cannot get up ?? Life-threatening signs or symptoms ?? Stroke signs and symptoms: Facial droop, uneven smile, arm numbness, arm weakness, slurred speech, difficulty speaking or understanding If you are a patient of Dr. Regalado or Dr. Wilkerson, call [phone] If you are a patient of Dr. Pedroza, call [phone] Nurse Navigator: Kiara Dickson Office: [phone]; ; available during regular business hours documented in this encounter Plan of Treatment Not on file documented as of this encounter Visit Diagnoses Not on filedocumented in this encounter Care Teams Truck Striker Relationship Specialty Start Date End Date Leo Dennis MD [address] [facility] [address] [place] [address] PCP - General Family Medicine 01/20/24 documented as of this encounter
--- OUTSIDE RECORDS SUMMARY | 2025-04-12 13:07 | XMS_ITS | Encounter Summary ---
Author Organization [employer] ([place], [place], [place], [place]) Address [address] [place] [address] Care Team Providers Care Director Clinical Data Name Role Phone Leo Dennis MD Primary Care Provider + [phone] Encounter Details Date Type Department Care Team (Late st Contact Info) Description 08/17/2020 Transcribed Document [facility] 1 [place] [address] Provider, [facility] MD Wan Social History Tobacco Use Types Packs/Day Years Used Date Smoking Tobacco: Never Assessed Comments Unknown Sex and Gender Information Value Date Recorded Sex Assigned at Female 2022 8:47 PM CDT Legal Sex Female 8:47 PM CDT Gender Identity Female 2022 8:47 PM CDT Sexual Orientation Not on file documented as of this encounter Miscellaneous Notes * Cerner Conversion Note - [facility] Wan ProviderMD - 08/17/2020 9:01 AM EST [facility] Main OR PostOp Summary Primary Physician: TRACIE MUNOZ MD-ORT Finalized Date/Time: 08/17/20 12:11:45 Pt. Name: HEMALATHA HASKINS/Sex: 1945 Female Med Rec #: [id number] Physician: TRACIE MUNOZ MD-ORT Financial #: [id number] Pt. Type: O Room/Bed: Admit/Disch: 08/17/20 05:46:00 - Institution: [facility] Main OR PostOp Case Times Entry 1 In PACU II 08/17/20 10:54:00 Ready for PACU II 08/17/20 11:30:00 Discharge Discharge from PACU 08/17/20 12:00:00 II Last Modified By: Tonia Veronica RN 08/17/20 12:11:44 Finalized By: Tonia Veronica, RN Document Signatures Signed By: Tonia Veronica RN 08/17/20 12:11 Electronically signed by [facility] Conversion Mobile Mechanic Cerner at 01/23/2023 10:52 AM CDT documented in this encounter Plan of Treatment Not on file documented as of this encounter Visit Diagnoses Not on filedocumented in this encounter Care Teams Director Clinical Data Relationship Specialty Start Date End Date Leo Dennis MD [address] [facility] [address] [place] [address] PCP - General Family Medicine 01/20/24 documented as of this encounter
--- OUTSIDE RECORDS SUMMARY | 2025-04-12 13:07 | XMS_ITS | Encounter Summary ---
Author Organization [employer] ([place], [place], [place], [place]) Address [address] [place] [address] Care Team Providers Care Emergency Medical Technician Basic Name Role Phone Leo Dennis MD Primary Care Provider + [phone] Encounter Details Date Type Department Care Team (Late st Contact Info) Description 07/04/2020 Transcribed Document [facility] Radiology 1 [place] [address] Provider, lisa Blas MD Social [...] Miscellaneous Notes * Cerner Conversion Note - [facility] Wan ProviderMD - 07/04/2020 6:00 PM EST Total Joints Assessment Entered On: 09/07/2020 17:01 EST Performed On: 07/04/2020 17:00 EST by Emilia Dickson RN-Navigator JR. BOBBY Hip Survey 1. Going up or down stairs : Extreme 2. Walking on an uneven surface : Extreme 3. Rising from sitting : Severe 4. Bending to floor/shrimp picker an object : Severe 5. Lying in bed (turning over, maintaining hip position) : Moderate 6. Sitting : Moderate BOBBY BERGER Raw Score (ref) : 18 Emilia Dickson RN-Navigator - 09/07/2020 17:00 EST PROMIS Global Health Scale In general, would you say your health is: : Very good In general, would you say your quality of life is: : Very good In general, how would you rate your physical health? : Very good In general, how would you rate your mental health, including your mood and your ability to think? : Very good In general, how would you rate your satisfaction with your social activities and relationships? : Very good In general, please rate how well you carry out your usual social activities and roles. (This includes activities at home, at work and in your community, and responsibilities as a parent, child, spouse, employee, friend, etc.) : Very good To what extent are you able to carry out your everyday physical activities such as walking, climbing stairs, carrying groceries, or moving a chair? : A little How often have you been bothered by emotional problems such as feeling anxious, depressed or irritable? : Sometimes How would you rate your fatigue on average? : Mild How would you rate your pain on average? : 9 Global Physical Health Score (ref) : 12 Global Mental Health Score (ref) : 15 Emilia Dickson RN-Navigator - 09/07/2020 17:00 EST Electronically signed by Alexander [facility] Conversion [place] Aide Cerner at 01/23/2023 10:52 AM CDT documented in this encounter Plan of Treatment Not on file documented as of this encounter Visit Diagnoses Not on filedocumented in this encounter Care Teams Emergency Medical Technician Basic Relationship Specialty Start Date End Date Leo Dennis MD [address] [facility] [address] [place] [address] PCP - General Family Medicine 01/20/24 documented as of this encounter
--- OUTSIDE RECORDS SUMMARY | 2025-04-12 13:07 | XMS_ITS | Clinical Summary ---
Author Organization [facility] Address [address] [place] [address] Care Team Providers Care Delinquent Tax Collector Name Role Phone Daniele Zhu MD, Brian T. MD Primary Care Provider [phone] Social History Tobacco Use Types Packs/Day Years Used Date Smoking Tobacco: Never Assessed Comments Unknown Sex and Gender Information Value Date Recorded Sex Assigned at Not on file Legal Sex Female 2:36 PM EDT Gender Identity Not on file Sexual Orientation Not on file Plan of Treatment Health Maintenance Due Date Last Done Comments Lipid Monitoring 02/28/1964 Tetanus Vaccination (Every 10 Years) 1965 Hepatitis C Virus (HCV) Screening 02/28/1968 Pneumococcal Vaccine: 50+ Years (1 of 1 - PCV) 997 Zoster-RZV(Shingrix) (1 of 2) 1997 Fall Risk Assessment 02/28/2012 Osteoporosis Screening 02/28/2012 RSV Vaccines (1 - 1-dose 75+ series) 2022 COVID-19 Vaccine ( - 2023- season) 2024 Advance Care Planning 09/02/2024 Depression Screening 09/02/2024 Influenza Vaccination (#1) 2025 Insurance [facility] MEDICARE Care Teams Delinquent Tax Collector Relationship Specialty Start Date End Date Leo Dennis MD [address] [place] [address] [place] [address] PCP - General Family Medicine 01/09/23 Daniele Zhu MD Orthopedic Surgery 01/09/23
--- OUTSIDE RECORDS SUMMARY | 2025-04-12 13:07 | XMS_ITS | Encounter Summary ---
Author Organization [employer] ([place], [place], [place], [place]) Address [address] [place] [address] Care Team Providers Care Cabin Cleaner Name Role Phone Leo Dennis MD Primary Care Provider + [phone] Encounter Details Date Type Department Care Team (Late st Contact Info) Description 08/17/[address] [facility] [address] [place] [address] Denisse Regalado MD [address] [place] [address] Social History Tobacco Use Types Packs/Day Years [...] Note - Denisse Regalado MD - 08/17/2020 9:59 AM EST Patient: HEMALATHA HASKINS [facility]: [id number] Age: 75 Years Sex: Female : 1945 *Operation Left total hip arthroplasty, direct anterior approach Indication for Surgery The patient has end-stage osteoarthritis of the above-mentioned hip. They have otherwise failed conservative measures and now present for total hip arthroplasty. The risks benefits and alternatives have been explained to the patient in detail and they have voiced their agreement. *Preoperative Diagnosis Osteoarthritis left hip *Postoperative Diagnosis Osteoarthritis left hip *Surgeon(s) Surgeon: Fabricio Wafer Abrading Machine Tender: Daniele Sanchez CSA *Procedure Narrative Patient was identified in the preoperative holding and the appropriate lower extremity was marked. They were transferred to operating theater, general anesthesia induced by the attending Anesthesia staff. The patient was given appropriate preop antibiotic prophylaxis as well as 1 g of intravenous tranexamic acid. Feet wrapped in Coban, placed in traction boots. The patient was then carefully positioned on the [place] table. The hip was then prepped and draped in the usual sterile fashion. Time-out was performed. Appropriate patient and operative extremity were confirmed. A standard 14 cm skin incision was made, 2 cm distal and lateral to the ASIS. Subcutaneous dissection carried down to the level of the TFL fascia. Fascia incised in line with the skin, reflected anteriorly off the TFL muscle belly. The interval between superior neck and the abductors were identified and reflected. Lateral femoral circumflex vessels were identified and cauterized. Rectus gently elevated off the anterior aspect of the femur and the inferior neck was exposed. Pericapsular fat was removed. Next, a standard L-shaped capsulotomy performed in line with the femoral neck. Anterior and posterior limbs were tagged and reflected. Capsule released medially off the calcar down to the level of the lesser trochanter. Next, with the hip in a slight amount of external rotation and gentle traction applied, the neck osteotomy was marked using preoperative templating and local landmarks. Osteotomy carried out in a napkin ring fashion. Residual femoral neck and head were then removed. Next, the acetabulum was exposed. Capsule was reflected. Labrum, pulvinar and other soft tissues were resected. Next, under fluoroscopic guidance, a series of hemispherical acetabular reamers were passed. [id number] ream, with an excellent bleeding cancellous bony bed. Good maintenance of anterior and posterior alas. We then impacted the appropriately sized cup under fluoroscopic guidance in approximately 40 degrees of abduction, 20 degrees of anteversion. We had an appropriate initial press-fit. We placed bone screws as needed, with excellent purchase. Acetabular osteophytes removed, if present. Cup was irrigated. Final liner impacted in place. We turned our attention to femoral exposure. A femoral hook placed proximal to gluteal sling. Leg was externally rotated, extended and adducted. Posterosuperior capsule reflected medially off the greater trochanter. Piriformis and capsule were released and the femoral hook was elevated. Next, a box osteotome used to remove lateral bone followed by canal finder. A chili pepper broach was used to set version parallel to the posterior cortex of the femur. Series of Accolade broaches were then passed. We passed sequentially larger broaches until we obtained good axial and rotational stability. Calcar planer passed over final broach. We trialed necks and heads. Stability, leg length and offset all tested at this point, found to be appropriate. Next, the proximal femur was again exposed and trials were removed. Final Accolade stem impacted into place. Position relative to final broach was assessed. We re-trialed heads and selected the above-mentioned ceramic head, which was impacted onto a clean and dry trunnion. Next, hip was reduced. Final fluoroscopic images were taken and saved. The wound was thoroughly irrigated with dilute Betadine lavage and normal saline. Pericapsular tissues infiltrated with a pain cocktail. 1 g vancomycin powder and 2 g topical tranexamic acid applied to the joint. The fascia was closed with #1 Stratafix. Skin closed in layers with Vicryl, Stratafix, and Dermabond. Wound was covered with an Aquacel dressing. Next, drapes were removed. Patient carefully transferred to a stretcher. Traction boots and Coban were removed. He was then extubated without incident, and taken to PACU in stable condition. All instruments, sponge and needle counts were correct at the end of the case. Drains/Packs Used None Anesthesia General *Estimated Blood Loss 300 cc *Findings Abx: 2g Ancef Implants: [place] Trident 2 acetabular component: 48 mm 6.5 mm Acetabular screws: 2 [place] Accolade 2 femoral component: Size 4 132 neck angle Trident X3 acetabular liner: 36 mm neutral Biolox Delta ceramic femoral head: 36 mm -2.5 Reaming technique: [id number] Initial press-fit assessment: excellent Acetabular osteophytes: none Femoral osteotomy level: 6mm above lesser trochanter Releases: piriformis, capsule Broach position relative to neck cut: flush Final implant position relative to final broach: same Stability: ER- 120 deg max IR- 70 Other: none *Specimen(s) Femoral head to pathology Complications None Technique Press-fit LAKESHA, direct anterior approach Date of Service Date/Time of Service SN - Proc - Start Time: 08/17/20 08:01:00 (08/17/20 08:10:10) documented in this encounter Plan of Treatment Not on file documented as of this encounter Visit Diagnoses Not on filedocumented in this encounter Care Teams Cabin Cleaner Relationship Specialty Start Date End Date Leo Dennis MD [address] [place] [facility] [address] [place] [address] PCP - General Family Medicine 01/20/24 documented as of this encounter
--- OUTSIDE RECORDS SUMMARY | 2025-04-12 13:07 | XMS_ITS | Encounter Summary ---
Author Organization [employer] ([place], [place], [place], [place]) Address [address] [place] [address] Care Team Providers Care Nurse Special Name Role Phone Leo Dennis MD Primary Care Provider + [phone] Encounter Details Date Type Department Care Team (Latest Contact Info) Description 04/05/2025 Travel Social History Tobacco Use Types Packs/Day Years [...] Do you speak a language other than [place] at [place]? No 01/20/2024 Do you want help with [...] on file documented as of this encounter Plan of Treatment Not on file documented as of this encounter Visit Diagnoses Not on filedocumented in this encounter Care Teams Nurse Special Relationship Specialty Start Date End Date Leo Dennis MD [address] [facility] [address] [place] [id number] PCP - General Family Medicine 01/20/24 documented as of this encounter
--- OUTSIDE RECORDS SUMMARY | 2025-04-12 13:07 | XMS_ITS | Encounter Summary ---
Author Organization [employer] ([place], [place], [place], [place]) Address [address] [place] [address] Care Team Providers Care Special Service Representative Name Role Phone Leo Dennis MD Primary Care Provider + [phone] Encounter Details Date Type Department Care Team (Late st Contact Info) Description 08/17/2020 Transcribed Document [facility] 1 [place] [address] Provider, lisa Blas MD Social [...] Notes * Cerner Conversion Note - [facility] Wan ProviderMD - 08/17/2020 10:28 AM EST Orthopedic Nurse Navigator Entered On: 08/17/2020 9:29 EST Performed On: 08/17/2020 9:28 EST by Emilia Dickson RN-Navigator Orthopedic Nurse Navigator Assessment Attended Joint Academy : Yes Joint AcademyType : Online Joint Glass Beveller Name : daughter Mara Type of Surgery : Anterior Hip Replacement, Left Does Patient Have a Walker? : No Walker/toilette Ordered for After Discharge : Yes Anticipated Discharge Plan : Home Health PT Anticipated Discharge Plan Comment : Pt plans to d/c home wiht the help of her leroyer and requests [facility] for home therapy. Emilia Dickson RN-Navigator - 08/17/2020 9:28 EST Teaching/Learning Assessment Barriers To Learning : None evident Individuals Taught : Patient Readiness to Learn : Cooperative Readiness to Learn : Demonstration, Explanation, Printed materials, Video/Educational TV Emilia Dickson RN-Navigator - 08/17/2020 9:28 EST Education Topics, Orthopedic Pre-Op Ortho Pre-Op Education Grid Ed-Assistive Devices : Verbalizes understanding DVT Prophylaxis : Verbalizes understanding Family Instructions : Verbalizes understanding Herbs/Supplement Instructions : Verbalizes understanding Laboratory Studies : Verbalizes understanding Medication Instructions : Verbalizes understanding NPO : Verbalizes understanding Ed-Occupational Therapy : Verbalizes understanding Pain Management : Verbalizes understanding Physical Prep : Verbalizes understanding Physical Therapy : Verbalizes understanding Plan of Care : Verbalizes understanding Positioning : Verbalizes understanding Post-op Activity/Exercise Regimen : Verbalizes understanding Postoperative Home Needs : Verbalizes understanding Post-operative Monitoring : Verbalizes understanding Post-Op Orthopedic Equipment : Verbalizes understanding Procedure Information : Verbalizes understanding Respiratory Care : Verbalizes understanding Surgical Site : Verbalizes understanding Tubes/Drains/IV's : Verbalizes understanding Turn/Cough/Deep Breathe : Verbalizes understanding Weight Bearing : Verbalizes understanding Ed-Orthopedic Pre-Op, Other : Verbalizes understanding Emilia Dickson RN-Navigator - 08/17/2020 9:28 EST documented in this encounter Plan of Treatment Not on file documented as of this encounter Visit Diagnoses Not on filedocumented in this encounter Care Teams Special Service Representative Relationship Specialty Start Date End Date Leo Dennis MD [address] [facility] [address] [place] [address] PCP - General Family Medicine 01/20/24 documented as of this encounter
--- OUTSIDE RECORDS SUMMARY | 2025-04-12 13:07 | XMS_ITS | Clinical Summary ---
Author Organization [employer] ([place], [place], [place], [place]) Address [address] [place] [address] Care Team Providers Care Cap Lining Machine Operator Name Role Phone Leo Dennis MD Primary Care Provider + [phone] Allergies Active Allergy Reactions Criticality Noted Date Comments Eygkxmr-Hdm-Tpm Reductase Inhibitors Anaphylaxis High 01/13/2024 Joints hurt [...] Active Active Problems No known active problems Encounters Date Type Department Care Team Description 04/05/2025 12:16 PM EDT - 04/05/2025 11:59 PM EDT Hospital Encounter Non-Invasive Cardiology 1 [place] [address] Daniele Phipps MD Varicose veins of bilateral lower extremities with pain Discharge Disposition: Home or Self Care 04/05/2025 Travel from Last 3 Months Social History Tobacco Use Types Packs/Day Years Used Date Smoking Tobacco: Former Cigarettes Q uit: 1972 Passive Smoke Exposure: Past Smokeless Tobacco: Never Tobacco Cessation:Counseling Given: Not Answered Alcohol Use Standard Drinks/Week Comments Not Asked 0 (1 standard drink = 0.6 oz pur e alcohol) occasional glass of wine Utilities Answer Date Recorded In the past 12 months, has t he [employer], gas, oil, or water [employer] threatened to shut off services in your [...] Do you speak a language other than Latvian at [place]? No 01/20/2024 Do you want help with [...] 01/14/2024 11:45 AM EDT Plan of Treatment Health Maintenance Due Date Last Done Comments Medicare Initial AWV G0438 DXA SCAN 1945 Depression Screening (12+) 1959 Hepatitis C Screening 1965 DTAP/TDAP/TD VACCINES (1 - Tdap) 1966 Pneumococcal 50+ years (1 of 1 - PCV) 1997 Shingles Vaccine (Zoster) (1 of 2) 1997 Respiratory Syncytial Virus (RSV) Adult or (1 - 1-dose 75+ series) 2022 COVID-19 VACCINE (2023-2 5 season) 2024 06/29/2022, 01/15/2022, 05/31/2021, Additional history exists Falls Risk Screening 09/02/2024 Tobacco Cessation Counseling and Screening (12+) 01/19/2025 01/20/2024 Influenza Vaccine (#1) 2025 , 06/09/2020, 07/06/2016 Medical Devices Implanted Type Area Torch Shearer Device Identifier Shelf Expiration Date Model / Serial / Lot Scr Low Profile 6.5x25mm 0515-4389 - [id number] Implanted:Qt y: 1 on 01/20/2024 by Denisse Regalado MD at [facility] IMPLANTS Right: Hip [employer] [id number] 10/28/2028 2875-6112 / / [id number] Scr Low Profile 6.5x25mm 8425-8340 - [id number] Implanted:Qt y: 1 on 01/20/2024 by Denisse Regalado MD at [facility] IMPLANTS Right: Hip [employer] [id number] 11/06/2028 9233-4734 / / [id number] Trident Acel Cluster 48mm D 702-04-48d - [id number] Implanted:Qt y: 1 on 01/20/2024 by Denisse Regalado MD at [facility] TOTAL JOINT CONSTRUCT Right: Hip [employer] [id number] 11/20/2028 702-04-48 D / / [id number] Insrt Trident Poly X3 36mm D 723-00-36d - [id number] Implanted:Qt y: 1 on 01/20/2024 by Denisse Regalado MD at [facility] TOTAL JOINT CONSTRUCT Right: Hip [employer] [id number] 10/09/2028 723-00-36 D / / [id number] Stem Hip Std Off Insignia Sz 4 0214-4309 - [id number] Implanted:Qt y: 1 on 01/20/2024 by Denisse Regalado MD at [facility] TOTAL JOINT CONSTRUCT Right: Hip [employer] [id number] 10/19/2028 2264-9591 / / [id number] Head Ceramic V40 36mm 6570-0-536 - [id number] Implanted:Qt y: 1 on 01/20/2024 by Denisse Regalado MD at [facility] TOTAL JOINT CONSTRUCT Right: Hip [employer] [id number] 07/22/2028 6570-0-53 6 / / [id number] Procedures Procedure Name Priority Date/Time Associated Diagnosis [...] Name BRO Boone Age 80 Patient Number [id number] Gender Female Race Unknown Ethnicity Corporate ID [id number] Height 63 Date of 1945 Weight 178 Accession Number [id number] BSA 1.84 m^2 Room Number BMI 31.53 kg/m^2 Referring GADIEL TRAORE Interpreting JULIAN BECERRA MD Physician Physician Physician MITA Cross Procedure Type of Study: Veins: [...] Name BRO Boone Age 80 Patient Number [id number] Gender Female Race Unknown Ethnicity Corporate ID [id number] Height 63 Date of 1945 Weight 178 Accession Number [id number] BSA 1.84 m^2 Room Number BMI 31.53 kg/m^2 Referring GADIEL TRAORE Interpreting JULIAN VILLANUEVA Physician Physician Physician MITA Cross Procedure Type of Study: Veins: [...] of deep or superficial venous thrombosis. Signature us Daniele Phipps MD CV VASCULAR ORDERABLES Final Res ult from Last 3 Months Insurance [facility] MEDICARE ADVANTAGE Advance Directives For more information, please contact: [phone] * Full Code (Latest Code Status on File) Date Activated Date Inactivated Comments 01/20/2024 9:21 AM 01/21/2024 12:54 PM * Full Code Date Activated Date Inactivated Comments 01/20/2024 5:20 AM 01/20/2024 9:21 AM Care Teams Cap Lining Machine Operator Relationship Specialty Start Date End Date Leo Dennis MD [address] [facility] [address] [place] [address] PCP - General Family Medicine 01/20/24
--- OUTSIDE RECORDS SUMMARY | 2025-04-12 13:07 | XMS_ITS | Encounter Summary ---
Author Organization [employer] ([place], [place], [place], [place]) Address [address] [place] [address] Care Team Providers Care Clin Application Specialist Name Role Phone Leo Dennis MD Primary Care Provider [phone] Encounter Details Date Type Department Care Team (Late st Contact Info) Description 08/17/2020 Transcribed Document [facility] Radiology [address] [place] [address] Provider, lisa Blas MD Social [...] Notes * Cerner Conversion Note - [facility] Wan ProviderMD - 08/17/2020 3:44 PM EST Final Discharge Planning Entered On: 08/17/2020 14:53 EST Performed On: 08/17/2020 14:44 EST by LISA ONTIVEROS RN-Dye House Wheel Operator Final Discharge Planning Discharge Arrangements : Patient Post-Acute Information Patient Name: HEMALATHA HASKINS Gender: Female : [birth year] Age: 75 Years No Post-Acute Placement(s) Listed No Post-Acute Service(s) Listed No [place] Referral(s) Listed Patient Offered Choice/Affiliations Explained : Yes Designation of Choice Signed : Yes Important Medicare Message Reviewed With : Other: Outpatient Transportation Needs : Family/Friend Follow Up Appointment Scheduled : Yes Is Patient High/Moderate Readmission Risk? : No Patient/Family Notified of Plan : Yes Is Patient Ready for Discharge? : Yes Physician Notified Patient is Ready for Discharge? : Yes Discharge To Care Management : Home Health Services (Related/SOC within 3 days)-06 LISA ONTIVEROS RN-Dye House Wheel Operator - 08/17/2020 14:44 EST Electronically signed by [facility] Conversion Dope Pourer Cerner at 01/23/2023 10:52 AM CDT documented in this encounter Plan of Treatment Not on file documented as of this encounter Visit Diagnoses Not on filedocumented in this encounter Care Teams Clin Application Specialist Relationship Specialty Start Date End Date Leo Dennis MD [address] [place] [facility] [address] [place] [address] PCP - General Family Medicine 01/20/24 documented as of this encounter
--- OUTSIDE RECORDS SUMMARY | 2025-04-12 13:07 | XMS_ITS | Encounter Summary ---
Author Organization [employer] ([place], [place], [place], [place]) Address [address] [place] [address] Care Team Providers Care Director Of Emergency Nursing Name Role Phone Leo Dennis MD Primary Care Provider + [phone] Encounter Details Date Type Department Care Team (Late st Contact Info) Description 08/17/2020 Transcribed Document [facility] Radiology 1 [place] [address] Provider, lisa Blas MD Social [...] Miscellaneous Notes * Cerner Conversion Note - [facility] Wan ProviderMD - 08/17/2020 9:57 AM EST Evaluation, Physical Therapy Entered On: 08/17/2020 11:23 EST Performed On: 08/17/2020 11:23 EST by SEBAS LEACH, PT General Information, PT Therapy Diagnosis, PT : Acute pain and difficulty walking Co-treated by, PT : Occupational Therapist Precautions in Place : Fall prevention measures, Hip precautions, anterior SEBAS LEACH PT - 08/17/2020 11:59 EST General Information Comment, PT : Admit Dx: s/p LLE DA LAKESHA LLE WBAT, no hip precautions SEBAS LEACH PT - 08/17/2020 12:01 EST Visit Type, PT : Initial evaluation Patient Orders : Order Date Order Ordering 08/17/2020 08:57 Physical Therapy Eval and Treat Ordered By: TRACIE MUNOZ MD-ORT Active Diagnoses : No Qualifying Diagnoses Onset of Problem, PT : 08/17/2020 EST Admission Date : 08/17/2020 05:46 Personal Devices : Personal Devices No Devices Recorded Assistive Devices : Assistive Devices No Devices Recorded SEBAS LEACH, PT - 08/17/2020 11:23 EST General Status Patient Received Status : Supine in bed Treatment Start Time : 08/17/2020 11:20 EST Patient Left Status : Sitting edge of bed, RN/PCT informed, Family/Visitors at bedside, All needs met and within reach Treatment End Time : 08/17/2020 11:50 EST Treatment Time : 30 Minute(s) SEBAS LEACH, PT - 08/17/2020 11:59 EST History and Environment Patient Lives With : Alone Persons Providing Information : Patient Home Equipment Therapy, PT : Cane, Walker Cane : Cane, single point Walker : Walker, front wheel Home Setup : One story Stairs : No SEBAS LEACH, PT - 08/17/2020 11:59 EST Prior Level of Function PT GRID Prior LOF Ambulation, Household : Independent Prior LOF Ambulation, Community : Independent Prior LOF Bed Mobility : Independent Prior LOF Toileting : Independent Prior LOF Transfer : Independent SEBAS LEACH, PT - 08/17/2020 11:59 EST Lower Extremity Right LE Strength : WFL LLE Active ROM : Impaired Left LE Strength : Impaired SEBAS LEACH, PT - 08/17/2020 12:01 EST RLE Active ROM : WFL SEBAS LEACH, PT - 08/17/2020 11:59 EST Functional Mobility Mobility Grid Sit to Stand : Rehab Minimal assistance (Comment: at EOB with OTx [SEBAS LEACH, PT - 08/17/2020 12:01 EST] ) Stand to Sit : Rehab Minimal assistance SEBAS LEACH, PT - 08/17/2020 12:01 EST Sit to Stand Device : Belt, gait, Walker, front wheel Stand to Sit Device : Belt, gait, Walker, front wheel Functional MobilityComment : cues for proper hand/foot placement SEBAS LEACH, PT - 08/17/2020 12:01 EST Gait Training/Assessment, PT Gait Assistance Level : Assist, minimal Walking Distance : 30ft x2 with RWx Jeanette for balance, and cues for gait sequencing; gait distances limited due to nausea Ambulatory Devices : Gait belt, Walker, front wheel SEBAS LEACH, PT - 08/17/2020 12:01 EST Cognition Assessment, PT Orientation : Oriented x 4 Attention Assessment : Present SEBAS LEACH, PT - 08/17/2020 12:01 EST Edu Topics Physical Therapy Education Grid Gait Training : Verbalizes understanding, Returns demonstration Role of Physical Therapy : Verbalizes understanding, Returns demonstration Transfer Training : Verbalizes understanding, Returns demonstration SEBAS LEACH, PT - 08/17/2020 12:01 EST Indication Assesessment, PT Physical Therapy Indicated : No SEBAS LEACH, PT - 08/17/2020 12:01 EST Plan of Care, PT PT Tx Plan/Goals Established w Patient : No SEBAS LEACH, PT - 08/17/2020 12:01 EST Treatment Note Subjective Comment : pt agreed to PTx eval Patient's Response to Treatment : Stable Assessment : pt with marked L hip pain, limited [...] answered/deferred appropriately with pt and family SEBAS LEACH, PT - 08/17/2020 12:01 EST Pain Assessment Pain Scaled Used : 0-10 Pain scale Pain Score Pre-Intervention : 10 Pain Score Post-Intervention. : 10 Location : Hip, left Pain Intervention, Drug : Medicated SEBAS LEACH PT - 08/17/2020 12:01 EST Image 1 - Images currently included in the form version of this document have not been included in the text rendition version of the form. Anticipated Discharge Needs, OT/PT Anticipated Discharge to : Home, with home health Anticipated Home Equipment : Other: RWx present at pod Recommend Continued Therapy at Discharge : Yes SEBAS LEACH, PT - 08/17/2020 12:[address] [facility] Charges PT Eval Moderate Complexity : 1 SEBAS LEACH PT - 08/17/2020 12:01 EST documented in this encounter Plan of Treatment Not on file documented as of this encounter Visit Diagnoses Not on filedocumented in this encounter Care Teams Director Of Emergency Nursing Relationship Specialty Start Date End Date Leo Dennis MD [address] [facility] [address] [place] [phone] PCP - General Family Medicine 01/20/24 documented as of this encounter
--- OUTSIDE RECORDS SUMMARY | 2025-04-12 13:07 | XMS_ITS | Encounter Summary ---
Author Organization [employer] ([place], [place], [place], [place]) Address [address] [place] [address] Care Team Providers Care Poacher Wringer Operator Name Role Phone Leo Dennis MD Primary Care Provider + [phone] Encounter Details Date Type Department Care Team (Late st Contact Info) Description 08/17/2020 Transcribed Document [facility] [address] [place] [address] Provider, [facility] Wan Social History Tobacco Use Types Packs/Day Years Used Date Smoking Tobacco: Never Assessed Comments Unknown Sex and Gender Information Value Date Recorded Sex Assigned at Female 2022 8:47 PM CDT Legal Sex Female 8:47 PM CDT Gender Identity Female 2022 8:47 PM CDT Sexual Orientation Not on file documented as of this encounter Miscellaneous Notes * Cerner Conversion Note - [facility] Wan ProviderMD - 08/17/2020 9:01 AM EST [facility] Main OR PACU Summary Primary Physician: TRACIE MUNOZ MD-ORT Finalized Date/Time: 08/30/20 14:00:49 Pt. Name: HEMALATHA HASKINS/Sex: 1945 Female Med Rec #: [id number] Physician: TRACIE MUNOZ MD-ORT Financial #: [id number] Pt. Type: O Room/Bed: Admit/Disch: 08/17/20 05:46:00 - 08/17/20 12:00:00 Institution: [facility] Main OR PACU I Case Times Entry 1 In PACU I 08/17/20 09:13:00 Ready for PACU 08/17/20 10:52:00 Discharge Discharge from PACU 08/17/20 10:53:00 I Last Modified By: JOCELYN WALLACE RN 08/17/20 10:53:23 Finalized By: Deya Gann, Nurse Cupola Operator Signatures Signed By: JOCELYN WALLACE RN 08/17/20 10:53 Deya Gann, Nurse B2B Sales Manager 08/30/20 14:00 Unfinalized History Date/Time Username Reason for Unfinalizing Freetext Reason for Unfinalizing 08/30/20 14:00 [id number] Chart Audit Electronically signed by [facility] Conversion Engraver Ornamental Design Cerner at 01/23/2023 10:52 AM CDT documented in this encounter Plan of Treatment Not on file documented as of this encounter Visit Diagnoses Not on filedocumented in this encounter Care Teams Poacher Wringer Operator Relationship Specialty Start Date End Date Leo Dennis MD [address] [facility] [address] [place] [id number] PCP - General Family Medicine 01/20/24 documented as of this encounter
--- OUTSIDE RECORDS SUMMARY | 2025-04-12 13:07 | XMS_ITS | Encounter Summary ---
Author Organization [employer] ([place], [place], [place], [place]) Address [address] [place] [address] Care Team Providers Care Emergency Worker Name Role Phone Riaz Dennis MD Primary Care Provider [phone] Encounter Details Date Type Department Care Team (Late st Contact Info) Description 08/17/2020 Transcribed Document [facility] [address] [place] [address] Provider, lisa Blas MD Social [...] Miscellaneous Notes * Cerner Conversion Note - [facility] Wan ProviderMD - 08/17/2020 3:39 PM EST Initial Discharge Planning Entered On: 08/17/2020 14:43 EST Performed On: 08/17/2020 14:39 EST by LISA ONTIVEROS, RN-Senior Biostatistician/Group Leader Initial Assessment I Previously Documented Living Environment : No qualifying data available. Living Situation : Home Patient Lives With : Alone Is the Patient a Caregiver at Home? : No Emergency Contact #1 : fam Emergency Contact #1 Emergency Contact #1 Relationship : daughter Emergency Contact #2 : , Emergency Contact #2 Phone Number : , Emergency Contact #2 Relationship : , Enter Doctors Name : RIAZ DENNIS (REF) Mick Does Patient have PCP Listed? : Yes LISA ONTIVEROS RN-Senior Biostatistician/Group Leader - 08/17/2020 14:39 EST Initial Assessment II Sensory and Motor Deficits : None Current Home Treatments and Equipment : None Does the Patient have a Floor to SNF Benefit? : No LISA ONTIVEROS RN-Senior Biostatistician/Group Leader - 08/17/2020 14:39 EST Discharge Needs I Anticipated Discharge Date : 08/17/2020 EST Anticipated Discharge To, CM : Home with home health Current Home Treatment/Equipment : Current Home Treatment/Equipment No qualifying data available. Post Acute/Home Treatments : Walker Documentation Status Complete : Yes LISA ONTIVEROS RN-Senior Biostatistician/Group Leader - 08/17/2020 14:39 EST Discharge Needs II Professional Skilled Services : Professional Skilled Services No qualifying data available. Needs Assistance with Transportation : No Discharge Options Discussed with Patient : DME, Home Health LISA ONTIVEROS RN-Senior Biostatistician/Group Leader - 08/17/2020 14:39 EST Narrative Note Narrative Note : 75yo female pt s/p LTHA-DA. Pt is going home same day surgery. Pt has no dme provider pref and chose [facility] for HH during [employer]. FRW obtained from [facility] and has been delivered. Referral sent to [facility] via [facility] and informed Fam. No other CM needs noted. LISA ONTIVEROS RN-Senior Biostatistician/Group Leader - 08/17/2020 14:39 EST documented in this encounter Plan of Treatment Not on file documented as of this encounter Visit Diagnoses Not on filedocumented in this encounter Care Teams Emergency Worker Relationship Specialty Start Date End Date Riaz Dennis MD [address] [facility] [address] [place] [phone] PCP - General Family Medicine 01/20/24 documented as of this encounter
== END 2025-04-12 23:59 | disposition home or self-care (01) ==
LOC: RAD 13:02
PROVIDERS: PCP Family Medicine; Visit Provider Family Medicine
DX: Z13.820 Encounter for screening for osteoporosis (principal); M81.0 Age-related osteoporosis without current pathological fracture
CPT/HCPCS: 77080

== ENCOUNTER 2025-09-01 15:00 | Outpatient (RCR) | payer MEDICARE, SELFPAY | END 2025-09-01 23:59 | disposition home or self-care (01) | LOC: PT 15:00 | PROVIDERS: PCP Family Medicine; Visit Provider Orthopaedic Surgery | DX: Z47.89 Encounter for other orthopedic aftercare (principal); Z96.651 Presence of right artificial knee joint | CPT/HCPCS: 97110; 97162 ==